=== PATIENT | male | born 1975 | race Caucasian/White ===

== ENCOUNTER 2024-07-27 09:34 | Emergency (ER) | payer MEDICAID, SELFPAY ==
[2024-07-27 09:57] VITALS: BP 151/102; PULSE 93; RESP 16; TEMP 36.9; O2SAT 97; BMI 38.7
--- NOTE | 2024-07-27 10:16 | EDNOTE_ITS ---
ED Eye Problem RME/HPI General Chief complaint: Eye Problems Stated complaint: RIGHT EYE PAIN Time Seen by Provider: 07/27/24 10:06 Arrival date/time: 07/27/24 09:34 49-year-old male reports with complaints of right eye lid itching and irritation for several days. Patient states he has been applying [id number] triple antibiotic ointment to the eye which seems to burn the eye and make the symptoms worse. He denies any loss of vision floaters or tunnel vision. No discharge from the eye headaches dizziness or other vision changes Limitations: no limitations Related Data Home Medications ?Medication ?Instructions ?Recorded ?Confirmed carvedilol 3.125 mg tablet (Coreg) 3.125 mg PO BID 06/21/21 01/19/24 albuterol sulfate 90 mcg/actuation 1 puff inhalation Q4H PRN sob 01/23/22 01/19/24 aerosol inhaler buspirone 10 mg tablet 10 mg PO BID 01/23/22 01/19/24 losartan 100 1 tab PO QDAY 01/23/22 01/19/24 mg-hydrochlorothiazide 25 mg tablet allopurinol 100 mg tablet 100 mg PO DAILY 09/11/22 01/19/24 diclofenac sodium 1 % topical gel 1 g topical DAILY PRN Pain 09/11/22 01/19/24 Previous Rx's ?Medication ?Instructions ?Recorded ondansetron 8 mg disintegrating 8 mg PO Q8H PRN nausea and 12/27/23 tablet vomiting #20 tabs hydrocodone 5 mg-acetaminophen 325 1 tab PO BID PRN pain #10 tabs 02/02/24 mg tablet metoclopramide HCl 10 mg tablet 10 mg PO Q6H PRN nausea and 02/02/24 (Reglan) vomiting #30 tabs Allergies Allergy/AdvReac Type Severity Reaction Status Date / Time No Known Allergies Allergy Verified 07/27/24 09:35 Review of Systems Constitutional Constitutional: Denies chills, Denies fever(s) and Denies headache(s) Eyes Eyes: Reports irritation, Reports itchy eyes and Reports eye pain ENT Ears, Nose, Mouth, and Throat: Denies dizziness and Denies headache(s) Integumentary/Breasts Skin/Breast: Reports erythema and Denies rash Neurologic Neurologic: Denies dizziness and Denies headache(s) Hematologic/Lymphatic Hematologic/Lymphatic: Denies easy bleeding and Denies easy bruising Allergic/Immunologic Allergic/Immunologic: Reports itchy eyes Past Medical History Past Medical History NEUROLOGIC: Negative Neurological Disorders, Cerebrovascular Accident, Transient Ischemic Attacks (TIA), Dementia, Alzheimer's Disease, Parkinson's Disease, Brain Tumor, Meningitis, Seizures, Epilepsy, Multiple Sclerosis, Cerebral Palsy, Amyotrophic Lateral Sclerosis (ALS/Shirley Gehrig's), Guillain-Novelty Syndrome, Spina Bifida, Paralysis, Peripheral Neuropathy, Paulino's Palsy, Subdural Hematoma, Migraine, Head Trauma, Spinal Cord Injury or Traumatic Brain Injury CARDIAC: Positive Cardiac Disorders (CHF), Congestive Heart Failure and Hypertension; Negative Myocardial Infarction, Cardiac Arrhythmia, Atrial Fibrillation, Angina, Heart Murmur, Coronary Artery Disease, Atherosclerotic Heart Disease, Peripheral Vascular Disease, Hypercholesterolemia, Aneurysm, Congenital Heart Disease, Valvular Heart Disease, Rheumatic Fever, Cardiomyopathy, Edema, Pericarditis, Cellulitis, Deep Vein Thrombosis, Hypotension or Varicose Veins RESPIRATORY: Negative Chronic Obstructive Pulmonary Disease (COPD), Asthma, Bronchitis, Emphysema, Pneumonia, Pulmonary Fibrosis, Cystic Fibrosis, Tuberculosis, Pulmonary Embolism, Pulmonary Edema or Sleep Apnea GASTROINTESTINAL: Positive Gastrointestinal Disorders, Diverticulitis, Gastroesophageal Reflux Disease and Obesity; Negative Hepatitis, Cirrhosis, Pancreatitis, Celiac Disease, Gall Bladder Disease, Gastrointestinal Bleed, Esophageal Varices, Bernal's Esophagus, Colitis, Ulcerative Colitis, Diverticulosis, Ulcer, Colorectal Cancer, Irritable Bowel, Crohn's Disease, Obstructive Bowel, Hiatal Hernia or Hemorrhoids GENITOURINARY: Negative Genitourinary Disorders, Renal Disease, Kidney Stones, Polycystic Kidney Disease, Neurogenic Bladder, Inguinal Hernia, Dialysis, Prostate Cancer or Benign Prostatic Hyperplasia REPRODUCTIVE: Negative Breast Cancer, Fibroids, Genital Herpes, Gonorrhea, Syphilis or Testicular Cancer MUSCULOSKELETAL: Positive Musculoskeletal Disorders and Gout; Negative Muscular Dystrophy, Myasthenia Gravis, Marfan's Syndrome, Bone Cancer, Arthritis, Rheumatoid Arthritis, Osteoporosis, Degenerative Disk Disease, Scoliosis, Carpal Tunnel Syndrome, Fibromyalgia, Fractures, Degenerative Joint Disease, Osteomyelitis or Poliovirus ENT: Negative Cataracts, Glaucoma, Blind, Retinal Detachment, Macular Degeneration, Ear Infection, Deafness, Head Trauma or Eye Prosthesis ENDOCRINE: Negative Endocrine Disorders, Diabetes Mellitus Type 1, Diabetes Mellitus Type 2, Hypoglycemia, [place]'s Syndrome, Mega's Disease, Hyperthyroidism, Hypothyroidism, Parathyroid Disease, Pituitary Disease, Systemic Lupus Erythematosus, Syndrome of Inappropriate Antidiuretic Hormone (SIADH), Adrenal Disease or Graves' Disease HEMATOLOGIC: Negative Blood Disorders, Anemia, Leukemia, Hemophilia, Thalassemia, Sickle Cell Disease or Clotting Problems PSYCHO/SOCIAL: Positive Recreational Drug Use, Depression and Anxiety; Negative Psychiatric Problems, Schizophrenia, Bipolar Disorder, Behavior Problems, Self-Mutilation, Attention Deficit Disorder, Attention Deficit Hyperactivity Disorder, Depression, Post Traumatic Stress Disorder or Eating Disorder OTHER HISTORY: Positive Hospitalization, Chicken Pox and Measles; Negative Autoimmune Disease, Down Syndrome, Autism, Developmental Delay, Shingles, Falls, Blood Transfusions, Blood Transfusion Reaction, Anesthesia Reactions, Organ Transplant, Chemotherapy, Radiation Therapy, Hyperbaric Therapy, MRSA, VRSA, Vancomycin-Resistant Enterococci, Human Immunodeficiency Virus (HIV), Mumps, Rubella ([place]ic Measles), Pertussis, Clostridium Difficile, Cancer, Breast Cancer, Cervical Cancer, Colorectal Cancer, Lung Cancer, Ovarian Cancer, Prostate Cancer or Testicular Cancer Family History FAMILY HISTORY: Positive Family Cardiac Disorders and Family Gastrointestinal Problems; Negative Family Psychiatric Problems, Family Respiratory Disorders, Family Cancer, Family Surgery or Family Anesthesia Reaction Surgical History SURGICAL: Positive Tonsillectomy; Negative Cardiac Surgery, Open Heart Surgery, Coronary Artery Bypass Graft, Valve Replacement, Vascular Surgery, Coronary Stent, Cardiac Catheterization, Pacemaker, Angiogram, Auto Implanted Cardiovert Defib, Carotid Endarterectomy, Endocrine Surgery, Thyroidectomy, Ear Surgery, Tympanostomy Tube, Eye Surgery, Nose Surgery, Oral Surgery, Adenoidectomy, Cochlear Implant, Corneal Transplant, Throat Surgery, Abdominal Surgery, Tracheostomy, Gastric Bypass Surgery, Gastrostomy, Bowel Surgery, Nephrectomy, Transurethral Resection, Joint Replacement, Amputation, Open Reduction Internal Fixation, Arthroscopy, Neurologic Surgery, Brain Shunt, Mastectomy, Lumpectomy, Hysterectomy, Tubal Ligation, Section, Vasectomy or Organ Transplant Social History SMOKING STATUS: Current every day smoker SECOND HAND EXPOSURE: No SUBSTANCE USE: marijuana and methamphetamine ED Exam General Limitations: Present no limitations General appearance: Present alert and in no apparent distress Head Head exam: Present atraumatic Eye Eye exam: Present PERRL, EOMI and other (Right lower lid with large hordeolum mildly tender, no discharge no sclera involvement, conjunctiva mildly erythematous); Absent nystagmus Neurological Exam Neurological exam: Present alert, oriented X3 and CN II-XII intact Psychiatric Psychiatric exam: Present normal affect and normal mood Skin Skin exam: Present warm, dry, intact and normal color Course Quality Measures none Vital Signs Vital signs: Vital Signs Temperature 98.5 F 07/27/24 09:57 Pulse Rate 93 07/27/24 09:57 Respiratory Rate 16 07/27/24 09:57 Blood Pressure 151/102 H 07/27/24 09:57 Pulse Oximetry (%) 97 07/27/24 09:57 Oxygen Delivery Method Room Air 07/27/24 09:57 Eye Patient data External records reviewed:: None Clinical information provided by:: patient Social determinants that could affect healthcare access:: none Patient has the following chronic illnesses:: n/a How is presenting disease/condition affected by chronic disease/condition?: no chronic disease Evaluation data The following diagnostics were reviewed and interpreted by me:: other (specify) Lab and/or radiology exams considered but not ordered:: none Interpretation Summary: na Medications / Prescriptions Medications or Prescriptions considered but not ordered:: n/a Medication administrations:: n/a Consultations Consultation(s) initiated? (list below): No Diagnosis Eye Problem Differential Diagnosis: other (chalazion, blepharitis, hordeolum) Most likely diagnosis given after review of the tests above:: Hordeolum Admission Indicated Admission indicated?: not indicated Admission Request Was there a request for admission?: No Disposition Plan Disposition Plan: Discharge Discharge Attestation Discharge Attestation: The patient and all family members were given an opportunity to ask questions and understood the discharge instructions. Discharge instructions specifically effects, indications for sooner follow up or return to the emergency department, and the expected course of current diagnosis. Patient condition: Stable Discharge Plan Plan Patient Disposition: HOME (Self Care) Prescriptions/Referrals Prescriptions/Med Rec: No Action carvedilol [Coreg] 3.125 mg tablet 3.125 mg PO BID Rx Instructions: must administer with a meal/food losartan-hydrochlorothiazide 100-25 mg tablet 1 tab PO QDAY buspirone 10 mg tablet 10 mg PO BID albuterol sulfate 90 mcg/actuation HFA aerosol inhaler 1 puff INHALATION Q4H PRN (Reason: sob) allopurinol 100 mg tablet 100 mg PO DAILY diclofenac sodium 1 % gel 1 g TOPICAL DAILY PRN (Reason: Pain) ondansetron 8 mg tablet,disintegrating 8 mg PO Q8H PRN (Reason: nausea and vomiting) Qty: 20 0RF hydrocodone-acetaminophen 5-325 mg tablet 1 tab PO BID MDD 10 PRN (Reason: pain) Qty: 10 0RF metoclopramide HCl [Reglan] 10 mg tablet 10 mg PO Q6H PRN (Reason: nausea and vomiting) Qty: 30 0RF Problem List Clinical Impression: Hordeolum externum of right lower eyelid, Elevated blood pressure reading Patient/Caregiver Discharge Instructions Discharge Activity: activity as tolerated Education Materials: ED Sty Additional Instructions: Use [employer] baby shampoo no more tears and warm water to wash eyelids and lash area and apply warm compresses periodically. Follow with primary care provider if no improvement in 7 days Print Language: Yoruba Stand Alone Forms: Lia Award Info., Patient Portal Info Letter
== END 2024-07-27 10:24 | disposition home or self-care (01) ==
PROVIDERS: Emergency Provider Emergency Medicine; PCP Family Medicine
DX: H00.012 Hordeolum externum right lower eyelid (principal); I10 Essential (primary) hypertension; F17.290 Nicotine dependence, other tobacco product, uncomplicated
CPT/HCPCS: 99281

== ENCOUNTER 2024-09-12 06:01 | Emergency (ER) | payer MEDICAID, SELFPAY ==
[2024-09-12 06:02] VITALS: BMI 39.9
[2024-09-12 06:08] VITALS: BP 167/94; PULSE 110; RESP 18; TEMP 37.1; O2SAT 99
--- NOTE | 2024-09-12 06:24 | PD.EDURI ---
Upper Respiratory Inf. RME/HPI General Chief Complaint: Flu Like Symptoms Stated Complaint: COUGH,BODYACHES Time Seen by Provider: 09/12/24 06:08 Source: patient Arrival date/time: 09/12/24 06:01 This is a 49-year-old male presents to the emergency department with complaints of cough body aches rhinorrhea for 2 days. He does report he was exposed by his family member with URI symptoms. His friend tested him for COVID at home with an old home COVID test and it was positive. Patient is here requesting COVID test for his symptoms. Has been taking Mucinex and ibuprofen for his symptoms with mild relief. Denies dyspnea, chest pain. Mode of arrival: ambulatory Related Data Home Medications ?Medication ?Instructions ?Recorded ?Confirmed carvedilol 3.125 mg tablet (Coreg) 3.125 mg PO BID 06/21/21 01/19/24 albuterol sulfate 90 mcg/actuation 1 puff inhalation Q4H PRN sob 01/23/22 01/19/24 aerosol inhaler buspirone 10 mg tablet 10 mg PO BID 01/23/22 01/19/24 losartan 100 1 tab PO QDAY 01/23/22 01/19/24 mg-hydrochlorothiazide 25 mg tablet allopurinol 100 mg tablet 100 mg PO DAILY 09/11/22 01/19/24 diclofenac sodium 1 % topical gel 1 g topical DAILY PRN Pain 09/11/22 01/19/24 Previous Rx's ?Medication ?Instructions ?Recorded ondansetron 8 mg disintegrating 8 mg PO Q8H PRN nausea and 12/27/23 tablet vomiting #20 tabs hydrocodone 5 mg-acetaminophen 325 1 tab PO BID PRN pain #10 tabs 02/02/24 mg tablet metoclopramide HCl 10 mg tablet 10 mg PO Q6H PRN nausea and 02/02/24 (Reglan) vomiting #30 tabs albuterol sulfate 90 mcg/actuation 2 inh inhalation Q6H PRN shortness 09/12/24 breath activated powder inhaler of breath or wheezing #1 ea nirmatrelvir 300 mg (150 mg See Rx Instructions PO .COMPLEX 09/12/24 x2)-ritonavir 100 mg tablet,dose #30 tabs pack (Paxlovid) promethazine-DM 6.25 mg-15 mg/5 mL 5 ml PO Q6H PRN cough #118 mL 09/12/24 oral syrup Allergies Allergy/AdvReac Type Severity Reaction Status Date / Time No Known Allergies Allergy Verified 07/27/24 09:35 Review of Systems Review of Systems Systems Reviewed: All systems reviewed, normal except as documented Narrative Review of Systems: Gen: No fever, no chills, no weight loss, + body aches EYES: No discharge, no visual changes, no pain HEENT: No ear pain, + nasal congestion, no sore throat PULM: No shortness of breath, + cough cough, no congestion CV: No chest pain, no dyspnea on exertion, no palpitations GI: No nausea, no vomiting, no diarrhea, no pain, no constipation : No frequency, no urgency, no dysuria Musc/skel: No joint pain, no back pain Skin: No rash Psyc: No hallucinations, no depression Heme/Lymph: No easy bleeding or bruising tendencies Neuro: No weakness, no headache Course Quality Measures none Orders Category Date Time Status Bedside COVID-19 Antigen Test NOW Care 09/12/24 06:23 Active Bedside Influenza A&B Antigen Test NOW Care 09/12/24 06:23 Active Acetaminophen Tab [Tylenol ES Tab] Med 09/12/24 06:23 Discontinued 1,000 mg PO X1 ONE Vital Signs Vital signs: Vital Signs Temperature 98.8 F 09/12/24 06:08 Pulse Rate 110 H 09/12/24 06:08 Respiratory Rate 18 09/12/24 06:08 Blood Pressure 167/94 H 09/12/24 06:08 Pulse Oximetry (%) 99 09/12/24 06:08 Oxygen Delivery Method Room Air 09/12/24 06:08 Upper Respiratory Infection MDM Narrative MDM Narrative:: [id number] negative for COVID was positive. PT is awake and alert in no resp distress. Will provide strict return precautions and instructions on self-isolation/quarantine and anticipatory guidance.Given History and Exam I have a lower suspicion for: Emergent CardioPulmonary causes [such as Acute Asthma or COPD Exacerbation, acute Heart Failure or exacerbation, PE, PTX, atypical ACS, PNA]. Patient advice to take medications as directed. Discussed that viral URIs are a self-limiting disease, and can taking up to 2 weeks to resolve. Ibuprofen prn fevers. Fluids, soups, tea, honey advised. Use humidifier at night. . Educated patient on signs and symptoms which would require immediate evaluation in the nearest ER. Advise patient if symptoms do no improved or worsen to return to the emergency room. Patient verbalized understanding and agreed to current treatment plan Patient data External records reviewed:: [facility] previous records Clinical information provided by:: patient Social determinants that could affect healthcare access:: none Patient has the following chronic illnesses:: Hypertension How is presenting disease/condition affected by chronic disease/condition?: uneffected by Evaluation data The following diagnostics were reviewed and interpreted by me:: lab results Lab and/or radiology exams considered but not ordered:: No Interpretation Summary: Bedside COVID Bedside flu Medications / Prescriptions Medications or Prescriptions considered but not ordered:: No Medication administrations:: Medication Administration History Discontinued Medications Acetaminophen (Acetaminophen 500 Mg Tablet) 1,000 mg PO X1 ONE Stop: 09/12/24 06:24 Last Admin: 09/12/24 06:34 Dose: 1,000 mg Documented By: CVL Tylenol Consultations Consultation(s) initiated? (list below): No Diagnosis Upper Respiratory Differential Diagnosis: upper respiratory infection, viral infection, bronchitis, influenza and pharyngitis Most likely diagnosis given after review of the tests above:: COVID-19 infection Admission Indicated Admission indicated?: not indicated Admission Request Was there a request for admission?: No Disposition Plan Disposition Plan: Discharge Discharge Attestation Discharge Attestation: The patient and all family members were given an opportunity to ask questions and understood the discharge instructions. Discharge instructions specifically effects, indications for sooner follow up or return to the emergency department, and the expected course of current diagnosis. Patient condition: Stable Discharge Plan Plan Patient Disposition: HOME (Self Care) Patient condition on transfer: Stable Prescriptions/Referrals Prescriptions/Med Rec: New Paxlovid 300 mg (150 mg x 2)-100 mg tablets,dose pack See Rx Instructions .ROUTE .COMPLEX Qty: 30 0RF Rx Instructions: take TWO 150 mg tablets of nirmatrelvir with ONE 100 mg tablet of ritonavir twice daily for 5 days albuterol sulfate 90 mcg/actuation aerosol powdr breath activated 2 inh inhalation Q6H PRN (Reason: shortness of breath or wheezing) Qty: 1 0RF promethazine-DM 6.25-15 mg/5 mL syrup 5 ml PO Q6H PRN (Reason: cough) Qty: 118 0RF No Action carvedilol [Coreg] 3.125 mg tablet 3.125 mg PO BID Rx Instructions: must administer with a meal/food losartan-hydrochlorothiazide 100-25 mg tablet 1 tab PO QDAY buspirone 10 mg tablet 10 mg PO BID albuterol sulfate 90 mcg/actuation HFA aerosol inhaler 1 puff INHALATION Q4H PRN (Reason: sob) allopurinol 100 mg tablet 100 mg PO DAILY diclofenac sodium 1 % gel 1 g TOPICAL DAILY PRN (Reason: Pain) ondansetron 8 mg tablet,disintegrating 8 mg PO Q8H PRN (Reason: nausea and vomiting) Qty: 20 0RF hydrocodone-acetaminophen 5-325 mg tablet 1 tab PO BID MDD 10 PRN (Reason: pain) Qty: 10 0RF metoclopramide HCl [Reglan] 10 mg tablet 10 mg PO Q6H PRN (Reason: nausea and vomiting) Qty: 30 0RF Problem List Clinical Impression: COVID-19 Patient/Caregiver Discharge Instructions Discharge Activity: activity as tolerated Education Materials: COVID-19 Home Care Additional Instructions: - It is very important to keep hydrated and keep active despite your COVID infection. -Start your medication today once you receive it from the pharmacy. -Also take additional supportive therapies like Tylenol, ibuprofen Mucinex to help with your cold symptoms. -Follow-up with your primary doctor in 2 to 3 days for follow-up care Return to the emergency department if there is any changes in your condition or call 911. Print Language: Greek Stand Alone Forms: Lia Award Info., Work/School Release, Patient Portal Info Letter PA/GASTON Supervising Physician CRISTIN/GASTON Supervising Physician: Dr Walton
[2024-09-12] MEDS: ACETAMINOPHEN 500 MG TABLET 1000 MG PO (06:34)
[2024-09-12 06:39] VITALS: PULSE 95
[2024-09-12 06:43] VITALS: RESP 18
== END 2024-09-12 06:43 | disposition home or self-care (01) ==
LOC: SERX 06:51
PROVIDERS: Emergency Provider Emergency Medicine; PCP Family Medicine
DX: U07.1 COVID-19 (principal)
CPT/HCPCS: 87400; 87811; 99283; A9270

== ENCOUNTER 2024-09-17 13:12 | Emergency (ER) | payer MEDICAID, SELFPAY ==
[2024-09-17 13:14] VITALS: PULSE 106; RESP 20; O2SAT 99
[2024-09-17 13:42] VITALS: BP 175/94; PULSE 90; RESP 18; TEMP 36.6; O2SAT 98; BMI 39.9
--- NOTE | 2024-09-17 13:44 | PD.EDRME ---
Rapid Medical Screening Exam RME Arrival date/time: 09/17/24 13:12 49-year-old male with history of hypertension and CHF presents to the emergency department today stating he went on a drinking binge and used drugs, patient reports that he tested positive for COVID-19 and therefore he is concerned Chief Complaint: Shortness of Breath/Dyspnea Vital signs: Vital Signs Temperature 98 F 09/17/24 13:42 Pulse Rate 90 09/17/24 13:42 Respiratory Rate 18 09/17/24 13:42 Blood Pressure 175/94 H 09/17/24 13:42 Pulse Oximetry (%) 98 09/17/24 13:42 Oxygen Delivery Method Room Air 09/17/24 13:42
== END 2024-09-17 15:01 | disposition left against medical advice (07) ==
PROVIDERS: Emergency Provider Emergency Medicine; PCP Family Medicine
DX: R06.02 Shortness of breath (principal); Z53.29 Procedure and treatment not carried out because of patient's decision for other reasons
CPT/HCPCS: 80053; 80307; 83880; 84484; 85025; 85610; 85730; 93005; 99281

== ENCOUNTER 2025-02-26 09:16 | Emergency (ER) | payer MEDICAID, SELFPAY ==
--- NOTE | 2025-02-26 09:19 | EKG_ITS ---
[facility] Test Date: 2025-02-26 Pat Name: JOSE HOOD Department: Room: - Gender: Male Tonal Regulator: : 1975 Requested By: Lorenzo Lipscomb (HOSPITALITY SERVICES MANAGER) Order Number: [id number] Reading MD: Lorenzo Lipscomb (HOSPITALITY SERVICES MANAGER) Measurements Intervals [place] Rate: 89 P: 49 OR: 155 QRS: -53 QRSD: 102 T: 73 QT: 385 QTc: 470 Interpretive Statements SINUS RHYTHM PATTERN CONSISTENT WITH PULMONARY DISEASE LEFT ANTERIOR FASCICULAR BLOCK [QRS AXIS <= -45, QR IN I, RS IN II] NONSPECIFIC T-WAVE ABNORMALITY Compared to ECG 12/27/2023 17:14:42 T-wave abnormality now present /store/S0/[id number].pdf
[2025-02-26 09:23] VITALS: BP 126/87; PULSE 95; RESP 18; TEMP 36.8; O2SAT 98; BMI 36.9
--- NOTE | 2025-02-26 09:33 | XR_ITS ---
Examination: PA lateral chest 2 views TECHNIQUE: Upright PA lateral chest 2 views examination: PA lateral chest 2 views TECHNIQUE: Upright PA lateral chest 2 views Date and time: February 26, 2025 0955 hours INDICATIONS: Acute chest pain today. FINDINGS: Normal heart size. The lungs are clear. The osseous structures are intact IMPRESSION: No active disease.
--- NOTE | 2025-02-26 09:33 | XR_ITS ---
Examination: CT brain head without contrast. 2-D sagittal coronal reconstructions Date and time of exam:February 24, 20102024 1008 hours Comparison November 02, 2017 INDICATIONS: Headaches numbness in the face this morning CTDI: vol (mGy):61.1 DLP: (mGycm):1276 Technique: Multiple CT axial sections of the brain have been obtained, 5 mm slice thickness. Contrast has not been administered. 2-D sagittal, coronal reconstructions have been obtained Low dose protocols were performed. One or more of the following dose reduction techniques were used; automated exposure control, adjustment of the mA and/or KV according to patient size, use of iterative reconstruction technique. Findings: No significant ventricular enlargement. Intra-axial or extra-axial hemorrhage density is not seen. No mass effect or midline shift Basal cisterns are not remarkable. Fourth ventricle is midline. Cranial vault intact. Impression: Negative for acute hemorrhage, mass effect or midline shift As clinically warranted, brain MRI follow-up would best assess for demyelinating disease
--- NOTE | 2025-02-26 09:34 | PD.EDRME ---
Rapid Medical Screening Exam RME Arrival date/time: 02/26/25 09:16 49-year-old male presents to the emergency department today for complaints of chest pain/left-sided facial numbness patient reports the numbness is resolving. Chief Complaint: Chest Pain Vital signs: Vital Signs Temperature 98.3 F 02/26/25 09:23 Pulse Rate 95 02/26/25 09:23 Respiratory Rate 18 02/26/25 09:23 Blood Pressure 126/87 H 02/26/25 09:23 Pulse Oximetry (%) 98 02/26/25 09:23 Oxygen Delivery Method Room Air 02/26/25 09:23
[2025-02-26 09:56] LABS: Basophils # (Auto) 0.1 Thou/mm3 (0.0-0.2); Basophils % (Auto) 1 % (0-2.5); Eosinophils # (Auto) 0.1 Thou/mm3 (0.0-0.5); Eosinophils % (Auto) 1 % (0-10); Hematocrit 37.4 % (41.0-53.0); Hemoglobin 13.6 g/dL (13.5-16.0); Immature Granulocytes Auto 0.03 Thou/mm3 (0.00-0.00); Lymphocytes # (Auto) 1.6 Thou/mm3 (1.0-4.8); Lymphocytes % (Auto) 16 % (10-50); Mean Corpuscular HGB Conc 36.4 g/dl (31.0-37.0); Mean Corpuscular Hemoglobin 31.1 pg (25.0-35.0); Mean Corpuscular Volume 86 fL (80-100); Monocytes # (Auto) 0.8 Thou/mm3 (0.0-0.8); Monocytes % (Auto) 8 % (0-12); Neutrophils # (Auto) 7.4 Thou/mm3 (1.8-7.7); Neutrophils % (Auto) 75 % (37-80); Nucleated Red Blood Cell # 0.00 Thou/mm3 (0.00-0.00); Nucleated Red Blood Cell % 0 /100 WBC (0); Platelet Count 221 Thou/mm3 (140-440); RDW Standard Deviation 38.5 fL (35.1-43.9); Red Blood Count 4.37 Miln/mm3 (4.50-5.90); White Blood Count 10.0 Thou/mm3 (3.8-10.6)
[2025-02-26 10:12] LABS: Alanine Aminotransferase 14 U/L (10-49); Albumin, Serum 4.6 gm/dL (3.5-5.0); Albumin/Globulin Ratio 1.4 (1.2-2.2); Alkaline Phosphatase 96 U/L (46-116); Anion Gap 8 (7-16); Aspartate Amino Transferase 24 U/L (0-34); BUN/Creatinine Ratio 16 Ratio (12-20); Bilirubin,Total 0.6 mg/dL (0.3-1.2); Blood Urea Nitrogen 26 mg/dL (9-23); Calcium 9.0 mg/dL (8.3-10.6); Calcium (Corrected) 9.0 mg/dL (8.5-10.1); Carbon Dioxide 25.9 mMol/L (20.0-31.0); Chloride 97 mMol/L (98-107); Creatinine (Component) 1.6 mg/dL (0.6-1.3); Estimated Creatinine Clearance 68.6 mL/min (>60); Globulin 3.2 gm/dL (2.3-3.5); Glucose 120 mg/dL (74-106); Osmolality,Calculated 268 (275-295); Potassium 4.2 mMol/L (3.4-5.1); Sodium 131 mMol/L (136-145); Total Protein 7.8 gm/dL (5.7-8.2); Troponin I < 0.020 ng/mL (0.0-0.045); eGFR 52 See Note
--- NOTE | 2025-02-26 12:06 | PD.EDDENTL ---
ED Dental RME/HPI General Chief complaint: Chest Pain Stated complaint: INTERMITTENT NUMBNESS TO LIP SINCE AND C/P 8AM Time Seen by Provider: 02/26/25 11:24 Arrival date/time: 02/26/25 09:16 RME / HPI RME / HPI Narrative: 49-year-old male patient came in for evaluation regarding left-sided facial numbness more on the left clavicular area, has been ongoing since yesterday, neck comes and goes, associated with left-sided chest discomfort. Patient also complained of worsening left lower premolar dental pain with gumline swelling, severity moderate for several days. Patient denies any difficulty swallowing. Denies any upper or lower extremity weakness. Denies any headache denies any slurring speech. Patient is ambulatory. Related Data Home Medications ?Medication ?Instructions ?Recorded ?Confirmed carvedilol 3.125 mg tablet (Coreg) 3.125 mg PO BID 06/21/21 01/19/24 albuterol sulfate 90 mcg/actuation 1 puff inhalation Q4H PRN sob 01/23/22 01/19/24 aerosol inhaler buspirone 10 mg tablet 10 mg PO BID 01/23/22 01/19/24 losartan 100 1 tab PO QDAY 01/23/22 01/19/24 mg-hydrochlorothiazide 25 mg tablet allopurinol 100 mg tablet 100 mg PO DAILY 09/11/22 01/19/24 diclofenac sodium 1 % topical gel 1 g topical DAILY PRN Pain 09/11/22 01/19/24 Previous Rx's ?Medication ?Instructions ?Recorded ondansetron 8 mg disintegrating 8 mg PO Q8H PRN nausea and 12/27/23 tablet vomiting #20 tabs hydrocodone 5 mg-acetaminophen 325 1 tab PO BID PRN pain #10 tabs 02/02/24 mg tablet metoclopramide HCl 10 mg tablet 10 mg PO Q6H PRN nausea and 02/02/24 (Reglan) vomiting #30 tabs albuterol sulfate 90 mcg/actuation 2 inh inhalation Q6H PRN shortness 09/12/24 breath activated powder inhaler of breath or wheezing #1 ea nirmatrelvir 300 mg (150 mg See Rx Instructions PO .COMPLEX 09/12/24 x2)-ritonavir 100 mg tablet,dose #30 tabs pack (Paxlovid) promethazine-DM 6.25 mg-15 mg/5 mL 5 ml PO Q6H PRN cough #118 mL 09/12/24 oral syrup clindamycin HCl 300 mg capsule 300 mg PO TID #21 caps 02/26/25 ibuprofen 800 mg tablet 800 mg PO Q8H PRN pain #30 tabs 02/26/25 Allergies Allergy/AdvReac Type Severity Reaction Status Date / Time No Known Allergies Allergy Verified 09/17/24 13:13 Review of Systems Review of Systems Narrative Review of Systems: Review of system reviewed and within normal limits except mentioned in HPI ED Exam Narrative Physical exam: VITAL SIGNS: Reviewed. GENERAL APPEARANCE: Alert and interactive, follows commands, no acute distress, HEAD AND FACE: Non-traumatic. ENT: PERRL, pink conjunctivitis, eyelid no trauma, Mucous membrane moist. Left lower molar with cavity and tenderness and gumline swelling nonfluctuant NECK: Supple, nontender, no nuchal rigidity. CHEST: No tenderness, no crepitus, no paradoxical movement, no retractions. LUNGS: Clear, well ventilated, symmetric, no rales, no wheezing, no ronchi, no stridor, good breath sounds bilaterally. HEART: Regular rate, regular rhythm, no murmur, no gallops. ABDOMEN: Soft, positive bowel sounds, nondistended, no guarding, nontender, no rebound, no masses, RECTAL: Deferred. GENITAL: Deferred. NEUROLOGICAL: Gross motor function intact sensory function intact, Appropriate for age. MUSCULOSKELETAL: low back nontender, full range of motion. EXTREMITIES: Nontender, full range of motion. SKIN: Color pink, dry, no rash, no lacerations, no abrasions, no contusions. LYMPHATICS: Deferred. Course Quality Measures none Orders Category Date Time Status EKG (ED ONLY) *Do not use* NOW Care 02/26/25 09:[address] head/brain wo con Stat Exams 02/26/25 09:33 Completed EKG (ED Only) Stat Exams 02/26/25 09:19 Draft XR chest 2V Stat Exams 02/26/25 09:33 Completed CBC Stat Lab 02/26/25 09:48 Completed Comprehensive Metabolic Panel Stat Lab 02/26/25 09:48 Completed Troponin I Stat Lab 02/26/25 09:48 Completed Vital Signs Vital signs: Vital Signs Temperature 98.3 F 02/26/25 09:23 Pulse Rate 95 02/26/25 09:23 Respiratory Rate 18 02/26/25 09:23 Blood Pressure 126/87 H 02/26/25 09:23 Pulse Oximetry (%) 98 02/26/25 09:23 Oxygen Delivery Method Room Air 02/26/25 09:23 Dental / Oral MDM Narrative MDM Narrative:: 49-year-old male patient came in for evaluation regarding left-sided facial numbness more on the left clavicular area, has been ongoing since yesterday, neck comes and goes, associated with left-sided chest discomfort. Patient also complained of worsening left lower premolar dental pain with gumline swelling, severity moderate for several days. Patient denies any difficulty swallowing. Denies any upper or lower extremity weakness. Denies any headache denies any slurring speech. Patient is ambulatory. CT scan of the head came back unremarkable. Laboratory workup all came back unremarkable. Including normal troponin. EKG showed normal sinus rhythm, no ST segment elevation or depression noted. Also read by ER MD. Results discussed with the patient. Patient will be sent home on clindamycin for infected dental caries Patient data External records reviewed:: None Clinical information provided by:: patient Social determinants that could affect healthcare access:: none Patient has the following chronic illnesses:: None How is presenting disease/condition affected by chronic disease/condition?: no chronic disease Evaluation data The following diagnostics were reviewed and interpreted by me:: lab results, radiology exam(s) and EKG tracing(s) Lab and/or radiology exams considered but not ordered:: None Interpretation Summary: See results in MDM Medications / Prescriptions Medications or Prescriptions considered but not ordered:: None Medication administrations:: None Consultations Consultation(s) initiated? (list below): No Diagnosis Dental Differential Diagnosis: gingival abscess and dental caries Most likely diagnosis given after review of the tests above:: Paresthesia, infected dental caries, chest discomfort Admission Indicated Admission indicated?: not indicated Explain why admission is indicated or not indicated:: Patient stable for discharge, patient told me that his paresthesia is totally gone, and chest pain is totally gone also. Repeat troponin is not needed at this time. Admission Request Was there a request for admission?: No Disposition Plan Disposition Plan: Discharge Discharge Attestation Discharge Attestation: The patient and all family members were given an opportunity to ask questions and understood the discharge instructions. Discharge instructions specifically effects, indications for sooner follow up or return to the emergency department, and the expected course of current diagnosis. Patient condition: Stable Discharge Plan Plan Patient Disposition: HOME (Self Care) Discharge Disposition comment: Stable Prescriptions/Referrals Prescriptions/Med Rec: New clindamycin HCl 300 mg capsule 300 mg PO TID Qty: 21 0RF ibuprofen 800 mg tablet 800 mg PO Q8H PRN (Reason: pain) Qty: 30 0RF No Action carvedilol [Coreg] 3.125 mg tablet 3.125 mg PO BID Rx Instructions: must administer with a meal/food losartan-hydrochlorothiazide 100-25 mg tablet 1 tab PO QDAY buspirone 10 mg tablet 10 mg PO BID albuterol sulfate 90 mcg/actuation HFA aerosol inhaler 1 puff INHALATION Q4H PRN (Reason: sob) allopurinol 100 mg tablet 100 mg PO DAILY diclofenac sodium 1 % gel 1 g TOPICAL DAILY PRN (Reason: Pain) ondansetron 8 mg tablet,disintegrating 8 mg PO Q8H PRN (Reason: nausea and vomiting) Qty: 20 0RF hydrocodone-acetaminophen 5-325 mg tablet 1 tab PO BID MDD 10 PRN (Reason: pain) Qty: 10 0RF metoclopramide HCl [Reglan] 10 mg tablet 10 mg PO Q6H PRN (Reason: nausea and vomiting) Qty: 30 0RF Paxlovid 300 mg (150 mg x 2)-100 mg tablets,dose pack See Rx Instructions .ROUTE .COMPLEX Qty: 30 0RF Rx Instructions: take TWO 150 mg tablets of nirmatrelvir with ONE 100 mg tablet of ritonavir twice daily for 5 days albuterol sulfate 90 mcg/actuation aerosol powdr breath activated 2 inh inhalation Q6H PRN (Reason: shortness of breath or wheezing) Qty: 1 0RF promethazine-DM 6.25-15 mg/5 mL syrup 5 ml PO Q6H PRN (Reason: cough) Qty: 118 0RF Referrals: Nicholas Fernandez MD [Primary Care Provider] - In 1 week Problem List Clinical Impression: Infected dental caries, Paresthesia Patient/Caregiver Discharge Instructions Discharge Activity: activity as tolerated Education Materials: ED Dental Cavity, ED Paraesthesias Additional Instructions: Thank you for the opportunity for serving you today. You are stable for discharged . You are advised to: Follow-up with your dentist in 1 to 2 days Return to ED for worsening of symptoms Increase oral fluids Take medication as prescribed Print Language: Belarusian Stand Alone Forms: Lia Award Info., Patient Portal Info Letter PA/GASTON Supervising Physician CRISTIN/GASTON Supervising Physician: MD Niki
[2025-02-26 12:23] VITALS: BP 129/88; PULSE 84; RESP 18; TEMP 36.6; O2SAT 98
== END 2025-02-26 12:24 | disposition home or self-care (01) ==
PROVIDERS: Nurse Practitioner Primary Care; Emergency Provider Emergency Medicine; PCP Family Medicine
DX: K04.7 Periapical abscess without sinus (principal); K02.9 Dental caries, unspecified; R20.0 Anesthesia of skin; I44.4 Left anterior fascicular block
CPT/HCPCS: 36415; 70450; 71046; 80053; 84484; 85025; 93005; 99283

== ENCOUNTER 2025-03-31 04:13 | Emergency (ER) | payer MEDICAID, SELFPAY ==
[2025-03-31 04:15] VITALS: BMI 39.9
--- NOTE | 2025-03-31 04:16 | EKG_ITS ---
[facility] Test Date: 2025-03-31 Pat Name: JOSE HOOD Department: Room: - Gender: Male [employer] Worker: : 1975 Requested By: ED Temporary Provider Order Number: [id number] Reading MD: ED Temporary Provider Measurements Intervals [place] Rate: 94 P: 48 OR: 154 QRS: -55 QRSD: 97 T: 70 QT: 350 QTc: 439 Interpretive Statements SINUS RHYTHM PATTERN CONSISTENT WITH PULMONARY DISEASE LEFT ANTERIOR FASCICULAR BLOCK [QRS AXIS <= -45, QR IN I, RS IN II] Compared to ECG 02/26/2025 09:26:14 T-wave abnormality no longer present /store/S0/[id number]/[id number].pdf
--- NOTE | 2025-03-31 04:29 | XR_ITS ---
: Examination: PA chest single view TECHNIQUE: Upright PA chest single view Date and time: March 31, 2025, 0440 hours Comparison February 26, 2025 INDICATIONS: Shortness of breath today. FINDINGS: Mild prominence left ventricle. Mild to moderate vascular congestion. No lobar pneumonia or pulmonary edema IMPRESSION: Mild to moderate vascular congestion
--- NOTE | 2025-03-31 04:31 | EDNOTE_ITS ---
ED General RME/HPI General Chief complaint: Shortness of Breath/Dyspnea Stated complaint: SOB Time Seen by Provider: 03/31/25 04:26 Arrival date/time: 03/31/25 04:13 RME / HPI RME / HPI narrative: 50-year-old male with past medical history of hypertension, GERD, diverticulosis, polysubstance use in the past, and HFpEF (50 to 55%) comes into the ED with multiple complaints. Patient has been complaining of chest pain epigastric that started this morning along with shortness of breath and feelings of anxiety. Patient states that he has been having episode of binge drinking for the past few days drinking a lot of vodka and that he took male enhancer [id number] oral yesterday and he would like to be checked out as he wants to make sure nothing else is going on for his heart. Patient also was complaining of some on and off diarrhea along with feelings of nauseousness and possible vomiting. States that he also gets some time lower extremity swelling and sometimes feel like he gets swollen all the way to the abdomen including his scrotum. States he does not have any burning sensation urination, but does state that when he coughs he gets this sharp pain in his urethra. Patient states that his last drink was around 4 hours ago. Patient also requesting a work release note and IV fluids. Admits alcohol use, admits marijuana use, denies any cigarette smoking or other illicit drugs at this time. Related Data Home Medications ?Medication ?Instructions ?Recorded ?Confirmed carvedilol 3.125 mg tablet (Coreg) 3.125 mg PO BID 10/1001/19/24 albuterol sulfate 90 mcg/actuation 1 puff inhalation Q 4H PRN sob 01/23/22 01/19/24 aerosol inhaler buspirone 10 mg tablet 10 mg PO BID 01/23/22 losartan 100 1 tab PO QDAY 01/23/2201/18 mg-hydrochlorothiazide 25 mg tablet allopurinol 100 mg tablet 100 mg PO DAILY 09/11/2209/12 diclofenac sodium 1 % topical gel 1 g topical DAILY NC N Pain 09/11/22 01/19/24 Previous Rx's ?Medication ?Instructions ?Recorded ondansetron 8 mg disintegrating 8 mg PO Q8H PRN nausea and 12/27/23 tablet vomiting #20 tabs hydrocodone 5 mg-acetaminophen 325 1 tab PO BID PRN pa in #10 tabs 02/02/24 mg tablet metoclopramide HCl 10 mg tablet 10 mg PO Q6H PRN nause a and 02/02/24 (Reglan) vomiting #30 tabs albuterol sulfate 90 mcg/actuation 2 inh inhalation Q6 H PRN shortness 09/12/24 breath activated powder inhaler of breath or wheezing #1 ea nirmatrelvir 300 mg (150 mg See Rx Instructions PO .CO MPLEX 09/12/24 x2)-ritonavir 100 mg tablet,dose #30 tabs pack (Paxlovid) promethazine-DM 6.25 mg-15 mg/5 mL 5 ml PO Q6H PRN cou gh #118 mL 09/12/24 oral syrup clindamycin HCl 300 mg capsule 300 mg PO TID #21 caps 02/26/25 ibuprofen 800 mg tablet 800 mg PO Q8H PRN pain #30 t abs 02/26/25 Allergies Allergy/AdvReac Type Severity Reaction Status Date / Time No Known Allergies Allergy Verified 03/31/25 04:14 Review of Systems Review of Systems Systems Reviewed: All systems reviewed, normal except as documented Past Medical History Past Medical History NEUROLOGIC: Negative Neurological Disorders, Cerebrovascular Accident, Transient Ischemic Attacks (TIA), Dementia, Alzheimer's Disease, Parkinson's Disease, Brain Tumor, Meningitis, Seizures, Epilepsy, Multiple Sclerosis, Cerebral Palsy, Amyotrophic Lateral Sclerosis (ALS/Shirley Gehrig's), Guillain-Killbuck Syndrome, Spina Bifida, Paralysis, Peripheral Neuropathy, Paulino's Palsy, Subdural Hematoma, Migraine, Head Trauma, Spinal Cord Injury or Traumatic Brain Injury CARDIAC: Positive Cardiac Disorders (CHF), Congestive Heart Failure and Hypertension; Negative Myocardial Infarction, Cardiac Arrhythmia, Atrial Fibrillation, Angina, Heart Murmur, Coronary Artery Disease, Atherosclerotic Heart Disease, Peripheral Vascular Disease, Hypercholesterolemia, Aneurysm, Congenital Heart Disease, Valvular Heart Disease, Rheumatic Fever, Cardiomyopathy, Edema, Pericarditis, Cellulitis, Deep Vein Thrombosis, Hypotension or Varicose Veins RESPIRATORY: Negative Chronic Obstructive Pulmonary Disease (COPD), Asthma, Bronchitis, Emphysema, Pneumonia, Pulmonary Fibrosis, Cystic Fibrosis, Tuberculosis, Pulmonary Embolism, Pulmonary Edema or Sleep Apnea GASTROINTESTINAL: Positive Gastrointestinal Disorders, Diverticulitis, Gastroesophageal Reflux Disease and Obesity; Negative Hepatitis, Cirrhosis, Pancreatitis, Celiac Disease, Gall Bladder Disease, Gastrointestinal Bleed, Esophageal Varices, Bernal's Esophagus, Colitis, Ulcerative Colitis, Diverticulosis, Ulcer, Colorectal Cancer, Irritable Bowel, Crohn's Disease, Obstructive Bowel, Hiatal Hernia or Hemorrhoids GENITOURINARY: Negative Genitourinary Disorders, Renal Disease, Kidney Stones, Polycystic Kidney Disease, Neurogenic Bladder, Inguinal Hernia, Dialysis, Prostate Cancer or Benign Prostatic Hyperplasia REPRODUCTIVE: Negative Breast Cancer, Fibroids, Genital Herpes, Gonorrhea, Syphilis or Testicular Cancer MUSCULOSKELETAL: Positive Musculoskeletal Disorders and Gout; Negative Muscular Dystrophy, Myasthenia Gravis, Marfan's Syndrome, Bone Cancer, Arthritis, Rheumatoid Arthritis, Osteoporosis, Degenerative Disk Disease, Scoliosis, Carpal Tunnel Syndrome, Fibromyalgia, Fractures, Degenerative Joint Disease, Osteomyelitis or Poliovirus ENT: Negative Cataracts, Glaucoma, Blind, Retinal Detachment, Macular Degenera tion, Ear Infection, Deafness, Head Trauma or Eye Prosthesis ENDOCRINE: Negative Endocrine Disorders, Diabetes Mellitus Type 1, Diabetes Mellitus Type 2, Hypoglycemia, Maurilio's Syndrome, Mcduffie's Disease, Hyperthyroidism, Hypothyroidism, Parathyroid Disease, Pituitary Disease, Systemic Lupus Erythematosus, Syndrome of Inappropriate Antidiuretic Hormone (SIADH), Adrenal Disease or Graves' Disease HEMATOLOGIC: Negative Blood Disorders, Anemia, Leukemia, Hemophilia, Thalassemia, Sickle Cell Disease or Clotting Problems PSYCHO/SOCIAL: Positive Recreational Drug Use, Depression and Anxiety; Negative Psychiatric Problems, Schizophrenia, Bipolar Disorder, Behavior Problems, Self-Mutilation, Attention Deficit Disorder, Attention Deficit Hyperactivity Disorder, Depression, Post Traumatic Stress Disorder or Eating Disorder OTHER HISTORY: Positive Hospitalization, Chicken Pox and Measles; Negative Autoimmune Disease, Down Syndrome, Autism, Developmental Delay, Shingles, Falls, Blood Transfusions, Blood Transfusion Reaction, Anesthesia Reactions, Organ Transplant, Chemotherapy, Radiation Therapy, Hyperbaric Therapy, MRSA, VRSA, Vancomycin-Resistant Enterococci, Human Immunodeficiency Virus (HIV), Mumps, Rubella ([place]ian Measles), Pertussis, Clostridium Difficile, Cancer, Breast Cancer, Cervical Cancer, Colorectal Cancer, Lung Cancer, Ovarian Cancer, Prostate Cancer or Testicular Cancer Family History FAMILY HISTORY: Positive Family Cardiac Disorders and Family Gastrointestinal Problems; Negative Family Psychiatric Problems, Family Respiratory Disorders, Family Cancer, Family Surgery or Family Anesthesia Reaction Surgical History SURGICAL: Positive Tonsillectomy; Negative Cardiac Surgery, Open Heart Surgery, Coronary Artery Bypass Graft, Valve Replacement, Vascular Surgery, Coronary Stent, Cardiac Catheterization, Pacemaker, Angiogram, Auto Implanted Cardiovert Defib, Carotid Endarterectomy, Endocrine Surgery, Thyroidectomy, Ear Surgery, Tympanostomy Tube, Eye Surgery, Nose Surgery, Oral Surgery, Adenoidectomy, Cochlear Implant, Corneal Transplant, Throat Surgery, Abdominal Surgery, Tracheostomy, Gastric Bypass Surgery, Gastrostomy, Bowel Surgery, Nephrectomy, Transurethral Resection, Joint Replacement, Amputation, Open Reduction Internal Fixation, Arthroscopy, Neurologic Surgery, Brain Shunt, Mastectomy, Lumpectomy, Hysterectomy, Tubal Ligation, Section, Vasectomy or Organ Transplant Social History SMOKING STATUS: Current every day smoker SECOND HAND EXPOSURE: No SUBSTANCE USE: marijuana and methamphetamine ED Exam Narrative Physical exam: Gen: A&O X 3, anxious appearing Neck: Supple, full range of motion, no observable masses, No meningeal sign. Lungs: No Respiratory distress, clear bilateral. CV: RRR, no murmurs appreciated. Abdomen: Soft, but distended, nontender, no rebound tenderness. MSK: No joint swelling, no redness, peripheral pulses presents, lumbar with no edema, lower extremity edema. Skin: No rashes, petechiae, lesions. Neuro: No focal neurological deficits appreciated, sensory and motor intact. Psych: Very anxious appearing Course Quality Measures none Orders Category Date Time Status EKG (ED ONLY) *Do not use* NOW Care 03/31/25 04:16 Active CXRP [XR chest 1V portable] Stat Exams 03/31/25 04:29 Taken EKG (ED Only) Stat Exams 03/31/25 04:16 Draft CBC [CBC] Stat Lab 03/31/25 05:10 Completed CMP [Comprehensive Metabolic Panel] Stat Lab 03/31/25 05:10 Completed Drug Screen,Urine Stat Lab 03/31/25 05:35 Received Magnesium Stat Lab 03/31/25 05:10 Completed Procalcitonin Stat Lab 03/31/25 05:10 Completed Troponin I Stat Lab 03/31/25 05:10 Completed UA [Urinalysis] Stat Lab 03/31/25 05:35 Received Vital Signs Vital signs: Vital Signs Temperature 98.9 F 03/31/25 04:34 Pulse Rate 95 03/31/25 04:34 Respiratory Rate 20 03/31/25 04:34 Blood Pressure 161/97 H 03/31/25 04:34 Pulse Oximetry (%) 96 03/31/25 04:34 Oxygen Delivery Method Room Air 03/31/25 04:34 Discharge Plan Plan Patient Disposition: HOME (Self Care) Prescriptions/Referrals Prescriptions/Med Rec: No Action carvedilol [Coreg] 3.125 mg tablet 3.125 mg PO BID Rx Instructions: must administer with a meal/food losartan-hydrochlorothiazide 100-25 mg tablet 1 tab PO QDAY buspirone 10 mg tablet 10 mg PO BID albuterol sulfate 90 mcg/actuation HFA aerosol inhaler 1 puff INHALATION Q4H PRN (Reason: sob) allopurinol 100 mg tablet 100 mg PO DAILY diclofenac sodium 1 % gel 1 g TOPICAL DAILY PRN (Reason: Pain) ondansetron 8 mg tablet,disintegrating 8 mg PO Q8H PRN (Reason: nausea and vomiting) Qty: 20 0RF hydrocodone-acetaminophen 5-325 mg tablet 1 tab PO BID MDD 10 PRN (Reason: pain) Qty: 10 0RF metoclopramide HCl [Reglan] 10 mg tablet 10 mg PO Q6H PRN (Reason: nausea and vomiting) Qty: 30 0RF Paxlovid 300 mg (150 mg x 2)-100 mg tablets,dose pack See Rx Instructions .ROUTE .COMPLEX Qty: 30 0RF Rx Instructions: take TWO 150 mg tablets of nirmatrelvir with ONE 100 mg tablet of ritonavir twice daily for 5 days albuterol sulfate 90 mcg/actuation aerosol powdr breath activated 2 inh inhalation Q6H PRN (Reason: shortness of breath or wheezing) Qty: 1 0RF promethazine-DM 6.25-15 mg/5 mL syrup 5 ml PO Q6H PRN (Reason: cough) Qty: 118 0RF clindamycin HCl 300 mg capsule 300 mg PO TID Qty: 21 0RF ibuprofen 800 mg tablet 800 mg PO Q8H PRN (Reason: pain) Qty: 30 0RF Referrals: Nicholas Fernandez MD [Primary Care Provider] - In 1 week Problem List Clinical Impression: Nonspecific chest pain, Shortness of breath, Acid reflux Patient/Caregiver Discharge Instructions Other Activity Instructions:: Follow-up with your primary care physician within 2 to 3 days. Follow-up with your personal computer network engineer in the next 5 days. Would recommend decreasing alcohol intake as this could be contributing to your symptoms. Would recommend discussing with primary care physician the use of male enhancing drugs. Recommend completing fatty or spicy foods late at night Come back to the ED if symptoms persist or worsen. Education Materials: ED Chest Pain, Uncertain Cause, ED Shortness of Breath (Dyspnea) Print Language: Amharic Stand Alone Forms: Lia Award Info., Work/School Release, Patient Portal Info Letter MDM Narrative MDM hospital course: Patient was seen and evaluated upon arrival by myself. Diagnostic lab and imaging were ordered. Patient saturating well on room air and lung sounds were clear bilaterally. Checks x-ray showed poor inspiratory effort, but otherwise no consolidations or prominent vascular congestion appreciated. Patient is troponins came back negative and labs were otherwise unremarkable. Patient's osmolality was also normal. At this time patient is stable enough to be discharged back home. Patient will need to follow-up with primary care physician and personal computer network engineer. Counseled the patient about alcohol use and male enhancing drugs as well as late-night greasy, fatty, or spicy foods which could be contributing to his chest pain likely in the setting of acid reflux. Patient agrees with plan. Case disclosed with Attending Dr. Deepak Jonas PGY2 Disclaimer: Even though this this note was dictated by speech recognition and even though it was carefully revised there may still be minor errors in pathology secretary/transcriptionist due to voice recognition software.
[2025-03-31 04:34] VITALS: BP 161/97; PULSE 95; RESP 20; TEMP 37.2; O2SAT 96
[2025-03-31 05:22] LABS: Basophils # (Auto) 0.1 Thou/mm3 (0.0-0.2); Basophils % (Auto) 2 % (0-2.5); Eosinophils # (Auto) 0.1 Thou/mm3 (0.0-0.5); Eosinophils % (Auto) 2 % (0-10); Hematocrit 38.8 % (41.0-53.0); Hemoglobin 13.5 g/dL (13.5-16.0); Immature Granulocytes Auto 0.03 Thou/mm3 (0.00-0.00); Lymphocytes # (Auto) 2.2 Thou/mm3 (1.0-4.8); Lymphocytes % (Auto) 42 % (10-50); Mean Corpuscular HGB Conc 34.8 g/dl (31.0-37.0); Mean Corpuscular Hemoglobin 31.6 pg (25.0-35.0); Mean Corpuscular Volume 91 fL (80-100); Monocytes # (Auto) 0.6 Thou/mm3 (0.0-0.8); Monocytes % (Auto) 11 % (0-12); Neutrophils # (Auto) 2.3 Thou/mm3 (1.8-7.7); Neutrophils % (Auto) 43 % (37-80); Nucleated Red Blood Cell # 0.00 Thou/mm3 (0.00-0.00); Nucleated Red Blood Cell % 0 /100 WBC (0); Platelet Count 188 Thou/mm3 (140-440); RDW Standard Deviation 43.8 fL (35.1-43.9); Red Blood Count 4.27 Miln/mm3 (4.50-5.90); White Blood Count 5.3 Thou/mm3 (3.8-10.6)
[2025-03-31 05:42] LABS: Alanine Aminotransferase 13 U/L (10-49); Albumin, Serum 4.5 gm/dL (3.5-5.0); Albumin/Globulin Ratio 1.6 (1.2-2.2); Alkaline Phosphatase 97 U/L (46-116); Anion Gap 8 (7-16); Aspartate Amino Transferase 19 U/L (0-34); BUN/Creatinine Ratio 13 Ratio (12-20); Bilirubin,Total 0.3 mg/dL (0.3-1.2); Blood Urea Nitrogen 15 mg/dL (9-23); Calcium 8.9 mg/dL (8.3-10.6); Calcium (Corrected) 8.9 mg/dL (8.5-10.1); Carbon Dioxide 28.9 mMol/L (20.0-31.0); Chloride 104 mMol/L (98-107); Creatinine (Component) 1.2 mg/dL (0.6-1.3); Estimated Creatinine Clearance 94.2 mL/min (>60); Globulin 2.9 gm/dL (2.3-3.5); Glucose 124 mg/dL (74-106); Magnesium 1.6 mg/dL (1.6-2.6); Osmolality,Calculated 283 (275-295); Potassium 3.9 mMol/L (3.4-5.1); Procalcitonin 0.08 ng/ml (0.0-0.49); Sodium 141 mMol/L (136-145); Total Protein 7.4 gm/dL (5.7-8.2); Troponin I < 0.020 ng/mL (0.0-0.045); eGFR > 60 See Note
[2025-03-31 05:43] LABS: Collection Type, Urine Voided
[2025-03-31 06:01] VITALS: RESP 18
[2025-03-31 06:06] LABS: Bilirubin,Urine Negative (Negative); Blood,Urine Negative (Negative); Clarity,Urine Clear (Clear/Hazy); Color,Urine Lt-Yellow (Lt Yel-Yel); Glucose, Urine Negative (Negative); Ketones,Urine Negative (Negative); Leukocyte Esterase,Urine Negative (Negative); Nitrite,Urine Negative (Negative); PH,Urine 5.5 (5.0-7.0); Protein,Urine Negative (Neg - Trace); RBC,Urine 1 /hpf (0-3); Specific Gravity,Urine 1.019 (1.001-1.035); Squamous Epithelial Cell,Urine < 1 /hpf (0-5); Urobilinogen,Urine Negative mg/dL (0.0-1.0); WBC,Urine < 1 /hpf (0-5)
[2025-03-31 06:46] LABS: Amphetamine/Methamp Scrn,U Negative (Negative); Barbiturate Screen,Urine Negative (Negative); Benzodiazepines Screen,Urine Negative (Negative); Benzoylecgonine Screen, Ur Negative (Negative); Fentanyl Screen,Urine Negative (Negative); Opiate Screen,Urine Negative (Negative); THC Screen,Urine Positive (Negative)
== END 2025-03-31 06:02 | disposition home or self-care (01) ==
PROVIDERS: PCP Family Medicine
DX: R07.89 Other chest pain (principal); K21.9 Gastro-esophageal reflux disease without esophagitis; I10 Essential (primary) hypertension; R06.02 Shortness of breath; I44.4 Left anterior fascicular block
CPT/HCPCS: 36415; 71045; 80053; 80307; 81001; 83735; 84145; 84484; 85025; 93005; 99283

== ENCOUNTER 2025-04-20 11:13 | Emergency (ER) | payer MEDICAID, SELFPAY ==
[2025-04-20 11:13] VITALS: BMI 39.1
--- NOTE | 2025-04-20 11:58 | EDNOTE_ITS ---
<Statement entered by Latha Santiago MD - 05/02/25 11:15> As co-signing physician, I was present and available for consult prn. I concur with the plan and care as documented by the midlevel provider. ED Back Injury Pain RME/HPI General Chief Complaint: Back Pain/Injury Stated Complaint: BACK INJURY 3 DAYS AGO Time Seen by Provider: 04/20/25 11:34 Source: patient Arrival date/time: 04/20/25 11:13 50-year-old male with a history of hypertension presents to the emergency room with a chief complaint of lumbar back pain x 3 days Mode of arrival: ambulatory Limitations: no limitations Related Data Home Medications ?Medication ?Instructions ?Recorded ?Confirmed carvedilol 3.125 mg tablet (Coreg) 3.125 mg PO BID 10/1001/19/24 albuterol sulfate 90 mcg/actuation 1 puff inhalation Q 4H PRN sob 01/23/22 01/19/24 aerosol inhaler buspirone 10 mg tablet 10 mg PO BID 01/23/22 losartan 100 1 tab PO QDAY 01/23/2201/18 mg-hydrochlorothiazide 25 mg tablet allopurinol 100 mg tablet 100 mg PO DAILY 09/11/2209/12 diclofenac sodium 1 % topical gel 1 g topical DAILY FL N Pain 09/11/22 01/19/24 Previous Rx's ?Medication ?Instructions ?Recorded ondansetron 8 mg disintegrating 8 mg PO Q8H PRN nausea and 12/27/23 tablet vomiting #20 tabs hydrocodone 5 mg-acetaminophen 325 1 tab PO BID PRN pa in #10 tabs 02/02/24 mg tablet metoclopramide HCl 10 mg tablet 10 mg PO Q6H PRN nause a and 02/02/24 (Reglan) vomiting #30 tabs albuterol sulfate 90 mcg/actuation 2 inh inhalation Q6 H PRN shortness 09/12/24 breath activated powder inhaler of breath or wheezing #1 ea nirmatrelvir 300 mg (150 mg See Rx Instructions PO .CO MPLEX 09/12/24 x2)-ritonavir 100 mg tablet,dose #30 tabs pack (Paxlovid) promethazine-DM 6.25 mg-15 mg/5 mL 5 ml PO Q6H PRN cou gh #118 mL 09/12/24 oral syrup clindamycin HCl 300 mg capsule 300 mg PO TID #21 caps 02/26/25 ibuprofen 800 mg tablet 800 mg PO Q8H PRN pain #30 t abs 02/26/25 cyclobenzaprine 10 mg tablet 10 mg PO TID #14 tabs 09/13 Allergies Allergy/AdvReac Type Severity Reaction Status Date / Time No Known Allergies Allergy Verified 03/31/25 04:14 Review of Systems Review of Systems Systems Reviewed: All systems reviewed, normal except as documented Constitutional Constitutional: Reports system reviewed and no additional complaints, except as documented, Denies fatigue, Denies fever(s), Denies headache(s) and Denies weakness Eyes Eyes: Reports system reviewed and no additional complaints, except as documented, Denies blurry vision and Denies change in vision ENT Ears, Nose, Mouth, and Throat: Reports system reviewed and no additional complaints, except as documented, Denies otalgia, Denies headache(s), Denies nasal congestion, Denies throat swelling and Denies vertigo Cardiovascular Cardiovascular: Reports system reviewed and no additional complaints, except as documented, Denies chest pain, Denies dyspnea and Denies dyspnea on exertion Respiratory Respiratory: Reports system reviewed and no additional complaints, except as documented, Denies chest congestion, Denies cough, Denies dyspnea, Denies dys pnea on exertion and Denies wheezing Gastrointestinal Gastrointestinal: Reports system reviewed and no additional complaints, except as documented, Denies abdominal pain, Denies cramping, Denies nausea and Denies vomiting Genitourinary Genitourinary: Reports system reviewed and no additional complaints, except as documented, Denies dysuria and Denies hematuria Musculoskeletal Musculoskeletal: Reports system reviewed and no additional complaints, except as documented and Reports back pain Integumentary/Breasts Skin/Breast: Reports system reviewed and no additional complaints, except as documented and Denies wounds Neurologic Neurologic: Reports system reviewed and no additional complaints, except as documented, Denies confusion, Denies headache(s), Denies lack of coordination, Denies vertigo and Denies weakness Psychiatric Psychiatric: Reports system reviewed and no additional complaints, except as documented, Denies anxiety, Denies confusion, Denies depression, Denies paranoia, Denies suicidal ideation and Denies tactile hallucinations Endocrine Endocrine: Reports system reviewed and no additional complaints, except as documented and Denies fatigue Hematologic/Lymphatic Hematologic/Lymphatic: Reports system reviewed and no additional complaints, except as documented and Denies lymphadenopathy Allergic/Immunologic Allergic/Immunologic: Reports system reviewed and no additional complaints, except as documented, Denies throat swelling, Denies urticaria and Denies wheezing Past Medical History Past Medical History NEUROLOGIC: Negative Neurological Disorders, Cerebrovascular Accident, Transient Ischemic Attacks (TIA), Dementia, Alzheimer's Disease, Parkinson's Disease, Brain Tumor, Meningitis, Seizures, Epilepsy, Multiple Sclerosis, Cerebral Palsy, Amyotrophic Lateral Sclerosis (ALS/Shirley Gehrig's), Guillain-[place] Syndrome, Spina Bifida, Paralysis, Peripheral Neuropathy, Paulino's Palsy, Subdural Hematoma, Migraine, Head Trauma, Spinal Cord Injury or Traumatic Brain Injury CARDIAC: Positive Cardiac Disorders (CHF), Congestive Heart Failure and Hypertension; Negative Myocardial Infarction, Cardiac Arrhythmia, Atrial Fibrillation, Angina, Heart Murmur, Coronary Artery Disease, Atherosclerotic Heart Disease, Peripheral Vascular Disease, Hypercholesterolemia, Aneurysm, Congenital Heart Disease, Valvular Heart Disease, Rheumatic Fever, Cardiomyopathy, Edema, Pericarditis, Cellulitis, Deep Vein Thrombosis, Hypotension or Varicose Veins RESPIRATORY: Negative Chronic Obstructive Pulmonary Disease (COPD), Asthma, Bronchitis, Emphysema, Pneumonia, Pulmonary Fibrosis, Cystic Fibrosis, Tuberculosis, Pulmonary Embolism, Pulmonary Edema or Sleep Apnea GASTROINTESTINAL: Positive Gastrointestinal Disorders, Diverticulitis, Gastroesophageal Reflux Disease and Obesity; Negative Hepatitis, Cirrhosis, Pancreatitis, Celiac Disease, Gall Bladder Disease, Gastrointestinal Bleed, Esophageal Varices, Bernal's Esophagus, Colitis, Ulcerative Colitis, Diverticulosis, Ulcer, Colorectal Cancer, Irritable Bowel, Crohn's Disease, Obstructive Bowel, Hiatal Hernia or Hemorrhoids GENITOURINARY: Negative Genitourinary Disorders, Renal Disease, Kidney Stones, Polycystic Kidney Disease, Neurogenic Bladder, Inguinal Hernia, Dialysis, Prostate Cancer or Benign Prostatic Hyperplasia REPRODUCTIVE: Negative Breast Cancer, Fibroids, Genital Herpes, Gonorrhea, Syphilis or Testicular Cancer MUSCULOSKELETAL: Positive Musculoskeletal Disorders and Gout; Negative Muscular Dystrophy, Myasthenia Gravis, Marfan's Syndrome, Bone Cancer, Arthritis, Rheumatoid Arthritis, Osteoporosis, Degenerative Disk Disease, Scoliosis, Carpal Tunnel Syndrome, Fibromyalgia, Fractures, Degenerative Joint Disease, Osteomyelitis or Poliovirus ENT: Negative Cataracts, Glaucoma, Blind, Retinal Detachment, Macular Degeneration, Ear Infection, Deafness, Head Trauma or Eye Prosthesis ENDOCRINE: Negative Endocrine Disorders, Diabetes Mellitus Type 1, Diabetes Mellitus Type 2, Hypoglycemia, Hollister's Syndrome, Mega's Disease, Hyperthyroidism, Hypothyroidism, Parathyroid Disease, Pituitary Disease, Systemic Lupus Erythematosus, Syndrome of Inappropriate Antidiuretic Hormone (SIADH), Adrenal Disease or Graves' Disease HEMATOLOGIC: Negative Blood Disorders, Anemia, Leukemia, Hemophilia, Thalassemia, Sickle Cell Disease or Clotting Problems PSYCHO/SOCIAL: Positive Recreational Drug Use, Depression and Anxiety; Negative Psychiatric Problems, Schizophrenia, Bipolar Disorder, Behavior Problems, Self-Mutilation, Attention Deficit Disorder, Attention Deficit Hyperactivity Disorder, Depression, Post Traumatic Stress Disorder or Eating Disorder OTHER HISTORY: Positive Hospitalization, Chicken Pox and Measles; Negative Autoimmune Disease, Down Syndrome, Autism, Developmental Delay, Shingles, Falls, Blood Transfusions, Blood Transfusion Reaction, Anesthesia Reactions, Organ Transplant, Chemotherapy, Radiation Therapy, Hyperbaric Therapy, MRSA, VRSA, Vancomycin-Resistant Enterococci, Human Immunodeficiency Virus (HIV), Mumps, Rubella (Sami Measles), Pertussis, Clostridium Difficile, Cancer, Breast Cancer, Cervical Cancer, Colorectal Cancer, Lung Cancer, Ovarian Cancer, Prostate Cancer or Testicular Cancer Family History FAMILY HISTORY: Positive Family Cardiac Disorders and Family Gastrointestinal Problems; Negative Family Psychiatric Problems, Family Respiratory Disorders, Family Cancer, Family Surgery or Family Anesthesia Reaction Surgical History SURGICAL: Positive Tonsillectomy; Negative Cardiac Surgery, Open Heart Surgery, Coronary Artery Bypass Graft, Valve Replacement, Vascular Surgery, Coronary Stent, Cardiac Catheterization, Pacemaker, Angiogram, Auto Implanted Cardiovert Defib, Carotid Endarterectomy, Endocrine Surgery, Thyroidectomy, Ear Surgery, Tympanostomy Tube, Eye Surgery, Nose Surgery, Oral Surgery, Adenoidectomy, Cochlear Implant, Corneal Transplant, Throat Surgery, Abdominal Surgery, Tracheostomy, Gastric Bypass Surgery, Gastrostomy, Bowel Surgery, Nephrectomy, Transurethral Resection, Joint Replacement, Amputation, Open Reduction Internal Fixation, Arthroscopy, Neurologic Surgery, Brain Shunt, Mastectomy, Lumpectomy, Hysterectomy, Tubal Ligation, Section, Vasectomy or Organ Transplant Social History SMOKING STATUS: Current some day smoker SECOND HAND EXPOSURE: No SUBSTANCE USE: marijuana and methamphetamine ED Exam General Limitations: Present no limitations General appearance: Present alert and in no apparent distress Head Head exam: Present atraumatic Eye Eye exam: Present normal appearance, PERRL and EOMI ENT ENT exam: Present normal exam, normal oropharynx and mucous membranes moist Neck Neck exam: Present normal inspection, full ROM and trachea midline Chest Chest inspection: Present normal inspection and symmetric chest wall rise Respiratory Respiratory exam: Present normal lung sounds bilaterally Cardiovascular Cardiovascular exam: Present regular rate, normal rhythm and normal heart sounds Abdominal Exam Abdominal exam: Present soft and normal bowel sounds Extremities Exam Extremities exam: Present normal inspection and full ROM Back Exam Back exam: Present normal inspection, full ROM, tenderness and vertebral tenderness; Absent CVA tenderness (R) or CVA tenderness (L) Neurological Exam Neurological exam: Present alert, oriented X3 and CN II-XII intact Psychiatric Psychiatric exam: Present normal affect and normal mood Skin Skin exam: Present warm, dry, intact and normal color Course Quality Measures none Orders Category Date Time Status Ketorolac Inj [Toradol Inj] Med 04/20/25 11:56 Discontinued 30 mg IM X1 ONE Vital Signs Vital signs: O2 saturation within normal limits Back Pain / Injury MDM Narrative MDM Narrative:: 50-year-old male with a history of hypertension presents to the emergency room w ith a chief complaint of lumbar back pain x 3 days Patient is hemodynamically stable and in no apparent distress Physical examination shows tenderness in palpation to the lumbar area of the patient's spine. The patient states he was lifting things at work and since then his pain started. Patient denies any saddle anesthesia. There is no numbness to the lower extremities. There is no loss of bowel or bladder function. Patient states he does not want an x-ray and just wants muscle relaxers and discharged Patient was discharged and educated to follow-up with primary care provider in the next 24 to 48 hours and return to the emergency room for any evidence of worsening signs or symptoms Patient data External records reviewed:: [facility] previous records Clinical information provided by:: patient Social determinants that could affect healthcare access:: none Patient has the following chronic illnesses:: No chronic illness How is presenting disease/condition affected by chronic disease/condition?: no chronic disease Evaluation data The following diagnostics were reviewed and interpreted by me:: lab results and radiology exam(s) Lab and/or radiology exams considered but not ordered:: Labs and radiology exams considered and ordered Interpretation Summary: N/A Medications / Prescriptions Medications or Prescriptions considered but not ordered:: Medication given Medication administrations:: Medication Administration History Discontinued Medications Ketorolac Tromethamine (Ketorolac Inj 60 Mg/2 Ml Vial) 30 mg IM X1 ONE Stop: 04/20/25 11:57 Last Admin: 04/20/25 12:11 Dose: 30 mg Documented By: OA Medication given Consultations Consultation(s) initiated? (list below): No Diagnosis Differential diagnosis back pain/injury: lumbar radiculopathy, strain of lumbar region and thoracic back pain Most likely diagnosis given after review of the tests above:: Strain of lumbar region Admission Indicated Admission indicated?: not indicated Admission Request Was there a request for admission?: No Disposition Plan Disposition Plan: Discharge Discharge Attestation Discharge Attestation: The patient and all family members were given an opportunity to ask questions and understood the discharge instructions. Discharge instructions specifically effects, indications for sooner follow up or return to the emergency department, and the expected course of current diagnosis. Patient condition: Stable Discharge Plan Plan Patient Disposition: HOME (Self Care) Discharge Disposition comment: Stable Prescriptions/Referrals Prescriptions/Med Rec: New cyclobenzaprine 10 mg tablet 10 mg PO TID Qty: 14 0RF No Action carvedilol [Coreg] 3.125 mg tablet 3.125 mg PO BID Rx Instructions: must administer with a meal/food losartan-hydrochlorothiazide 100-25 mg tablet 1 tab PO QDAY buspirone 10 mg tablet 10 mg PO BID albuterol sulfate 90 mcg/actuation HFA aerosol inhaler 1 puff INHALATION Q4H PRN (Reason: sob) allopurinol 100 mg tablet 100 mg PO DAILY diclofenac sodium 1 % gel 1 g TOPICAL DAILY PRN (Reason: Pain) ondansetron 8 mg tablet,disintegrating 8 mg PO Q8H PRN (Reason: nausea and vomiting) Qty: 20 0RF hydrocodone-acetaminophen 5-325 mg tablet 1 tab PO BID MDD 10 PRN (Reason: pain) Qty: 10 0RF metoclopramide HCl [Reglan] 10 mg tablet 10 mg PO Q6H PRN (Reason: nausea and vomiting) Qty: 30 0RF Paxlovid 300 mg (150 mg x 2)-100 mg tablets,dose pack See Rx Instructions .ROUTE .COMPLEX Qty: 30 0RF Rx Instructions: take TWO 150 mg tablets of nirmatrelvir with ONE 100 mg tablet of ritonavir twice daily for 5 days albuterol sulfate 90 mcg/actuation aerosol powdr breath activated 2 inh inhalation Q6H PRN (Reason: shortness of breath or wheezing) Qty: 1 0RF promethazine-DM 6.25-15 mg/5 mL syrup 5 ml PO Q6H PRN (Reason: cough) Qty: 118 0RF clindamycin HCl 300 mg capsule 300 mg PO TID Qty: 21 0RF ibuprofen 800 mg tablet 800 mg PO Q8H PRN (Reason: pain) Qty: 30 0RF Problem List Clinical Impression: Low back strain Patient/Caregiver Discharge Instructions Education Materials: ED Back Sprain/Strain Additional Instructions: Please follow-up with your primary care provider in the next 24 to 48 hours Medication was sent to your pharmacy please pick it up and take it as indicated For any evidence of worsening signs or symptoms return to the emergency room immediately Print Language: Chinese Stand Alone Forms: Lia Award Info., Patient Portal Info Letter PA/BODY TECHNICIAN/PAINTER Supervising Physician PA/GASTON Supervising Physician: Dr. SANTIAGO
[2025-04-20] MEDS: KETOROLAC INJ 60 MG/2 ML VIAL 30 MG IM (12:11)
== END 2025-04-20 12:30 | disposition home or self-care (01) ==
LOC: SERX 12:16
PROVIDERS: Emergency Provider Emergency Medicine; PCP Family Medicine
DX: S39.012A Strain of muscle, fascia and tendon of lower back, initial encounter (principal); X58.XXXA Exposure to other specified factors, initial encounter
CPT/HCPCS: 96372; 99282; J1885

== ENCOUNTER 2025-05-31 22:34 | Inpatient (IN) | payer MEDICAID, SELFPAY ==
[2025-05-31 22:35] VITALS: BMI 41.3
[2025-05-31 22:42] VITALS: BP 143/88; PULSE 80; RESP 20; TEMP 36.3; O2SAT 95
--- NOTE | 2025-05-31 22:48 | XR_ITS ---
Examination: CT abdomen and pelvis without contrast. Coronal 3-D reconstructions. Sagittal 2-D reconstructions. Date and time of exam: May 31, 2025, 11:54 p.m. INDICATIONS: Abdominal pain vomiting beginning 2 weeks ago, history of diverticulitis CTDI: vol (mGy): 14.7 DLP: (mGycm): 1026 Technique: Axial images of the abdomen have been obtained, 3 mm slice thickness Intravenous contrast material has not been administered. Low dose protocols were performed. One or more of the following dose reduction techniques were used; automated exposure control, adjustment of the mA and/or KV according to patient size, use of iterative reconstruction technique. Findings: No focal liver or splenic lesions. No gallstones. No pancreatic mass. No renal or ureteral calculi, no hydronephrosis Aorta normal size. 18 mm umbilical hernia containing incarcerated fat. Normal appendix Again noted marked abnormal thickening of the descending colon with some diverticula and inflammatory change No peridiverticular abscess Urinary bladder wall thickening No significant prostatomegaly IMPRESSION: Again noted abnormal thickening inflammatory changes descending colon most consistent with diverticulitis, underlying malignant neoplasm of the colon not excluded Cystitis pattern Umbilical hernia containing incarcerated fat
--- NOTE | 2025-05-31 22:49 | PD.EDRME ---
Rapid Medical Screening Exam RME Arrival date/time: 05/31/25 22:34 This is a case of 50-year-old male with no medical history came into the emergency room due to abdominal pain abdominal distention nausea vomiting constipation for 1 week worsening of the symptoms this patient decided to start consulted in the emergency room Chief Complaint: Abdominal Pain Time Seen by Provider: 05/31/25 22:48 Vital signs: Vital Signs Temperature 97.4 F 05/31/25 22:42 Pulse Rate 80 05/31/25 22:42 Respiratory Rate 20 05/31/25 22:42 Blood Pressure 143/88 H 05/31/25 22:42 Pulse Oximetry (%) 95 05/31/25 22:42 Oxygen Delivery Method Room Air 05/31/25 22:42
[2025-05-31 23:13] LABS: Basophils # (Auto) 0.1 Thou/mm3 (0.0-0.2); Basophils % (Auto) 1 % (0-2.5); Eosinophils # (Auto) 0.1 Thou/mm3 (0.0-0.5); Eosinophils % (Auto) 1 % (0-10); Hematocrit 37.3 % (41.0-53.0); Hemoglobin 13.4 g/dL (13.5-16.0); Immature Granulocytes Auto 0.02 Thou/mm3 (0.00-0.00); Lymphocytes # (Auto) 1.6 Thou/mm3 (1.0-4.8); Lymphocytes % (Auto) 23 % (10-50); Mean Corpuscular HGB Conc 35.9 g/dl (31.0-37.0); Mean Corpuscular Hemoglobin 32.7 pg (25.0-35.0); Mean Corpuscular Volume 91 fL (80-100); Monocytes # (Auto) 0.6 Thou/mm3 (0.0-0.8); Monocytes % (Auto) 9 % (0-12); Neutrophils # (Auto) 4.5 Thou/mm3 (1.8-7.7); Neutrophils % (Auto) 65 % (37-80); Nucleated Red Blood Cell # 0.00 Thou/mm3 (0.00-0.00); Nucleated Red Blood Cell % 0 /100 WBC (0); Platelet Count 191 Thou/mm3 (140-440); RDW Standard Deviation 40.3 fL (35.1-43.9); Red Blood Count 4.10 Miln/mm3 (4.50-5.90); White Blood Count 7.0 Thou/mm3 (3.8-10.6)
[2025-05-31 23:34] LABS: Alanine Aminotransferase 18 U/L (10-49); Albumin, Serum 4.6 gm/dL (3.5-5.0); Albumin/Globulin Ratio 1.4 (1.2-2.2); Alkaline Phosphatase 83 U/L (46-116); Anion Gap 13 (7-16); Aspartate Amino Transferase 36 U/L (0-34); BUN/Creatinine Ratio 11 Ratio (12-20); Bilirubin,Total 0.6 mg/dL (0.3-1.2); Blood Urea Nitrogen 18 mg/dL (9-23); Calcium 9.0 mg/dL (8.3-10.6); Calcium (Corrected) 9.0 mg/dL (8.5-10.1); Carbon Dioxide 26.3 mMol/L (20.0-31.0); Chloride 98 mMol/L (98-107); Creatinine (Component) 1.6 mg/dL (0.6-1.3); Estimated Creatinine Clearance 72.0 mL/min (>60); Globulin 3.4 gm/dL (2.3-3.5); Glucose 135 mg/dL (74-106); Lipase 73 U/L (12-53); Osmolality,Calculated 277 (275-295); Potassium 3.7 mMol/L (3.4-5.1); Sodium 137 mMol/L (136-145); Total Protein 8.0 gm/dL (5.7-8.2); eGFR 52 See Note
[2025-05-31 23:47] LABS: Collection Type, Urine Clean Catch
[2025-05-31 23:52] LABS: Bilirubin,Urine Negative (Negative); Blood,Urine Negative (Negative); Clarity,Urine Clear (Clear/Hazy); Color,Urine Lt-Yellow (Lt Yel-Yel); Glucose, Urine Negative (Negative); Ketones,Urine Negative (Negative); Leukocyte Esterase,Urine Negative (Negative); Nitrite,Urine Negative (Negative); PH,Urine 6.0 (5.0-7.0); Protein,Urine Trace (Neg - Trace); RBC,Urine 2 /hpf (0-3); Specific Gravity,Urine 1.020 (1.001-1.035); Squamous Epithelial Cell,Urine 1 /hpf (0-5); Urobilinogen,Urine Negative mg/dL (0.0-1.0); WBC,Urine 2 /hpf (0-5)
[2025-06-01] VITALS (10 sets, daily range): BP systolic 126–148; BP diastolic 78–101; PULSE 84–99; RESP 17–20; TEMP 36.1–36.8; O2SAT 96–99; BMI 42.9
--- NOTE | 2025-06-01 01:31 | PRELIM_ITS ---
CT scan of the abdomen and pelvis without intravenous contrast (axial sections with sagittal and coronal reformats); dated May 31, 2025 at 2353 hours Clinical History: Abdominal pain. Reference is made to the prior CT abdomen and pelvis report dated 09/25/2023. Prior images are not available for comparison at the time of interpretation. Findings: The lung bases are clear. The liver demonstrates nodular contour with hypoattenuation, likely related to chronic liver disease. No evidence of renal/ureteric calculus or hydroureteronephrosis. The gallbladder, pancreas, spleen, adrenals are unremarkable on this noncontrast study. No evidence of bowel dilatation. The cecum is low-lying in the pelvis. The appendix is within normal limits. There are multiple colonic diverticula. There is focal short segment wall thickening in the distal descending colon with pericolonic fat stranding and prominent pericolonic lymph nodes. The urinary bladder is not well distended and demonstrates apparent wall thickening. Mild prostatomegaly seen. There is no free air or loculated fluid collection. The abdominal aorta demonstrates atheromatous calcification without evidence of aneurysm. Minimal hypodensity /fat stranding is seen within the small umbilical hernia. The bones are osteopenic. Mild degenerative changes are identified in the spine. Impression: Findings suggestive of acute distal descending diverticulitis. However, the possibility of an underlying neoplasm cannot be entirely excluded. Recommend clinical correlation and follow-up. Possible cystitis. No evidence of free air or loculated fluid collection. Minimal hypodensity /fat stranding is seen within the small umbilical hernia. Recommend follow-up. Other findings as described above. Discussion Details: Results verbally communicated to : Dr Medellin at 01:08 AM 06/01/2025 Report Electronically Signed By: Luigi Duenas 06/01/2025 1:30:36 AM [EST]
--- NOTE | 2025-06-01 01:39 | EDNOTE_ITS ---
ED Abdominal Pain RME/HPI General Chief Complaint: Abdominal Pain Stated complaint: ABD PAIN, VOMITING X 2WKS Time seen by provider: 05/31/25 22:48 Arrival date/time: 05/31/25 22:34 RME / HPI RME / HPI narrative: 05/31/25 22:34 This is a case of 50-year-old male with no medical history came into the emergency room due to abdominal pain abdominal distention nausea vomiting constipation for 1 week worsening of the symptoms this patient decided to start consulted in the emergency room Dr. Pino?s Main ED Evaluation: 50yo male presenting with generalized abdominal pain and associated distention, N/V throughout the day. No reported diarrhea. Denies fever or chills. PMH includes diverticulitis, HTN, CHF, no DM or HLD. PSH unremarkable. Social history includes binge drinking, no illicit drug use. Related Data Home Medications ?Medication ?Instructions ?Recorded ?Confirmed carvedilol 3.125 mg tablet (Coreg) 3.125 mg PO BID 10/1001/19/24 albuterol sulfate 90 mcg/actuation 1 puff inhalation Q 4H PRN sob 01/23/22 01/19/24 aerosol inhaler buspirone 10 mg tablet 10 mg PO BID 01/23/22 losartan 100 1 tab PO QDAY 01/23/2201/18 mg-hydrochlorothiazide 25 mg tablet allopurinol 100 mg tablet 100 mg PO DAILY 09/11/2209/12 diclofenac sodium 1 % topical gel 1 g topical DAILY NE N Pain 09/11/22 01/19/24 Previous Rx's ?Medication ?Instructions ?Recorded ondansetron 8 mg disintegrating 8 mg PO Q8H PRN nausea and 12/27/23 tablet vomiting #20 tabs hydrocodone 5 mg-acetaminophen 325 1 tab PO BID PRN pa in #10 tabs 02/02/24 mg tablet metoclopramide HCl 10 mg tablet 10 mg PO Q6H PRN nause a and 02/02/24 (Reglan) vomiting #30 tabs albuterol sulfate 90 mcg/actuation 2 inh inhalation Q6 H PRN shortness 09/12/24 breath activated powder inhaler of breath or wheezing #1 ea nirmatrelvir 300 mg (150 mg See Rx Instructions PO .CO MPLEX 09/12/24 x2)-ritonavir 100 mg tablet,dose #30 tabs pack (Paxlovid) promethazine-DM 6.25 mg-15 mg/5 mL 5 ml PO Q6H PRN cou gh #118 mL 09/12/24 oral syrup clindamycin HCl 300 mg capsule 300 mg PO TID #21 caps 02/26/25 ibuprofen 800 mg tablet 800 mg PO Q8H PRN pain #30 t abs 02/26/25 cyclobenzaprine 10 mg tablet 10 mg PO TID #14 tabs 09/13 Allergies Allergy/AdvReac Type Severity Reaction Status Date / Time No Known Allergies Allergy Verified 03/31/25 04:14 Review of Systems Review of Systems Systems Reviewed: All systems reviewed, normal except as documented Past Medical History Past Medical History NEUROLOGIC: Negative Neurological Disorders, Cerebrovascular Accident, Transient Ischemic Attacks (TIA), Dementia, Alzheimer's Disease, Parkinson's Disease, Brain Tumor, Meningitis, Seizures, Epilepsy, Multiple Sclerosis, Cerebral Palsy, Amyotrophic Lateral Sclerosis (ALS/Shirley Gehrig's), Guillain-[place] Syndrome, Spina Bifida, Paralysis, Peripheral Neuropathy, Paulino's Palsy, Subdural Hematoma, Migraine, Head Trauma, Spinal Cord Injury or Traumatic Brain Injury CARDIAC: Positive Cardiac Disorders, Congestive Heart Failure and Hypertension; Negative Myocardial Infarction, Cardiac Arrhythmia, Atrial Fibrillation, Angina, Heart Murmur, Coronary Artery Disease, Atherosclerotic Heart Disease, Peripheral Vascular Disease, Hypercholesterolemia, Aneurysm, Congenital Heart Disease, Valvular Heart Disease, Rheumatic Fever, Cardiomyopathy, Edema, Pericarditis, Cellulitis, Deep Vein Thrombosis, Hypotension or Varicose Veins RESPIRATORY: Negative Chronic Obstructive Pulmonary Disease (COPD), Asthma, Bronchitis, Emphysema, Pneumonia, Pulmonary Fibrosis, Cystic Fibrosis, Tuberculosis, Pulmonary Embolism, Pulmonary Edema or Sleep Apnea GASTROINTESTINAL: Positive Gastrointestinal Disorders, Diverticulitis, Gastroesophageal Reflux Disease and Obesity; Negative Hepatitis, Cirrhosis, Pancreatitis, Celiac Disease, Gall Bladder Disease, Gastrointestinal Bleed, Esophageal Varices, Bernal's Esophagus, Colitis, Ulcerative Colitis, Diverticulosis, Ulcer, Colorectal Cancer, Irritable Bowel, Crohn's Disease, Obstructive Bowel, Hiatal Hernia or Hemorrhoids GENITOURINARY: Negative Genitourinary Disorders, Renal Disease, Kidney Stones, Polycystic Kidney Disease, Neurogenic Bladder, Inguinal Hernia, Dialysis, Prostate Cancer or Benign Prostatic Hyperplasia REPRODUCTIVE: Negative Breast Cancer, Fibroids, Genital Herpes, Gonorrhea, Syphilis or Testicular Cancer MUSCULOSKELETAL: Positive Musculoskeletal Disorders and Gout; Negative Muscular Dystrophy, Myasthenia Gravis, Marfan's Syndrome, Bone Cancer, Arthritis, Rheumatoid Arthritis, Osteoporosis, Degenerative Disk Disease, Scoliosis, Carpal Tunnel Syndrome, Fibromyalgia, Fractures, Degenerative Joint Disease, Osteomyelitis or Poliovirus ENT: Negative Cataracts, Glaucoma, Blind, Retinal Detachment, Macular Degeneration, Ear Infection, Deafness, Head Trauma or Eye Prosthesis ENDOCRINE: Negative Endocrine Disorders, Diabetes Mellitus Type 1, Diabetes Mellitus Type 2, Hypoglycemia, Kinzers's Syndrome, [place]'s Disease, Hyperthyroidism, Hypothyroidism, Parathyroid Disease, Pituitary Disease, Systemic Lupus Erythematosus, Syndrome of Inappropriate Antidiuretic Hormone (SIADH), Adrenal Disease or Graves' Disease HEMATOLOGIC: Negative Blood Disorders, Anemia, Leukemia, Hemophilia, Thalassemia, Sickle Cell Disease or Clotting Problems PSYCHO/SOCIAL: Positive Recreational Drug Use, Depression and Anxiety; Negative Psychiatric Problems, Schizophrenia, Bipolar Disorder, Behavior Problems, Self-Mutilation, Attention Deficit Disorder, Attention Deficit Hyperactivity Disorder, Depression, Post Traumatic Stress Disorder or Eating Disorder OTHER HISTORY: Positive Hospitalization, Chicken Pox and Measles; Negative Autoimmune Disease, Down Syndrome, Autism, Developmental Delay, Shingles, Falls, Blood Transfusions, Blood Transfusion Reaction, Anesthesia Reactions, Organ Transplant, Chemotherapy, Radiation Therapy, Hyperbaric Therapy, MRSA, VRSA, Vancomycin-Resistant Enterococci, Human Immunodeficiency Virus (HIV), Mumps, Rubella ([place] Measles), Pertussis, Clostridium Difficile, Cancer, Breast Cancer, Cervical Cancer, Colorectal Cancer, Lung Cancer, Ovarian Cancer, Prostate Cancer or Testicular Cancer Family History FAMILY HISTORY: Positive Family Cardiac Disorders and Family Gastrointestinal Problems; Negative Family Psychiatric Problems, Family Respiratory Disorders, Family Cancer, Family Surgery or Family Anesthesia Reaction Surgical History SURGICAL: Positive Tonsillectomy; Negative Cardiac Surgery, Open Heart Surgery, Coronary Artery Bypass Graft, Valve Replacement, Vascular Surgery, Coronary Stent, Cardiac Catheterization, Pacemaker, Angiogram, Auto Implanted Cardiovert Defib, Carotid Endarterectomy, Endocrine Surgery, Thyroidectomy, Ear Surgery, Tympanostomy Tube, Eye Surgery, Nose Surgery, Oral Surgery, Adenoidectomy, Cochlear Implant, Corneal Transplant, Throat Surgery, Abdominal Surgery, Tracheostomy, Gastric Bypass Surgery, Gastrostomy, Bowel Surgery, Nephrectomy, Transurethral Resection, Joint Replacement, Amputation, Open Reduction Internal Fixation, Arthroscopy, Neurologic Surgery, Brain Shunt, Mastectomy, Lumpectomy, Hysterectomy, Tubal Ligation, Section, Vasectomy or Organ Transplant Social History SMOKING STATUS: Current some day smoker SECOND HAND EXPOSURE: No SUBSTANCE USE: marijuana and methamphetamine ED Exam Narrative Physical exam: GENERAL APPEARANCE: alert and oriented x 4, nontoxic, complains of generalized abdominal pain, well-developed, well-nourished, no acute distress VITALS: All vitals were reviewed and the pulse ox is 95% on room air, which is normal according to my interpretation. HEENT: Normocephalic, atraumatic; pupils equal, round, reactive to light; EOMI; mucous membranes pink, moist; oropharynx clear NECK: Supple LUNGS: CTABL; no wheezes, no rales, no rhonchi HEART: Regular rate, regular rhythm; normal S1, S2; no murmurs ABDOMEN: mildly distended; soft, generalized tenderness, but more at the RLQ; slight guarding BACK: no CVA tenderness EXTREMITIES: atraumatic; no edema NEUROLOGIC: awake; alert and oriented x4; cranial nerves II-XII grossly intact; no focal sensory or motor deficits PSYCHIATRIC: appropriate mood and affect SKIN: warm, dry, normal color; no rashes Course Quality Measures none Orders Category Date Time Status CT abdomen pelvis wo con Stat Exams 05/31/25 22:48 Taken CBC Stat Lab 05/31/25 22:57 Completed Comprehensive Metabolic Panel Stat Lab 05/31/25 22:57 Completed Lipase Stat Lab 05/31/25 22:57 Completed Urinalysis Stat Lab 05/31/25 23:34 Completed Morphine* Inj Med 06/01/25 01:39 Discontinued 4 mg IVP X1 ONE Prochlorperazine Inj [Compazine Inj] Med 06/01/25 01:38 Discontinued 5 mg IV X1 ONE Sodium Chloride 0.9% 1000 ml [Ns] 1,000 ml Med 06/01/25 01:38 Discontinued IV 999 mls/hr Sodium Chloride 0.9% 500 ml [Ns] 500 ml Med 06/01/25 01:55 Active IV 500 mls/hr cefTRIAXone/D5w 1gm IV premix [Rocephin/D5w 1gm IV Med 06/01/25 01:39 Discontinued premix] 1 gm in 50 ml IV X1 metroNIDAZOLE/NS 500 MG IVPB [Flagyl 500 mg IV] Med 06/01/25 01:39 Active 500 mg in 100 ml IV X1 Vital Signs Vital signs: Vital Signs Temperature 97.4 F 05/31/25 22:42 Pulse Rate 80 05/31/25 22:42 Respiratory Rate 20 05/31/25 22:42 Blood Pressure 143/88 H 05/31/25 22:42 Pulse Oximetry (%) 95 05/31/25 22:42 Oxygen Delivery Method Room Air 05/31/25 22:42 Abdominal Pain MDM MDM Narrative MDM Narrative:: Scribe Attestation: 06/01/25 - Faby Lara am scribing for and in the presence of Dr. Pino. 50yo male presenting with generalized abdominal pain and associated distention, N/V throughout the day. No reported diarrhea. Please see PE findings. Lab markers demonstrated WBC 7, stable mild anemia, no thrombocytopenia, unremarkable chemistries. UA without infection. IV established. Received IV fluids, low dose narcotic analgesics and antiemetics with [id number] relief. CT abdomen pelvis demonstrated evidence of acute diverticultis. Patient received dual IV antibiotics and remained hemodynamically stable without signs of sepsis. Will contact hospitalist for consideration of admission. Patient data External records reviewed:: [facility] previous records (Per chart review, patient was seen here on 04/20/25 for low back strain.) Clinical information provided by:: patient Social determinants that could affect healthcare access:: none Patient has the following chronic illnesses:: CHF, HTN How is presenting disease/condition affected by chronic disease/condition?: uneffected by Evaluation data The following diagnostics were reviewed and interpreted by me:: lab results and radiology exam(s) Lab and/or radiology exams considered but not ordered:: none Interpretation Summary: Teler[place] Preliminary Report Draft Patient: JOSE HOOD. Record#: [id number] Birthdate: 1975 Age/Sex: 50 / M Location: [facility] Attending Dr: Ordering Physician: Date of Service: Procedure(s): Accession Number(s): cc: ~ CT scan of the abdomen and pelvis without intravenous contrast (axial sections with sagittal and coronal reformats); dated May 31, 2025 at 2353 hours Clinical History: Abdominal pain. Reference is made to the prior CT abdomen and pelvis report dated 09/25/2023. Prior images are not available for comparison at the time of interpretation. Findings: The lung bases are clear. The liver demonstrates nodular contour with hypoattenuation, likely related to chronic liver disease. No evidence of renal/ureteric calculus or hydroureteronephrosis. The gallbladder, pancreas, spleen, adrenals are unremarkable on this noncontrast study. No evidence of bowel dilatation. The cecum is low-lying in the pelvis. The appendix is within normal limits. There are multiple colonic diverticula. There is focal short segment wall thickening in the distal descending colon with pericolonic fat stranding and prominent pericolonic lymph nodes. The urinary bladder is not well distended and demonstrates apparent wall thickening. Mild prostatomegaly seen. There is no free air or loculated fluid collection. The abdominal aorta demonstrates atheromatous calcification without evidence of aneurysm. Minimal hypodensity /fat stranding is seen within the small umbilical hernia. The bones are osteopenic. Mild degenerative changes are identified in the spine. Impression: Findings suggestive of acute distal descending diverticulitis. However, the possibility of an underlying neoplasm cannot be entirely excluded. Recommend clinical correlation and follow-up. Possible cystitis. No evidence of free air or loculated fluid collection. Minimal hypodensity /fat stranding is seen within the small umbilical hernia. Recommend follow-up. Other findings as described above. Discussion Details: Results verbally communicated to : Dr Medellin at 01:08 AM 06/01/2025 Report Electronically Signed By: Luigi Duenas 06/01/2025 1:30:36 AM Medications / Prescriptions Medications or Prescriptions considered but not ordered:: none Medication administrations:: Medication Administration History Metronidazole (Flagyl 500 Mg Iv) 500 mg in 100 mls @ 100 mls/hr IV X1 ONE Stop: 06/01/25 02:38 Sodium Chloride (Ns) 500 mls @ 500 mls/hr IV .Q1H ONE Stop: 06/01/25 02:54 Discontinued Medications Sodium Chloride (Ns) 1,000 mls @ 999 mls/hr IV .Q1H1M ONE Stop: 06/01/25 02:38 Ceftriaxone Sodium/Dextrose (Rocephin/D5w 1gm Iv Premix) 1 gm in 50 mls @ 100 mls/hr IV X1 ONE Stop: 06/01/25 02:08 Morphine Sulfate (Morphine Sulf Inj 4 Mg/Ml Vial) 4 mg IVP X1 ONE Stop: 06/01/25 01:40 Prochlorperazine Edisylate (Prochlorperazine Inj 5 Mg/Ml Vial 2 Ml) 5 mg IV X1 ONE; Protocol Stop: 06/01/25 01:39 see above Consultations Consultation(s) initiated? (list below): Yes Consultation #1 (Physician, Specialty, Details): Discussed case with the resident physician, attending Dr. Mae from Hospitalist service regarding admission. Discussed patients ED course, exam findings, labs, and radiology results. The Hospitalist agrees to accept the patient for admission. Time: 02:09 Diagnosis Differential diagnosis abdominal pain: constipation, diverticulitis, gastroenteritis, pancreatitis and small bowel obstruction Most likely diagnosis given after review of the tests above:: acute diverticulitis Admission Indicated Admission indicated?: indicated Admission Request Was there a request for admission?: Yes Admission Attestation Admission request attestation: Discussed case with [] from Hospitalist service regarding admission. Discussed patients ED course, exam findings, labs, and radiology results. The Hospitalist [agrees,declines] to accept the patient for admission. Disposition Plan Disposition Plan: Admit Discharge Plan Plan Patient Disposition: Admit Acute Care w/in Hospital Prescriptions/Referrals Prescriptions/Med Rec: No Action carvedilol [Coreg] 3.125 mg tablet 3.125 mg PO BID Rx Instructions: must administer with a meal/food losartan-hydrochlorothiazide 100-25 mg tablet 1 tab PO QDAY buspirone 10 mg tablet 10 mg PO BID albuterol sulfate 90 mcg/actuation HFA aerosol inhaler 1 puff INHALATION Q4H PRN (Reason: sob) allopurinol 100 mg tablet 100 mg PO DAILY diclofenac sodium 1 % gel 1 g TOPICAL DAILY PRN (Reason: Pain) ondansetron 8 mg tablet,disintegrating 8 mg PO Q8H PRN (Reason: nausea and vomiting) Qty: 20 0RF hydrocodone-acetaminophen 5-325 mg tablet 1 tab PO BID MDD 10 PRN (Reason: pain) Qty: 10 0RF metoclopramide HCl [Reglan] 10 mg tablet 10 mg PO Q6H PRN (Reason: nausea and vomiting) Qty: 30 0RF Paxlovid 300 mg (150 mg x 2)-100 mg tablets,dose pack See Rx Instructions .ROUTE .COMPLEX Qty: 30 0RF Rx Instructions: take TWO 150 mg tablets of nirmatrelvir with ONE 100 mg tablet of ritonavir twice daily for 5 days albuterol sulfate 90 mcg/actuation aerosol powdr breath activated 2 inh inhalation Q6H PRN (Reason: shortness of breath or wheezing) Qty: 1 0RF promethazine-DM 6.25-15 mg/5 mL syrup 5 ml PO Q6H PRN (Reason: cough) Qty: 118 0RF cyclobenzaprine 10 mg tablet 10 mg PO TID Qty: 14 0RF clindamycin HCl 300 mg capsule 300 mg PO TID Qty: 21 0RF ibuprofen 800 mg tablet 800 mg PO Q8H PRN (Reason: pain) Qty: 30 0RF Referrals: Nicholas Fernandez MD [Primary Care Provider, Family Practice] - In 1 week Problem List Clinical Impression: Acute diverticulitis Patient/Caregiver Discharge Instructions Print Language: Tongan Stand Alone Forms: Lia Award Info., Patient Portal Info Letter
[2025-06-01] MEDS: MORPHINE SULF INJ 4 MG/ML VIAL IVP (02:13)
[2025-06-01] MEDS: SODIUM CHLORIDE 0.9% 500 ML 500 ML IV (02:13)
[2025-06-01] MEDS: cefTRIAXone/D5w 1gm IV premix 1 GM/50 ML BAG IV (02:14)
--- NOTE | 2025-06-01 03:18 | ESHP_ITS ---
Documentation for date of: 06/01/25 HPI History of Present Illness Chief complaint: Abdominal Pain. History of present illness: This is a 50-year-old male with past medical history of congestive heart failure, hypertension, gout presented to the ED with complaints of left lower quadrant abdominal pain. He has been experiencing dull abdominal pain in the left lower quadrant region since last 2 weeks associated with diarrhea multiple times a day (nearly 10 times). He describes pain as dull, nonradiating 5 out of 10 on a pain scale on and off in nature. He describes diarrhea as nonbloody and stools are not well-formed just mucousy. His abdominal pain got worsened since 05/31 and reached 10 out of 10 on a pain scale associated with abdominal distention with a lot of bloating which prompted him for ED visit. He describes he is feeling nauseous since 2 weeks but had vomitings like 3 times on 05/31 endorses urinary frequency but denies burning pee, any melena or hematemesis. He endorses occasional cough but denies any chest pain, chest tightness, palpitation, shortness of breath or any fever. At baseline he is constipated on and off and does consumes a lot of red meat. Colonoscopy 2 to 3 years back shown a benign mass in colon. ED visit vitals BP 148/91, pulse rate 94, respi rate 20, temperature 98.3 ?F, saturating 98% on room air. Pertinent labs are hemoglobin 13.4, hematocrit 37.3, creatinine 1.6, AST 36, lipase 73. Imaging findings are CT abdomen showing multiple colonic diverticula and there is a short segment of descending colon thickening and pericolonic fat stranding suggestive of acute diverticulitis and there are pericolonic lymph nodes as well ED treatment given: Morphine 4 mg, 500 mL NS, 1 g ceftriaxone, 500 mg metronidazole. Past medical history: History of congestive heart failure, hypertension, gout?takes medication PSHx: Noncontributory Social history: Drinks 12 tall beers along with vodka every day, smokes vape and occasional marijuana. Family history: History of Alzheimer's in her mother. Review of Systems Review of Systems Systems Reviewed: All systems reviewed, normal except as documented Exam Vital Signs Temp Pulse Resp BP Pulse Ox O2 Del Method 98.3 F 98 20 148/91 H 98 Room Air 06/01/25 03:05 06/01/25 03:05 06/01/25 03:05 06/01/25 03:05 06/01/25 03:05 06/01/25 03:05 Narrative Exam GENERAL: NAD, AAOx3 HEENT: Moist mucosa. Eyes open, symmetrical, & clear CARDIO: Regular rhythm Noted. No Murmurs. PULM: No noted coughing/dyspnea CTA B/L, no R/W/R GI: Abdomen soft, distended, Tenderness on palpation of LLQ. SKIN/MSK/EXT: No wounds/rashes/amputations, no Edema. Pedal pulses present B/L NEURO: AAOx3, no focal neuro deficits, able to move all 4 extremities Results: Labs 05/31/25 22:57 05/31/25 22:57 Labs: Short CBC 05/31/25 Range/Units 22:57 WBC 7.0 (3.8-10.6) Thou/mm3 Hgb 13.4 L (13.5-16.0) g/dL Hct 37.3 L (41.0-53.0) % Plt Count 191 (140-440) Thou/mm3 BMP 05/31/25 22:57 Sodium 137 Potassium 3.7 Chloride 98 Carbon Dioxide 26.3 BUN 18 Creatinine 1.6 H Glucose 135 H Calcium 9.0 Liver Function 05/31/25 Range/Units 22:57 Total Bilirubin 0.6 (0.3-1.2) mg/dL AST 36 H (0-34) U/L ALT 18 (10-49) U/L Alkaline Phosphatase 83 (46-116) U/L Albumin 4.6 (3.5-5.0) gm/dL Urine 05/31/25 Range/Units 23:34 Urine Color Lt-Yellow (Lt Yel-Yel) Urine Clarity Clear (Clear/Hazy) Urine pH 6.0 (5.0-7.0) Ur Specific [place] 1.020 (1.001-1.035) Urine Protein Trace (Neg - Trace) Urine Glucose (UA) Negative (Negative) Quality Measures Quality Measures none Medications Home Medications and Allergies Home Medications ?Medication ?Instructions ?Recorded ?Confirmed ?Type carvedilol 3.125 mg tablet (Coreg) 3.125 mg PO BID 10/1001/19/24 History albuterol sulfate 90 mcg/actuation 1 puff inhalation Q 4H PRN sob 01/23/22 01/19/24 History aerosol inhaler buspirone 10 mg tablet 10 mg PO BID 01/23/22 History losartan 100 1 tab PO QDAY 01/23/2201/18 History mg-hydrochlorothiazide 25 mg tablet allopurinol 100 mg tablet 100 mg PO DAILY 09/11/2209/12 History diclofenac sodium 1 % topical gel 1 g topical DAILY [place] N Pain 09/11/22 01/19/24 History Allergies Allergy/AdvReac Type Severity Reaction Status Date / Time No Known Allergies Allergy Verified 03/31/25 04:14 Visit Medications Acetaminophen (Acetaminophen 325 Mg Tablet) 650 mg PO Q6H PRN PRN Reason: Fever >100.4 Stop: 07/01/25 02:53 Acetaminophen (Acetaminophen 325 Mg Tablet) 650 mg PO Q6H PRN PRN Reason: PAIN SCALE 1-3 (mild Stop: 07/01/25 02:53 Heparin Sodium (Porcine) (Heparin Sod Inj 5000 Unit/Ml Vial) 5,000 unit SC BID CONG Stop: 06/15/25 08:59 Ciprofloxacin/Dextrose (Cipro Ivpb) 400 mg in 200 mls @ 200 mls/hr IV Q12HR CONG Stop: 06/08/25 03:05 Metronidazole (Flagyl 500 Mg Iv) 500 mg in 100 mls @ 200 mls/hr IV Q8HR CONG Stop: 06/08/25 03:06 Lactated Ringer's (Lactated Ringers) 1,000 mls @ 75 mls/hr IV .[id number] CONG Stop: 06/01/25 16:27 Ciprofloxacin/Dextrose (Cipro Ivpb) 400 mg in 200 mls @ 200 mls/hr IV X1 ONE Stop: 06/01/25 04:29 Morphine Sulfate (Morphine Sulf Inj 4 Mg/Ml Vial) 2 mg IVP Q6HR PRN PRN Reason: PAIN SCALE 4-10(Mod-Sev Stop: 06/06/25 02:53 Discontinued Medications Sodium Chloride (Ns) 1,000 mls @ 999 mls/hr IV .Q1H1M ONE Stop: 06/01/25 02:38 Last Admin: 06/01/25 02:12 Dose: Not Given Metronidazole (Flagyl 500 Mg Iv) 500 mg in 100 mls @ 100 mls/hr IV X1 ONE Stop: 06/01/25 02:38 Ceftriaxone Sodium/Dextrose (Rocephin/D5w 1gm Iv Premix) 1 gm in 50 mls @ 100 mls/hr IV X1 ONE Stop: 06/01/25 02:08 Last Infusion: 06/01/25 03:00 Dose: Infused Sodium Chloride (Ns) 500 mls @ 500 mls/hr IV .Q1H ONE Stop: 06/01/25 02:54 Last Admin: 06/01/25 02:13 Dose: 500 mls/hr Morphine Sulfate (Morphine Sulf Inj 4 Mg/Ml Vial) 4 mg IVP X1 ONE Stop: 06/01/25 01:40 Last Admin: 06/01/25 02:13 Dose: 4 mg Prochlorperazine Edisylate (Prochlorperazine Inj 5 Mg/Ml Vial 2 Ml) 5 mg IV X1 ONE; Protocol Stop: 06/01/25 01:39 Last Admin: 06/01/25 02:12 Dose: Not Given Assessment & Plan Plan This is a 50-year-old male with past medical history of congestive heart failure, hypertension, gout presented to the ED with complaints of left lower quadrant abdominal pain worsening since 1 day associated with diarrrhea.He was admitted for Acute Diverticulitis # Acute diverticulitis # ? Colonic Mass Dull LLQ pain worsening since 05/31 associated with abdominal distention, bloating and multiple episodes of diarrhea. History of constipation, increased red meat usage, history of benign colonic mass in the past Imaging findings CT abdomen shows multiple colonic diverticula ,pericolonic fat stranding suggestive of acute diverticulitis and there are pericolonic lymph nodes as well. Given morphine, ceftriaxone, Metro in ED. ?Starting on IV ciprofloxacin 400 mg every 12, MetroGyl 500 mg every 8hrs. ?Starting Ringer lactate at rate 75 cc/hr. ?Consulted safety grooving machine operator Dr. Mccabe. ?Starting on clear liquid diet. # Congestive heart failure. HFpEF. # Not in Exacerbation Echocardiogram on 01/10 ejection fraction is 50 to 55% ?Continue home medication after reconciliation. # Hypertension Continue home medication. # Alcohol disorder. History of 12 tall beers and vodka?binge drinking. Consider [facility] protocol if signs of alcohol withdrawal develops. Code status: Full DVT prophylaxis: Heparin Diet: Clear liquid consistent Peters: None Lines: PIV Supplemental O2: none Disposition: Med Tele I discussed this case with my senior Dr. Kirkland and my attending Dr. Mae. Paul Cohen MD-PGY1 Attending Provider Attestation/Addendum I, Julianne Mae, , attest that I was physically present for the thompson portions of the service and evaluated the patient with the resident and I reviewed and discussed the case with the resident and agree with the resident's findings and plans of care as documented above Patient is a 50-year-old male with past medical history of CHF, diverticulosis polysubstance use, hypertension, gout, diverticulitis who presented to the ED due to worsening distention of his abdomen and constipation for the past 2 weeks. He states that he was at work tonight during which he ate and noticed that his abdomen to be more distended with bloating. He was able to pass gas in the bathroom, but unable to have a bowel movement. He states that he is having difficulty with his bowel movements for the past 2 weeks and only able to have intermittent episodes of diarrhea and passing mucus. He states that the pain was worse in the left lower quadrant that radiated to the right lower quadrant at times. Due to distention and discomfort, patient became very nauseous and had 1 episode of vomiting prompting him to come to the ED. Patient denies any change in appetite or weight loss. He also denies any personal family history of cancer. A CT abdomen pelvis was done in the ED showing acute distal descending diverticulitis with possible underlying neoplasm, as well as possible cystitis. He is noted to have prominent pericolonic lymph nodes with pericolonic fat stranding in the distal descending colon. Patient had undergone a colonoscopy about 1 year ago as he had similar findings on CT, but no mass was visualized during colonoscopy. He was found to have very inflamed and edematous mucosa consistent with acute infectious process versus inflammatory process. Pathology report showed colonic mucosa with mild edema and small reactive lymphoid aggregate. Decision was made to admit patient to [facility] [place] for further workup and medical management of acute diverticulitis with possible obstructive symptoms and concern for possible neoplasm. Will consult GI for further recommendations. Will start patient on IV antibiotics. Continue with IV fluid hydration. Monitor fluid status closely given patient's history of HFpEF. Will start him on clear liquid diet at this time. Patient denies any melena, hematemesis or hematochezia, fevers or chills.
[2025-06-01] MEDS: metroNIDAZOLE/NS 500 MG IVPB 500 MG/100 ML BAG 100 MG IV (03:28)
[2025-06-01] MEDS: RINGERS LACTATED 1000 ML 1,000 ML 75 ML IV (03:29)
[2025-06-01 04:56] LABS: Basophils # (Auto) 0.1 Thou/mm3 (0.0-0.2); Basophils % (Auto) 1 % (0-2.5); Eosinophils # (Auto) 0.1 Thou/mm3 (0.0-0.5); Eosinophils % (Auto) 1 % (0-10); Hematocrit 35.4 % (41.0-53.0); Hemoglobin 12.4 g/dL (13.5-16.0); Immature Granulocytes Auto 0.02 Thou/mm3 (0.00-0.00); Lymphocytes # (Auto) 2.1 Thou/mm3 (1.0-4.8); Lymphocytes % (Auto) 29 % (10-50); Mean Corpuscular HGB Conc 35.0 g/dl (31.0-37.0); Mean Corpuscular Hemoglobin 32.4 pg (25.0-35.0); Mean Corpuscular Volume 92 fL (80-100); Monocytes # (Auto) 0.6 Thou/mm3 (0.0-0.8); Monocytes % (Auto) 8 % (0-12); Neutrophils # (Auto) 4.4 Thou/mm3 (1.8-7.7); Neutrophils % (Auto) 60 % (37-80); Nucleated Red Blood Cell # 0.00 Thou/mm3 (0.00-0.00); Nucleated Red Blood Cell % 0 /100 WBC (0); Platelet Count 164 Thou/mm3 (140-440); RDW Standard Deviation 42.3 fL (35.1-43.9); Red Blood Count 3.83 Miln/mm3 (4.50-5.90); White Blood Count 7.2 Thou/mm3 (3.8-10.6)
[2025-06-01] MEDS: CIPROFLOXACIN/D5w 400 MG IVPB 400 MG/200 ML BAG 200 MG IV ×2 (05:20→21:19)
[2025-06-01 06:05] LABS: Alanine Aminotransferase 21 U/L (10-49); Albumin, Serum 4.0 gm/dL (3.5-5.0); Albumin/Globulin Ratio 1.4 (1.2-2.2); Alkaline Phosphatase 69 U/L (46-116); Anion Gap 10 (7-16); Aspartate Amino Transferase 26 U/L (0-34); BUN/Creatinine Ratio 14 Ratio (12-20); Bilirubin,Total 0.8 mg/dL (0.3-1.2); Blood Urea Nitrogen 18 mg/dL (9-23); Calcium 8.3 mg/dL (8.3-10.6); Calcium (Corrected) 8.3 mg/dL (8.5-10.1); Carbon Dioxide 27.2 mMol/L (20.0-31.0); Cardiac Risk Estimate 3.5 RATIO (4.0-6.7); Chloride 102 mMol/L (98-107); Cholesterol 166 mg/dL (132-200); Creatinine (Component) 1.3 mg/dL (0.6-1.3); Estimated Creatinine Clearance 90.5 mL/min (>60); Globulin 2.9 gm/dL (2.3-3.5); Glucose 116 mg/dL (74-106); HDL Cholesterol 47 mg/dL (40-60); LDL Cholesterol,Calculated 67 mg/dL (0-130); Osmolality,Calculated 280 (275-295); Potassium 4.0 mMol/L (3.4-5.1); Sodium 139 mMol/L (136-145); Thyroid Stimulating Hormone 0.53 uIU/mL (0.55-4.78); Total Protein 6.9 gm/dL (5.7-8.2); Triglycerides 260 mg/dL (30-150); eGFR > 60 See Note
[2025-06-01] MEDS: HEPARIN SOD INJ 5000 UNIT/ML VIAL SC ×2 (09:02→21:34)
[2025-06-01] MEDS: INFLUENZA VIRUS QUADRIVALENT 0.5 ML SYRINGE IMi (09:02)
[2025-06-01] MEDS: MORPHINE SULF INJ 4 MG/ML VIAL 2 MG IVP (11:30)
[2025-06-01] MEDS: THIAMINE 100 MG TABLET PO (11:30)
[2025-06-01] MEDS: FOLIC ACID 1 MG TABLET PO (11:30)
--- NOTE | 2025-06-01 11:56 | PD.RESPRO ---
Documentation for date of: 06/01/25 Subjective Subjective Interval history: No Overnight events. Labs reviewed and patient examined at the bedside. Patient currently on IV Ciprofloxacin 400 mg q12hr and IV metronidazole 500 mg q8hr, and LR IVF 75 mL/hr. Currently awaiting GI recommendations. Based on patient's extensive history of alcohol abuse, folic acid and thiamine has been added. Patient still complains of dull and constant left lower quadrant pain, however, significantly improved compared to when he was admitted to the hospital. Denies chest pain, palpation, SOB, N/V, fevers or chills. Exam Vital Signs Temp Pulse Resp BP Pulse Ox O2 Del Method 97.7 F 92 18 126/78 98 Room Air 06/01/25 08:00 06/01/25 08:00 06/01/25 08:00 06/01/25 08:00 06/01/25 08:00 06/01/25 08:00 Narrative Exam General: No acute distress, well nourished, AAO x3 Eye: PERRL, EOMI, normal conjunctiva, no scleral icterus HENT: Normocephalic, atraumatic, hearing intact to conversation at normal volume, moist oral mucosa Neck: Supple, non-tender, no JVD, no lymphadenopathy Lungs: Non-labored respirations, symmetric chest rise, Clear to auscultate bilaterally, No wheezing, rhonchi, crackles Heart: Peripheral pulses intact bilaterally, Regular Rate and Rhythm. Abdomen: No palpable masses, dull and constant LLQ pain. Slight distention. Musculoskeletal: Normal range of motion and strength, No cyanosis or edema, No visible joint swelling Skin: Skin is warm, dry, no rashes or lesions. Psychiatric: Cooperative, appropriate mood and affect, Awake and alert, not agitated Neuro: Cranial nerves II-XII grossly intact. Strength 5/5 throughout. Sensations intact to light touch. Objective Labs 06/02/25 04:29 06/02/25 04:29 Labs: Laboratory Results - last 24 hr 05/31/25 05/31/25 06/01/25 22:57 23:34 04:44 WBC 7.0 7.2 RBC 4.10 L 3.83 L Hgb 13.4 L 12.4 L Hct 37.3 L 35.4 L MCV 91 92 MCH 32.7 32.4 MCHC 35.9 35.0 RDW Std Deviation 40.3 42.3 Plt Count 191 164 Neut % (Auto) 65 60 Lymph % (Auto) 23 29 [place] % (Auto) 9 8 Eos % (Auto) 1 1 Baso % (Auto) 1 1 Neut # (Auto) 4.5 4.4 Lymph # (Auto) 1.6 2.1 [place] # (Auto) 0.6 0.6 Eos # (Auto) 0.1 0.1 Baso # (Auto) 0.1 0.1 Immature Gran # (Auto) 0.02 H 0.02 H Absolute Nucleated RBC 0.00 0.00 Immature Gran % 0 0 Nucleated RBC % 0 0 Sodium 137 139 Potassium 3.7 4.0 Chloride 98 102 Carbon Dioxide 26.3 27.2 Anion Gap 13 10 BUN 18 18 Creatinine 1.6 H 1.3 Estim Creat Clear Calc 72.0 90.5 eGFR 52 L > 60 BUN/Creatinine Ratio 11 L 14 Glucose 135 H 116 H Calculated Osmolality 277 280 Calcium 9.0 8.3 Corrected Calcium 9.0 8.3 L Total Bilirubin 0.6 0.8 AST 36 H 26 ALT 18 21 Alkaline Phosphatase 83 69 Total Protein 8.0 6.9 Albumin 4.6 4.0 D Globulin 3.4 2.9 Albumin/Globulin Ratio 1.4 1.4 Triglycerides 260 H Cholesterol 166 LDL Cholesterol, Calc 67 HDL Cholesterol 47 Cholesterol/HDL Ratio 3.5 L Lipase 73 H TSH 0.53 L Ur Collection Type Clean Catch Urine Color Lt-Yellow Urine Clarity Clear Urine pH 6.0 Ur Specific [place] 1.020 Urine Protein Trace Urine Glucose (UA) Negative Urine Ketones Negative Urine Blood Negative Urine Nitrite Negative Urine Bilirubin Negative Urine Urobilinogen (Auto) Negative Ur Leukocyte Esterase Negative Urine RBC 2 Urine WBC 2 Ur Squamous Epith Cells 1 Urine Bacteria None Quality Measures Quality Measures none Assessment & Plan Assessment Current Active Medications: Generic Name Dose Route Start Last Admin Trade Name Freq PRN Reason Stop Dose Admin Acetaminophen 650 mg 06/01/25 02:54 Acetaminophen 325 Mg Tablet PO 07/01/25 02:53 Q6H PRN Fever >100.4 Acetaminophen 650 mg 06/01/25 02:54 Acetaminophen 325 Mg Tablet PO 07/01/25 02:53 Q6H PRN PAIN SCALE 1-3 (mild Carvedilol 3.125 mg 06/01/25 17:30 Carvedilol 3.125 Mg Tablet PO 07/01/25 17:29 BIDWM CONG Folic Acid 1 mg 06/01/25 11:15 06/01/25 11:30 Folic Acid 1 Mg Tablet PO 07/01/25 11:14 1 mg QDAY CONG Administration Gabapentin 600 mg 06/02/25 09:00 Gabapentin 300 Mg Capsule PO 07/02/25 08:59 QDAY CONG Heparin Sodium (Porcine) 5,000 unit 06/01/25 09:00 06/01/25 09:02 Heparin Sod Inj 5000 Unit/Ml Vial SC 06/15/25 08:59 5,000 unit BID CONG Administration Hydrochlorothiazide 25 mg 06/02/25 09:00 Hydrochlorothiazide 12.5 Mg Capsule PO 07/02/25 08:59 QDAY CONG Hydroxyzine HCl 25 mg 06/01/25 11:15 Hydroxyzine Hcl 25 Mg Tablet PO 07/01/25 11:14 HS PRN ANXIETY Ciprofloxacin/Dextrose 400 mg in 200 mls @ 200 mls/hr 06/01/25 21:00 Cipro Ivpb IV 06/08/25 20:59 Q12HR CONG Metronidazole 500 mg in 100 mls @ 200 mls/hr 06/01/25 14:00 Flagyl 500 Mg Iv IV 06/08/25 13:59 Q8HR CONG Lactated Ringer's 1,000 mls @ 75 mls/hr 06/01/25 03:08 06/01/25 03:29 Lactated Ringers IV 06/01/25 16:27 75 mls/hr .[id number] CONG Administration Losartan Potassium 100 mg 06/02/25 09:00 Losartan Potassium 25 Mg Tablet PO 07/02/25 08:59 QDAY CONG Morphine Sulfate 2 mg 06/01/25 02:54 06/01/25 11:30 Morphine Sulf Inj 4 Mg/Ml Vial IVP 06/06/25 02:53 2 mg Q6HR PRN Administration PAIN SCALE 4-10(Mod-Sev Ondansetron HCl 4 mg 06/01/25 04:14 Ondansetron Inj 2 Mg/Ml Inj 2 Ml IVP 07/01/25 04:13 Q6H PRN NAUSEA OR VOMITING Protocol Thiamine HCl 100 mg 06/01/25 11:15 06/01/25 11:30 Thiamine 100 Mg Tablet PO 07/01/25 11:14 100 mg QDAY CONG Administration Plan This is a 50-year-old male with past medical history of hypertension, gout presented to the ED with complaints of left lower quadrant abdominal pain worsening since 1 day associated with diarrrhea.He was admitted for Acute Diverticulitis # Acute diverticulitis # ? Colonic Mass -Dull LLQ pain worsening since 05/31 associated with abdominal distention, bloating and multiple episodes of diarrhea. -History of constipation, increased red meat usage, history of benign colonic mass in the past -CT abd/pelvis (05/31/2025): No focal liver or splenic lesions. No gallstones. No pancreatic mass. No renal or ureteral calculi, no hydronephrosis. Aorta normal size.18 mm umbilical hernia containing incarcerated fat. Normal appendix. Marked abnormal thickening of the descending colon with some diverticula and inflammatory change, No peridiverticular abscess. Urinary bladder wall thickening. No significant prostatomegaly. Abnormal thickening inflammatory changes descending colon most consistent with diverticulitis, underlying malignant neoplasm of the colon not excluded. Cystitis pattern Umbilical hernia containing incarcerated fat -Given morphine, ceftriaxone, Metro in ED. Plan ?On IV ciprofloxacin 400 mg every 12, MetroGyl 500 mg every 8hrs. ?On Ringer lactate at rate 75 cc/hr. ?Consulted manager assembly Dr. Mccabe. appreciate recommendations ?Starting on clear liquid diet. # Hypertension Continue home medication. -Losartan 100mg po qd -Hydrochlorothiazide 25mg po qd -Carvedilol 3.125 mg po bid # Alcohol disorder. History of 12 tall beers and vodka?binge drinking. Consider [facility] protocol if signs of alcohol withdrawal develops. Plan: -PO Folic acid and thiamine has been added. Code status: Full DVT prophylaxis: Heparin Diet: Clear liquid consistent Peters: None Lines: PIV Supplemental O2: none Disposition: Med Tele Assessment and plan discussed with my attending physician Dr. Crytsal Doan (PGY-1) - Internal medicine resident Attending Provider Attestation/Addendum I reviewed labs, imaging, EKG, home medications and prior available records. Face to face evaluation was performed by me. I have personally examined the patient and discussed assessment and plan with the IM team. I reviewed the resident note and agree with the plan with exceptions as below. Left lower abdominal pain Acute diverticulitis Alcohol use HFpEF Continue ciprofloxacin/Flagyl Management of pain as needed Avoid alcohol use Consulted GI
[2025-06-01 12:39] LABS: Free T4 (Free Thyroxine) 1.28 ng/dL (0.89-1.76)
[2025-06-01] MEDS: metroNIDAZOLE/NS 500 MG IVPB 500 MG/100 ML BAG 200 MG IV ×2 (14:03→21:19)
--- NOTE | 2025-06-01 14:28 | PD.RESCONSUL ---
HPI Data of Consult Requesting Physician: Hari Rojas MD Admitting Provider: Julianne Mae DO Attending Provider: Hari Rojas MD Primary Care Provider: Nicholas Fernandez MD Consult Narrative Reason for consult: diverticulitis History of present illness: Mr Garay is a 50-year-old male with history of AUD, CHF, HTN, and gout who presented to the ED with LLQ pain. The pain started ~2 weeks ago and was associated with severeal episodes of diarrhea >10x. The character of the pain is dull, non radiating, 5/10, and the stools are non bloody but loose. His pain worsened and was associated with distention which prompted him to present to the ed. He endorses 3 episodes of emesis (with some blood tinged), and some urinary frequency but denies LUTS, and melena. Last colonoscopy was in [address] Mccabe, biopsy was unremarkable, hemorrhoids on perianal exam, diffuse area of severely erythematous mucosa in the sigmoid colon which biopsies were taken, no tumor seen, Biopsy negative for dysplasia or microscopic colitis, edema and reactive lymphoid aggregate In the ED vitals were unremarkable, afebrile, and satting well on room air. Labs notable for hgb 13.4, Cr 1.6 (Baseline 1.2) and lipase 73. Imaging notable for CTAP with multiple colonic diverticula and short segment of descending colon thickening and pericolonic fat stranding suggestive of acute diverticulitis. Tx: given NS, morphine, Ceftriaxone and metronidozol Social history: 12 beers/day with vodka, he reports that he previously used to drink frequently and had cut back, but had recent binge drinking for the past 1 months. uses tobacco vape and occational thc use. Last drink 2 days ago. never had seizures. cc:: cc: Hari Rojas MD Exam Vital Signs Temp Pulse Resp BP Pulse Ox O2 Del Method 97.7 F 92 18 126/78 98 Room Air 06/01/25 08:00 06/01/25 08:00 06/01/25 08:00 06/01/25 08:00 06/01/25 08:00 06/01/25 08:00 Narrative Exam GENERAL: no acute distress, AAO x3, comfortably laying in bed HEENT: Head AT/ NC. Mucous membranes moist. PERRL. NECK: Supple, no lymphadenopathy, no carotid bruits. large neck girth CARDIOVASCULAR: RRR. Normal S1/S2, No m/r/g. trace edema of bilateral LEs. RESPIRATORY: CTAB. No wheezing, rhonchi, crackles. GASTROINTESTINAL: Abdomen mildly distended (pt reports improved from prior) non tender no palpable masses. Bowel sounds present no rebound, no guarding MUSCULOSKELETAL:? No cyanosis or edema, no visible joint swelling. NEUROLOGICAL: CN II-XII grossly intact. No focal deficits. Sensation intact, symmetric. PSYCHIATRIC: Awake and alert, not agitated, normal mood and affect. SKIN: No obvious rashes, no jaundice, normal turgor. Results Labs 06/01/25 04:44 06/01/25 04:44 Labs: Short CBC 05/31/25 06/01/25 Range/Units 22:57 04:44 WBC 7.0 7.2 (3.8-10.6) Thou/mm3 Hgb 13.4 L 12.4 L (13.5-16.0) g/dL Hct 37.3 L 35.4 L (41.0-53.0) % Plt Count 191 164 (140-440) Thou/mm3 BMP 05/31/25 06/01/25 22:57 04:44 Sodium 137 139 Potassium 3.7 4.0 Chloride 98 102 Carbon Dioxide 26.3 27.2 BUN 18 18 Creatinine 1.6 H 1.3 Glucose 135 H 116 H Calcium 9.0 8.3 Liver Function 05/31/25 06/01/25 Range/Units 22:57 04:44 Total Bilirubin 0.6 0.8 (0.3-1.2) mg/dL AST 36 H 26 (0-34) U/L ALT 18 21 (10-49) U/L Alkaline Phosphatase 83 69 (46-116) U/L Albumin 4.6 4.0 D (3.5-5.0) gm/dL Urine 05/31/25 Range/Units 23:34 Urine Color Lt-Yellow (Lt Yel-Yel) Urine Clarity Clear (Clear/Hazy) Urine pH 6.0 (5.0-7.0) Ur Specific [place] 1.020 (1.001-1.035) Urine Protein Trace (Neg - Trace) Urine Glucose (UA) Negative (Negative) Quality Measures Quality Measures none Medications Home Medications and Allergies Home Medications ?Medication ?Instructions ?Recorded ?Confirmed ?Type carvedilol 3.125 mg tablet (Coreg) 3.125 mg PO BID 06/21/21 06/01/25 History buspirone 10 mg tablet 10 mg PO BID 01/23/22 06/01/25 History losartan 100 1 tab PO QDAY 01/23/22 06/01/25 History mg-hydrochlorothiazide 25 mg tablet allopurinol 100 mg tablet 100 mg PO DAILY 09/11/22 06/01/25 History acetaminophen 500 mg tablet 500 mg PO Q6H PRN pain 06/01/25 06/01/25 History gabapentin 600 mg tablet 600 mg PO QDAY 06/01/25 06/01/25 History hydroxyzine HCl 25 mg tablet 25 mg PO HSPRN 06/01/25 06/01/25 History indomethacin 50 mg capsule 50 mg PO QDAY PRN gout 06/01/25 06/01/25 History meclizine 25 mg chewable tablet 25 mg PO .qdayprn PRN motion 06/01/25 06/01/25 History sickness/vertigo omeprazole 40 mg capsule,delayed 40 mg PO QAMAC 06/01/25 06/01/25 History release thiamine HCl (vitamin B1) 100 mg 100 mg PO QDAY 06/01/25 06/01/25 History tablet Allergies Allergy/AdvReac Type Severity Reaction Status Date / Time No Known Allergies Allergy Verified 03/31/25 04:14 Visit Medications Acetaminophen (Acetaminophen 325 Mg Tablet) 650 mg PO Q6H PRN PRN Reason: Fever >100.4 Stop: 07/01/25 02:53 Acetaminophen (Acetaminophen 325 Mg Tablet) 650 mg PO Q6H PRN PRN Reason: PAIN SCALE 1-3 (mild Stop: 07/01/25 02:53 Carvedilol (Carvedilol 3.125 Mg Tablet) 3.125 mg PO BIDWM [facility] Stop: 07/01/25 17:29 Folic Acid (Folic Acid 1 Mg Tablet) 1 mg PO QDAY [facility] Stop: 07/01/25 11:14 Last Admin: 06/01/25 11:30 Dose: 1 mg Gabapentin (Gabapentin 300 Mg Capsule) 600 mg PO QDAY [facility] Stop: 07/02/25 08:59 Heparin Sodium (Porcine) (Heparin Sod Inj 5000 Unit/Ml Vial) 5,000 unit SC BID [facility] Stop: 06/15/25 08:59 Last Admin: 06/01/25 09:02 Dose: 5,000 unit Hydrochlorothiazide (Hydrochlorothiazide 12.5 Mg Capsule) 25 mg PO QDAY [facility] Stop: 07/02/25 08:59 Hydromorphone HCl (Hydromorphone Inj 2 Mg/Ml Vial) 1 mg IVP Q6HR PRN PRN Reason: PAIN 7-10 Stop: 06/06/25 13:26 Hydroxyzine HCl (Hydroxyzine Hcl 25 Mg Tablet) 25 mg PO HS PRN PRN Reason: ANXIETY Stop: 07/01/25 11:14 Ciprofloxacin/Dextrose (Cipro Ivpb) 400 mg in 200 mls @ 200 mls/hr IV Q12HR [facility] Stop: 06/08/25 20:59 Metronidazole (Flagyl 500 Mg Iv) 500 mg in 100 mls @ 200 mls/hr IV Q8HR [facility] Stop: 06/08/25 13:59 Last Admin: 06/01/25 14:03 Dose: 200 mls/hr Lactated Ringer's (Lactated Ringers) 1,000 mls @ 75 mls/hr IV .[id number] [facility] Stop: 06/01/25 16:27 Last Admin: 06/01/25 03:29 Dose: 75 mls/hr Losartan Potassium (Losartan Potassium 25 Mg Tablet) 100 mg PO QDAY [facility] Stop: 07/02/25 08:59 Ondansetron HCl (Ondansetron Inj 2 Mg/Ml Inj 2 Ml) 4 mg IVP Q6H PRN; Protocol PRN Reason: NAUSEA OR VOMITING Stop: 07/01/25 04:13 Thiamine HCl (Thiamine 100 Mg Tablet) 100 mg PO QDAY [facility] Stop: 07/01/25 11:14 Last Admin: 06/01/25 11:30 Dose: 100 mg Discontinued Medications Sodium Chloride (Ns) 1,000 mls @ 999 mls/hr IV .Q1H1M ONE Stop: 06/01/25 02:38 Last Admin: 06/01/25 02:12 Dose: Not Given Metronidazole (Flagyl 500 Mg Iv) 500 mg in 100 mls @ 100 mls/hr IV X1 ONE Stop: 06/01/25 02:38 Last Infusion: 06/01/25 04:29 Dose: Infused Ceftriaxone Sodium/Dextrose (Rocephin/D5w 1gm Iv Premix) 1 gm in 50 mls @ 100 mls/hr IV X1 ONE Stop: 06/01/25 02:08 Last Infusion: 06/01/25 03:00 Dose: Infused Sodium Chloride (Ns) 500 mls @ 500 mls/hr IV .Q1H ONE Stop: 06/01/25 02:54 Last Infusion: 06/01/25 03:32 Dose: Infused Ciprofloxacin/Dextrose (Cipro Ivpb) 400 mg in 200 mls @ 200 mls/hr IV X1 ONE Stop: 06/01/25 04:29 Last Admin: 06/01/25 05:20 Dose: 200 mls/hr Influenza Virus Vaccine Quadrival (Influenza Virus Quadrivalent 0.5 Ml Syringe) 0.5 ml IMi .ONCE ONE Stop: 06/01/25 08:01 Last Admin: 06/01/25 09:02 Dose: 0.5 ml Morphine Sulfate (Morphine Sulf Inj 4 Mg/Ml Vial) 4 mg IVP X1 ONE Stop: 06/01/25 01:40 Last Admin: 06/01/25 02:13 Dose: 4 mg Morphine Sulfate (Morphine Sulf Inj 4 Mg/Ml Vial) 2 mg IVP Q6HR PRN PRN Reason: PAIN SCALE 4-10(Mod-Sev Stop: 06/06/25 02:53 Last Admin: 06/01/25 11:30 Dose: 2 mg Prochlorperazine Edisylate (Prochlorperazine Inj 5 Mg/Ml Vial 2 Ml) 5 mg IV X1 ONE; Protocol Stop: 06/01/25 01:39 Last Admin: 06/01/25 02:12 Dose: Not Given Assessment & Plan Plan Mr. Garay is a 50 year old man with history of recurrent episodes of diverticulitis, alcohol use disorder,methamphetamine use disorder (previously documented) CHF (50-55% on 12/2023 echo), HTN, and gout who presents with LLQ pain and diarrhea found to have acute diverticulitis on CTAP. Acute Diverticulitis c/f upper GI bleed Pt presented with acute worsening of 2 weeks of LLQ pain associated with mucus, nonbloody diarrhea and nausea and vomiting, found to have CTAP findings consistent with acute diverticulitis. He is afebrile, no leukocytosis, not immunosuppresed. He endorses some blood tinged emesis and coffee ground stools with mucus , hgb stable, although given hx of AUD, consider possible variceal bleeds, vs ulcers He had admission in 01/2024 for diverticulitis after failing outpatient treatment with oral cipro and metronidozole, he was treated inpatient with IV zosyn, he improved and was discharged on 11 days of amox-clavulonate 01/2024: Colonoscopy with hemorrhoids on perianal exam, diffuse area of severely erythematous mucosa in the sigmoid colon which biopsies were taken, no tumor seen, Biopsy negative for dysplasia or microscopic colitis, edema and reactive lymphoid aggregate 12/2023: CTAP with Significant inflammation distal descending colon and rectosigmoid colon with mass like area in the sigmoid colon, differential would include acute diverticulitis, underlying sigmoid colon carcinoma not excluded 05/2025: CTAP with abnormal thickening inflammatory changes descending colon most consistent with diverticulitis, underlying malignant neoplasm of the colon not excluded, and umbilical hernia and cystitis pattern Plan - IV fluids - Pain control - Clear liquid diet (if able to advance diet to low fiber diet) - on ciproflox and metronidazole - will consider colonoscopy if pt does not improve within 48-72 hrs on iv abx. - consider FOBT (given pt reported hx of melena and blood tinged emesis) Chronically incarcerated haital hernia (previously evaluated by [facility] in 2022 who recommended outpatient repair) AUD Methamphetamine use disorder (previously documented), (Utox negative on this admission) CHF HTN - management per primary team Plan discussed with Dr. Eliot Ganrett MD PGY1 Attending Provider Attestation/Addendum 50 years old male evaluated Laboratory data reviewed Imaging studies reviewed See case of acute diverticulitis Continue IV antibiotics Hold off colonoscopy or any intervention at the moment Monitor the patient closely for the next 48 to 72 hours I will follow the patient with you Thank you very much for the opportunity to participate in the care of this patient
[2025-06-01] MEDS: HYDROmorphone INJ 2 MG/ML VIAL 1 MG IVP (19:44)
[2025-06-02] VITALS (9 sets, daily range): BP systolic 119–152; BP diastolic 86–95; PULSE 67–102; RESP 18–19; TEMP 36.3–36.6; O2SAT 96–99
[2025-06-02 05:25] LABS: Basophils # (Auto) 0.1 Thou/mm3 (0.0-0.2); Basophils % (Auto) 1 % (0-2.5); Eosinophils # (Auto) 0.1 Thou/mm3 (0.0-0.5); Eosinophils % (Auto) 2 % (0-10); Hematocrit 35.0 % (41.0-53.0); Hemoglobin 12.1 g/dL (13.5-16.0); Immature Granulocytes Auto 0.01 Thou/mm3 (0.00-0.00); Lymphocytes # (Auto) 1.2 Thou/mm3 (1.0-4.8); Lymphocytes % (Auto) 26 % (10-50); Mean Corpuscular HGB Conc 34.6 g/dl (31.0-37.0); Mean Corpuscular Hemoglobin 32.5 pg (25.0-35.0); Mean Corpuscular Volume 94 fL (80-100); Monocytes # (Auto) 0.5 Thou/mm3 (0.0-0.8); Monocytes % (Auto) 11 % (0-12); Neutrophils # (Auto) 2.7 Thou/mm3 (1.8-7.7); Neutrophils % (Auto) 61 % (37-80); Nucleated Red Blood Cell # 0.00 Thou/mm3 (0.00-0.00); Nucleated Red Blood Cell % 0 /100 WBC (0); Platelet Count 141 Thou/mm3 (140-440); RDW Standard Deviation 43.0 fL (35.1-43.9); Red Blood Count 3.72 Miln/mm3 (4.50-5.90); White Blood Count 4.5 Thou/mm3 (3.8-10.6)
[2025-06-02 05:48] LABS: Alanine Aminotransferase 21 U/L (10-49); Albumin, Serum 3.9 gm/dL (3.5-5.0); Albumin/Globulin Ratio 1.4 (1.2-2.2); Alkaline Phosphatase 64 U/L (46-116); Anion Gap 10 (7-16); Aspartate Amino Transferase 31 U/L (0-34); BUN/Creatinine Ratio 11 Ratio (12-20); Bilirubin,Total 0.8 mg/dL (0.3-1.2); Blood Urea Nitrogen 12 mg/dL (9-23); Calcium 8.7 mg/dL (8.3-10.6); Calcium (Corrected) 8.8 mg/dL (8.5-10.1); Carbon Dioxide 28.6 mMol/L (20.0-31.0); Chloride 102 mMol/L (98-107); Creatinine (Component) 1.1 mg/dL (0.6-1.3); Estimated Creatinine Clearance 106.9 mL/min (>60); Globulin 2.7 gm/dL (2.3-3.5); Glucose 113 mg/dL (74-106); Magnesium 1.8 mg/dL (1.6-2.6); Osmolality,Calculated 281 (275-295); Phosphorous 2.8 mg/dL (2.4-5.1); Potassium 4.0 mMol/L (3.4-5.1); Sodium 141 mMol/L (136-145); Total Protein 6.6 gm/dL (5.7-8.2); eGFR > 60 See Note
[2025-06-02] MEDS: metroNIDAZOLE/NS 500 MG IVPB 500 MG/100 ML BAG 200 MG IV ×2 (06:26→14:08)
[2025-06-02] MEDS: HYDROmorphone INJ 2 MG/ML VIAL 1 MG IVP ×2 (08:40→14:13)
[2025-06-02] MEDS: CIPROFLOXACIN/D5w 400 MG IVPB 400 MG/200 ML BAG 200 MG IV (08:41)
[2025-06-02] MEDS: GABAPENTIN 300 MG CAPSULE 600 MG PO (08:42)
[2025-06-02] MEDS: THIAMINE 100 MG TABLET PO (08:42)
[2025-06-02] MEDS: LOSARTAN POTASSIUM 25 MG TABLET 100 MG PO (08:42)
[2025-06-02] MEDS: HEPARIN SOD INJ 5000 UNIT/ML VIAL SC (08:43)
[2025-06-02] MEDS: FOLIC ACID 1 MG TABLET PO (09:10)
--- NOTE | 2025-06-02 10:06 | PC.NURSE ---
DR. LEONARDO ROUNDING ON PATIENT, POC DISCUSSED.
--- NOTE | 2025-06-02 13:43 | ESDS_ITS ---
Planned Discharge Date 06/02/25 DS: Providers Provider Date of admission: 06/01/25 02:54 Primary care physician: Nicholas Fernandez MD Admitting Provider: Julianne Mae DO Attending Provider on Admission: Hari Rojas MD Consults: 06/01/25 03:09 Consult to Gastroenterology Stat Comment: Consulting Provider: Sharee Mccabe Attending Provider on DC: Zaida Doan DO Discharging Provider: Zaida Doan DO DS: Diagnosis Problem List Completed Was Problem List Reviewed/Reconciled?: Yes Hospital Course Hospital Course Hospital course: Summary: 50-year-old male with past medical history of congestive heart failure, hypertension, gout presented to the ED with complaints of left lower quadrant abdominal pain. CT scan showed diverticulitis. Patient was given antibiotics and IVF. Since he was afebrile, normal WBC count, and improvement in abdominal pain, he was discharged with PO antibiotics, pain medication, and instructions to follow up with GI doctor. ED course: ED visit vitals BP 148/91, pulse rate 94, respi rate 20, temperature 98.3 ?F, saturating 98% on room air. Pertinent labs are hemoglobin 13.4, hematocrit 37.3, creatinine 1.6, AST 36, lipase 73. Imaging findings are CT abdomen showing multiple colonic diverticula and there is a short segment of descending colon thickening and pericolonic fat stranding suggestive of acute diverticulitis and there are pericolonic lymph nodes as well ED treatment given: Morphine 4 mg, 500 mL NS, 1 g ceftriaxone, 500 mg metronidazole. Hospital Course: Based on CT findings of acute diverticulitis, the patient was started on IV Ciprofloxacin 400 mg every 12 hours and metronidazole 500 mg every 8 hours. Patient was also given LR IVF 75 mL/hr Patient's. For his hypertension, he received Losartan 100mg po qd, Hydrochlorothiazide 25mg po qd, Carvedilol 3.125 mg po bid. Patient received PO Folic acid and thiamine for his alcohol disorder. Patient was afebrile with no leukocytosis. Patient's left lower quadrant pain was improving. Per GI recommendations, patient was discharged with pain medication, p.o. antibiotics and follow-up with GI after discharge. Instructions: Please take ciprofloxacin 500mg tablet and metronidazole 500mg tablet twice a day for acute diverticulitis Take Cherry 5-325mg every 12 hours for breakthrough pain Take Naltrexone 50mg tablet every day for alcohol use disorder Take folic acid 1mg tablet once a day for nutritional support Stop taking cyclobenzaprine and ibuprofen - continue all other home medications Please follow-up with GI for possible mass in colon vs. diverticula Follow-up with your PCP within 1 week of discharge or follow-up at the [facility] [address] [place] [address] Ask your PCP to monitor for possible cystitis (urinalysis negative) and fat- containing umbilical hernia seen on CT imaging If your symptoms worsen or if you develop new chest pain, shortness of breath, dizziness, bleeding or severe abdominal pain - please come back to the ED immediately. STABLE to discharge to HOME #Acute diverticulitis # ? Colonic Mass #Congestive heart failure. HFpEF. #Not in Exacerbation #Hypertension #Alcohol disorder. Assessment and plan discussed with my attending physician Dr. Crystal Doan (PGY-1) - Internal medicine resident Time Spent with Patient Time attestation: Total time spent providing and/or coordinating discharge services: Time spent: Greater than 30 minutes Exam Vital Signs Temp Pulse Resp BP Pulse Ox O2 Del Method 97.9 F 95 18 144/86 H 98 Room Air 06/02/25 12:00 06/02/25 13:28 06/02/25 12:00 06/02/25 12:00 06/02/25 12:00 06/02/25 12:00 Narrative Exam General: No acute distress, well nourished, AAO x3 Eye: PERRL, EOMI, normal conjunctiva, no scleral icterus HENT: Normocephalic, atraumatic, hearing intact to conversation at normal volume, moist oral mucosa Neck: Supple, non-tender, no JVD, no lymphadenopathy Lungs: Non-labored respirations, symmetric chest rise, Clear to auscultate bilaterally, No wheezing, rhonchi, crackles Heart: Peripheral pulses intact bilaterally, Regular Rate and Rhythm. Abdomen: No palpable masses, dull and constant LLQ pain. Slight distention. Musculoskeletal: Normal range of motion and strength, No cyanosis or edema, No visible joint swelling Skin: Skin is warm, dry, no rashes or lesions. Psychiatric: Cooperative, appropriate mood and affect, Awake and alert, not agitated Neuro: Cranial nerves II-XII grossly intact. Strength 5/5 throughout. Sensations intact to light touch. Discharge Plan Plan Patient Disposition: HOME (Self Care) Patient condition on transfer: Stable Care Plan Goals: Please take ciprofloxacin 500mg tablet and metronidazole 500mg tablet twice a day for acute diverticulitis Take Cherry 5-325mg every 12 hours for breakthrough pain Take Naltrexone 50mg tablet every day for alcohol use disorder Take folic acid 1mg tablet once a day for nutritional support Stop taking cyclobenzaprine and ibuprofen - continue all other home medications Please follow-up with GI for possible mass in colon vs. diverticula Follow-up with your PCP within 1 week of discharge or follow-up at the [facility] [address] [place] [address] Ask your PCP to monitor for possible cystitis (urinalysis negative) and fat- containing umbilical hernia seen on CT imaging If your symptoms worsen or if you develop new chest pain, shortness of breath, dizziness, bleeding or severe abdominal pain - please come back to the ED immediately. Prescriptions/Referrals Prescriptions/Med Rec: New folic acid 1 mg Tablet 1 mg PO QDAY 30 Days Qty: 30 0RF ciprofloxacin HCl 500 mg tablet 500 mg PO Q12H 10 Days Qty: 20 0RF metronidazole 500 mg tablet 500 mg PO BID 10 Days Qty: 20 0RF naltrexone 50 mg tablet 50 mg PO QDAY 30 Days Qty: 30 0RF hydrocodone-acetaminophen 5-325 mg tablet 1 tab PO Q12H MDD hydrocodone 10mg PRN (Reason: pain) 4 Days Qty: 8 0RF Continued carvedilol [Coreg] 3.125 mg tablet 3.125 mg PO BID Rx Instructions: must administer with a meal/food losartan-hydrochlorothiazide 100-25 mg tablet 1 tab PO QDAY buspirone 10 mg tablet 10 mg PO BID allopurinol 100 mg tablet 100 mg PO DAILY albuterol sulfate 90 mcg/actuation aerosol powdr breath activated 2 inh inhalation Q6H PRN (Reason: shortness of breath or wheezing) Qty: 1 0RF omeprazole 40 mg capsule,delayed release(DR/EC) 40 mg PO QAMAC thiamine HCl (vitamin B1) 100 mg tablet 100 mg PO QDAY hydroxyzine HCl 25 mg tablet 25 mg PO HSPRN meclizine 25 mg tablet,chewable 25 mg PO .qdayprn PRN (Reason: motion sickness/vertigo) gabapentin 600 mg tablet 600 mg PO QDAY acetaminophen 500 mg tablet 500 mg PO Q6H PRN (Reason: pain) indomethacin 50 mg capsule 50 mg PO QDAY PRN (Reason: gout) Discontinued cyclobenzaprine 10 mg tablet 10 mg PO TID Qty: 14 0RF ibuprofen 800 mg tablet 800 mg PO Q8H PRN (Reason: pain) Qty: 30 0RF Referrals: Nicholas Fernandez MD [Primary Care Provider, Family Practice] Patient/Caregiver Discharge Instructions Education Materials: Diverticulosis Diverticulitis, Discharge Instructions for ... Print Language: Citizen Of [place] Stand Alone Forms: Lia Award Info., Patient Portal Info Letter, Work/Release Restrictions Discharge Order Discharge Orders: Discharge (Routine); Ordered 06/02/25 Ordered By: Kamran Hairston Quality Discharge Quality Measures VTE prophylaxis MD Attestestation MD Attestation I reviewed labs, imaging, EKG, home medications and prior available records. Face to face evaluation was performed by me. I have personally examined the patient and discussed assessment and plan with the IM team. I reviewed the resident note and agree with the plan with exceptions as below. Left lower abdominal pain Acute diverticulitis Alcohol use HFpEF Continue ciprofloxacin/Flagyl Management of pain as needed Added short-term hydrocodone/acetaminophen management Avoid alcohol use Outpatient follow-up with GI Time spent is 38 minutes. More than 50% of the time was spent on patient education and coordination of care.
--- NOTE | 2025-06-02 15:29 | PC.SS ---
Patient is alert/oriented. Patient was able to verify demographics. Patient states he resides alone. Patient is independent with ADL's. He does not possess any DME. Patient has multiple visits in ER and in patient status. Patient was admitted for abdominal pain. Patient states he follows at [facility] and last appt. was last week. Patient drives himself to appointments. Pharmacy: [facility]. Discharge plan is to return home. No d/c needs. alt medical decision maker; Kristen, evening sitter,
--- NOTE | 2025-06-02 20:55 | ESPR_ITS ---
Documentation for date of: 06/02/25 Subjective Subjective Interval history: Late entry for the note Patient should have an outpatient GI follow-up for a colonoscopy in 12 weeks patient being discharged on oral antibiotics Exam Vital Signs Temp Pulse Resp BP Pulse Ox O2 Del Method 97.9 F 95 18 144/86 H 98 Room Air 06/02/25 12:00 06/02/25 13:28 06/02/25 12:00 06/02/25 12:00 06/02/25 12:00 06/02/25 12:00 Objective Labs 06/02/25 04:29 06/02/25 04:29 Labs: Laboratory Results - last 24 hr 06/02/25 04:29 WBC 4.5 RBC 3.72 L Hgb 12.1 L Hct 35.0 L MCV 94 MCH 32.5 MCHC 34.6 RDW Std Deviation 43.0 Plt Count 141 Neut % (Auto) 61 Lymph % (Auto) 26 [place] % (Auto) 11 Eos % (Auto) 2 Baso % (Auto) 1 Neut # (Auto) 2.7 Lymph # (Auto) 1.2 [place] # (Auto) 0.5 Eos # (Auto) 0.1 Baso # (Auto) 0.1 Immature Gran # (Auto) 0.01 H Absolute Nucleated RBC 0.00 Immature Gran % 0 Nucleated RBC % 0 Sodium 141 Potassium 4.0 Chloride 102 Carbon Dioxide 28.6 Anion Gap 10 BUN 12 Creatinine 1.1 Estim Creat Clear Calc 106.9 eGFR > 60 BUN/Creatinine Ratio 11 L Glucose 113 H Calculated Osmolality 281 Calcium 8.7 Corrected Calcium 8.8 Phosphorus 2.8 Magnesium 1.8 Total Bilirubin 0.8 AST 31 ALT 21 Alkaline Phosphatase 64 Total Protein 6.6 Albumin 3.9 Globulin 2.7 Albumin/Globulin Ratio 1.4 Impressions Impression: Acute sigmoid diverticulitis Okay to discharge patient home on oral antibiotics Should have an outpatient colonoscopy in 12 weeks Assessment & Plan Time Spent With Patient Time: Total time spent is greater than 50% in coordination of care (as documented) at patient's floor/unit and/or counseling patient:
== END 2025-06-02 15:16 | disposition home or self-care (01) | DRG 244 ==
LOC: SERX 06-01 02:10 → SERHOLD 06-01 03:27 → S3SX 06-01 05:12
PROVIDERS: Nurse Practitioner Family; Admitting Provider Internal Medicine; Emergency Provider Emergency Medicine; PCP Family Medicine; Visit Provider Student in an Organized Health Care Education/Training Program
DX: K57.32 Diverticulitis of large intestine without perforation or abscess without bleeding (principal); I11.0 Hypertensive heart disease with heart failure; M10.9 Gout, unspecified; I50.32 Chronic diastolic (congestive) heart failure; K59.00 Constipation, unspecified; K42.9 Umbilical hernia without obstruction or gangrene; F17.290 Nicotine dependence, other tobacco product, uncomplicated; Z79.899 Other long term (current) drug therapy
CPT/HCPCS: 36415; 74176; 80053; 80061; 81001; 83690; 83735; 84100; 84439; 84443; 85025; 90686; 93225; 96365; 96366; 96372; 96375; 96376; 99284; J0696; J0744; J1171; J1644; J2270; J3490; J7120; J7999; A9270; J1836; J9060

== ENCOUNTER 2025-07-11 20:21 | Inpatient (IN) | payer MEDICAID, SELFPAY ==
[2025-07-11 20:22] VITALS: BMI 41.3
[2025-07-11 20:26] VITALS: BP 151/95; PULSE 87; RESP 19; TEMP 36.6; O2SAT 98
--- NOTE | 2025-07-11 20:38 | XR_ITS ---
Examination: CT abdomen and pelvis without contrast. Coronal 3-D reconstructions. Sagittal 2-D reconstructions. Date and time of exam: July 11, 2025, 2124 hours INDICATIONS: Abdominal pain and vomiting onset today COMPARISON: May 31, 2025 CTDI: vol (mGy): 13.2 DLP: (mGycm): 862 Technique: Axial images of the abdomen have been obtained, 3 mm slice thickness Intravenous contrast material has not been administered. Low dose protocols were performed. One or more of the following dose reduction techniques were used; automated exposure control, adjustment of the mA and/or KV according to patient size, use of iterative reconstruction technique. Findings: No focal liver or splenic lesions No gallstones No pancreatic or adrenal mass Moderate renal scar formation, no renal or ureteral calculi, no hydronephrosis 27 mm umbilical hernia which contains small bowel suspicious for mild incarceration Dilated small bowel loops Abnormal descending colon with a few diverticula, marked thickening and inflammatory change for instance axial image 162 Contracted urinary bladder Fat-containing inguinal hernias No significant prostatomegaly IMPRESSION: 27 mm umbilical hernia containing small bowel suspicious for early incarceration, clinical correlation advised, consider surgical consultation Abnormal descending colon, which may relate to diverticulitis, underlying tumor of the sigmoid colon not excluded, recommend colonoscopy follow-up
--- NOTE | 2025-07-11 20:39 | PD.EDRME ---
Rapid Medical Screening Exam RME Arrival date/time: 07/11/25 20:21 This is a case of 50-year-old male who have history of acute diverticulitis came in in the emergency room due to abdominal pain nausea vomiting today worsening of the symptoms this patient decided to start consult here in the emergency room Chief Complaint: Abdominal Pain Time Seen by Provider: 07/11/25 20:38 Vital signs: Vital Signs Temperature 98 F 07/11/25 20:26 Pulse Rate 87 07/11/25 20:26 Respiratory Rate 19 07/11/25 20:26 Blood Pressure 151/95 H 07/11/25 20:26 Pulse Oximetry (%) 98 07/11/25 20:26 Oxygen Delivery Method Room Air 07/11/25 20:26 Exam: Moderate tenderness whole abdomen no guarding no rebound no rigidity Clinical Impression: Abdominal pain
[2025-07-11] MEDS: MORPHINE SULF INJ 4 MG/ML VIAL IM (20:51)
[2025-07-11] MEDS: ONDANSETRON INJ 2 MG/ML INJ 2 ML 4 MG IM (20:57)
[2025-07-11 21:15] LABS: Collection Type, Urine Clean Catch
[2025-07-11 21:29] LABS: Bacteria,Urine Rare; Bilirubin,Urine Negative (Negative); Blood,Urine Negative (Negative); Clarity,Urine Clear (Clear/Hazy); Color,Urine Yellow (Lt Yel-Yel); Glucose, Urine Negative (Negative); Hyaline Casts,Urine 1 /hpf (0-1); Ketones,Urine Negative (Negative); Leukocyte Esterase,Urine Positive (Negative); Nitrite,Urine Negative (Negative); PH,Urine 5.5 (5.0-7.0); Protein,Urine 1+ (Neg - Trace); Specific Gravity,Urine 1.026 (1.001-1.035); Squamous Epithelial Cell,Urine 1 /hpf (0-5); Urobilinogen,Urine 2.0 mg/dL (0.0-1.0); WBC,Urine 14 /hpf (0-5)
[2025-07-11 21:31] LABS: RBC,Urine 4 /hpf (0-3)
[2025-07-11 21:35] LABS: Basophils # (Auto) 0.1 Thou/mm3 (0.0-0.2); Basophils % (Auto) 1 % (0-2.5); Eosinophils # (Auto) 0.1 Thou/mm3 (0.0-0.5); Eosinophils % (Auto) 1 % (0-10); Hematocrit 39.3 % (41.0-53.0); Hemoglobin 13.6 g/dL (13.5-16.0); Immature Granulocytes Auto 0.05 Thou/mm3 (0.00-0.00); Lymphocytes # (Auto) 1.9 Thou/mm3 (1.0-4.8); Lymphocytes % (Auto) 19 % (10-50); Mean Corpuscular HGB Conc 34.6 g/dl (31.0-37.0); Mean Corpuscular Hemoglobin 31.9 pg (25.0-35.0); Mean Corpuscular Volume 92 fL (80-100); Monocytes # (Auto) 0.5 Thou/mm3 (0.0-0.8); Monocytes % (Auto) 4 % (0-12); Neutrophils # (Auto) 7.6 Thou/mm3 (1.8-7.7); Neutrophils % (Auto) 75 % (37-80); Nucleated Red Blood Cell # 0.00 Thou/mm3 (0.00-0.00); Nucleated Red Blood Cell % 0 /100 WBC (0); Platelet Count 281 Thou/mm3 (140-440); RDW Standard Deviation 40.3 fL (35.1-43.9); Red Blood Count 4.27 Miln/mm3 (4.50-5.90); White Blood Count 10.2 Thou/mm3 (3.8-10.6)
[2025-07-11 21:44] LABS: Alanine Aminotransferase 26 U/L (10-49); Albumin, Serum 5.0 gm/dL (3.5-5.0); Albumin/Globulin Ratio 1.5 (1.2-2.2); Alkaline Phosphatase 86 U/L (46-116); Anion Gap 12 (7-16); Aspartate Amino Transferase 16 U/L (0-34); BUN/Creatinine Ratio 11 Ratio (12-20); Bilirubin,Total 0.4 mg/dL (0.3-1.2); Blood Urea Nitrogen 18 mg/dL (9-23); Calcium 9.5 mg/dL (8.3-10.6); Calcium (Corrected) 9.5 mg/dL (8.5-10.1); Carbon Dioxide 25.0 mMol/L (20.0-31.0); Chloride 104 mMol/L (98-107); Creatinine (Component) 1.6 mg/dL (0.6-1.3); Estimated Creatinine Clearance 72.0 mL/min (>60); Globulin 3.3 gm/dL (2.3-3.5); Glucose 126 mg/dL (74-106); Lipase 58 U/L (12-53); Osmolality,Calculated 285 (275-295); Potassium 4.6 mMol/L (3.4-5.1); Sodium 141 mMol/L (136-145); Total Protein 8.3 gm/dL (5.7-8.2); eGFR 52 See Note
--- NOTE | 2025-07-11 21:53 | PD.EDABDPN ---
ED Abdominal Pain RME/HPI General Chief Complaint: Abdominal Pain Stated complaint: ABD PAIN, VOMITING Time seen by provider: 07/11/25 20:38 Arrival date/time: 07/11/25 20:21 RME / HPI RME / HPI narrative: 07/11/25 20:21 This is a case of 50-year-old male who have history of acute diverticulitis came in in the emergency room due to abdominal pain nausea vomiting today worsening of the symptoms this patient decided to start consult here in the emergency room DR. NAIR MAIN ED EVALUATION: Patient presenting with onset of suprapubic abdominal pain x approximately 8 PM with persistent nausea and vomiting, and subsequent escalating LLQ abdominal pain radiating to left flank. Reports baseline urinary frequency, although denies dysuria or urgency. No hematuria. PMH: Congestive Heart Failure, Hypertension, Asthma, Diverticulitis, Gastroesophageal Reflux Disease, Obesity, Gout, Recreational Drug Use, Depression and Anxiety PSH: Tonsillectomy Allergies: NKDA Social: Methamphetamine, Marijuana Exam: Moderate tenderness whole abdomen no guarding no rebound no rigidity Impression: Abdominal pain Related Data Home Medications ?Medication ?Instructions ?Recorded ?Confirmed carvedilol 3.125 mg tablet (Coreg) 3.125 mg PO BID 06/21/21 06/01/25 buspirone 10 mg tablet 10 mg PO BID 01/23/22 06/01/25 losartan 100 1 tab PO QDAY 01/23/22 06/01/25 mg-hydrochlorothiazide 25 mg tablet allopurinol 100 mg tablet 100 mg PO DAILY 09/11/22 06/01/25 acetaminophen 500 mg tablet 500 mg PO Q6H PRN pain 06/01/25 06/01/25 gabapentin 600 mg tablet 600 mg PO QDAY 06/01/25 06/01/25 hydroxyzine HCl 25 mg tablet 25 mg PO HSPRN 06/01/25 06/01/25 indomethacin 50 mg capsule 50 mg PO QDAY PRN gout 06/01/25 06/01/25 meclizine 25 mg chewable tablet 25 mg PO .qdayprn PRN motion 06/01/25 06/01/25 sickness/vertigo omeprazole 40 mg capsule,delayed 40 mg PO QAMAC 06/01/25 06/01/25 release thiamine HCl (vitamin B1) 100 mg 100 mg PO QDAY 06/01/25 06/01/25 tablet Previous Rx's ?Medication ?Instructions ?Recorded albuterol sulfate 90 mcg/actuation 2 inh inhalation Q6H PRN shortness 09/12/24 breath activated powder inhaler of breath or wheezing #1 ea Allergies Allergy/AdvReac Type Severity Reaction Status Date / Time No Known Allergies Allergy Verified 07/11/25 20:22 Review of Systems Review of Systems Systems Reviewed: All systems reviewed, normal except as documented Past Medical History Past Medical History CARDIAC: Positive Cardiac Disorders, Congestive Heart Failure and Hypertension RESPIRATORY: Positive Asthma GASTROINTESTINAL: Positive Gastrointestinal Disorders, Diverticulitis, Gastroesophageal Reflux Disease and Obesity MUSCULOSKELETAL: Positive Musculoskeletal Disorders and Gout PSYCHO/SOCIAL: Positive Recreational Drug Use, Depression and Anxiety OTHER HISTORY: Positive Hospitalization, Chicken Pox and Measles Family History FAMILY HISTORY: Positive Family Cardiac Disorders and Family Gastrointestinal Problems Surgical History SURGICAL: Positive Tonsillectomy Social History SMOKING STATUS: Current some day smoker SUBSTANCE USE: marijuana and methamphetamine ED Exam Narrative Physical exam: GEN. APPEARANCE: The patient is alert awake oriented X-3 under moderate distress c/o suprapubic abdominal pain, does not look ill/toxic. Patient has good eye contact. Patient is cooperative. VITALS: All vitals were reviewed and the pulse ox is 98%, which is normal according to my interpretation HEENT: Normocephalic, atraumatic and nontender. Pupils are equal and reactive. Oral mucosa is moist. NECK: Supple, nontender, no meningismus, no JVD. There is no thyromegaly and no lymphadenopathy. CHEST: Nontender on palpation no deformity and no crepitus. CARDIOVASCULAR: Heart regular rhythm, no murmur or gallop rub or extra beats. LUNGS: Clear to auscultation bilaterally with symmetrical chest rise. No laboring tachypnea or wheezing. No intercostal subcostal retraction. No rales and no rhonchi. ABDOMEN: Obese, markedly tender suprapubic/LLQ with localized signs of peritoneal irritation. Slight perturbance of superior portion of umbilical region with TTP. No pulsatile masses or bruits. Active and normal bowel sounds. EXTREMITIES: Normal inspection and palpation. No edema. No cyanosis. Patient is able to move all 4 extremities well SKIN: Warm and dry, no rashes noted. MUSCULOSKELETAL: No lumbar or midline bony tenderness. There is no CVA tenderness. No paraspinal muscle spasm or tenderness. NEURO: Cranial nerves II through XII grossly intact. There are no focal neurologic deficits noted. GCS is 15 PSYCHIATRIC: Patient is in normal mood and affect, cooperative. LYMPHATICS: No major lymphadenopathy noted. Course Quality Measures none Orders Category Date Time Status CT abdomen pelvis wo con Stat Exams 07/11/25 20:38 Completed CBC Stat Lab 07/11/25 21:00 Completed Comprehensive Metabolic Panel Stat Lab 07/11/25 21:00 Completed Lactate (Lactic Acid) Stat Lab 07/12/25 00:53 Completed Lipase Stat Lab 07/11/25 21:00 Completed Urinalysis Stat Lab 07/11/25 20:53 Completed HYDROmorphone INJ [Dilaudid Inj] Med 07/11/25 21:56 Discontinued 1 mg IVP X1 ONE Morphine* Inj Med 07/11/25 20:38 Discontinued 4 mg IM X1 ONE Ondansetron Inj [Zofran Inj] Med 07/11/25 20:38 Discontinued 4 mg IM X1 ONE Sodium Chloride 0.9% 250 ml [Ns] 250 ml Med 07/11/25 21:58 Discontinued IV 250 mls/hr Vital Signs Vital signs: Vital Signs Temperature 98 F 07/11/25 20:26 Pulse Rate 87 07/11/25 20:26 Respiratory Rate 19 07/11/25 20:26 Blood Pressure 151/95 H 07/11/25 20:26 Pulse Oximetry (%) 98 07/11/25 20:26 Oxygen Delivery Method Room Air 07/11/25 20:26 Abdominal Pain MDM MDM Narrative MDM Narrative:: Scribe Attestation: Lauryn Lara am scribing for and in the presence of Dr. Sotelo. Provider Notation: Although this document has been carefully reviewed, there may still be some phonetic and other typographical errors. These errors are purely grammatical due to imperfections in the software program and should not be construed in any way to compromise the substance of the patient's medical care during this visit. Patient presenting with onset of suprapubic abdominal pain x approximately 8 PM with persistent nausea and vomiting, and subsequent escalating LLQ abdominal pain radiating to left flank. Reports baseline urinary frequency, although denies dysuria or urgency. Laboratory markers including CBC, demonstrated a WBC of 10.2, H&H 13/39, and normal platelet count. Serum chemistries demonstrate mildly elevated Creatinine and GFR of 52. Lipase mildy elevated at 58. UA demonstrates both pyuria and microhematuria. Patient hydrated with saline and received incremental doses of low-dose narcotic analgesics/anti-emetics with mild to moderate relief. Patient referred for CT of the abdomen/pelvis which demonstrated evidence of incarcerated umbilical hernia and diverticulitis. Final diagnoses include Diverticulitis and Umbilical Hernia (spontaneously reduced). Patient data External records reviewed:: [facility] previous records (Reviewed prior ED records from 06/01/25. Patient was seen for Acute diverticulitis.) Clinical information provided by:: patient Social determinants that could affect healthcare access:: substance use (Methamphetamine, Marijuana) Patient has the following chronic illnesses:: Congestive Heart Failure, Hypertension, Asthma, Diverticulitis, Gastroesophageal Reflux Disease, Obesity, Gout, Recreational Drug Use, Depression and Anxiety How is presenting disease/condition affected by chronic disease/condition?: exacerbated by Evaluation data The following diagnostics were reviewed and interpreted by me:: lab results and radiology exam(s) Lab and/or radiology exams considered but not ordered:: None Interpretation Summary: RADIOLOGY Abdomen/Pelvis CT: Findings: No focal liver or splenic lesions No gallstones No pancreatic or adrenal mass Moderate renal scar formation, no renal or ureteral calculi, no hydronephrosis 27 mm umbilical hernia which contains small bowel suspicious for mild incarceration Dilated small bowel loops Abnormal descending colon with a few diverticula, marked thickening and inflammatory change for instance axial image 162 Contracted urinary bladder Fat-containing inguinal hernias No significant prostatomegaly IMPRESSION: 27 mm umbilical hernia containing small bowel suspicious for early incarceration, clinical correlation advised, consider surgical consultation Abnormal descending colon, which may relate to diverticulitis, underlying tumor of the sigmoid colon not excluded, recommend colonoscopy follow-up Medications / Prescriptions Medications or Prescriptions considered but not ordered:: None Medication administrations:: Medication Administration History Discontinued Medications Hydromorphone HCl (Hydromorphone Inj 2 Mg/Ml Vial) 1 mg IVP X1 ONE Stop: 07/11/25 21:57 Last Admin: 07/11/25 22:07 Dose: 1 mg Documented By: HARRY Sodium Chloride (Ns) 250 mls @ 250 mls/hr IV .Q1H ONE Stop: 07/11/25 22:57 Last Infusion: 07/11/25 23:07 Dose: Infused Documented By: Admin: 07/11/25 22:07 Dose: 250 mls/hr Documented By: HARRY Morphine Sulfate (Morphine Sulf Inj 4 Mg/Ml Vial) 4 mg IM X1 ONE Stop: 07/11/25 20:39 Last Admin: 07/11/25 20:51 Dose: 4 mg Documented By: REYNA Ondansetron HCl (Ondansetron Inj 2 Mg/Ml Inj 2 Ml) 4 mg IM X1 ONE; Protocol Stop: 07/11/25 20:39 Last Admin: 07/11/25 20:57 Dose: 4 mg Documented By: REYNA See above if any Consultations Consultation(s) initiated? (list below): Yes Consultation #1 (Physician, Specialty, Details): Discussed with physician resident for admission. Reviewed the patient?s HPI, PMHx, lab and/or radiology results. Discussed treatment plan. Will consult an admission to the hospitalist. Time: 00:16 Diagnosis Differential diagnosis abdominal pain: abdominal pain, acute appendicitis, calculus of kidney, constipation, diverticulitis, gastroenteritis, small bowel obstruction and other (Diverticulosis, Ileus) Most likely diagnosis given after review of the tests above:: Diverticulitis, Umbilical Hernia (spontaneously reduced) Admission Indicated Admission indicated?: indicated Explain why admission is indicated or not indicated:: Diverticulitis, Umbilical Hernia (spontaneously reduced) Admission Request Was there a request for admission?: Yes Admission Attestation Admission request attestation: Discussed case with [] from Hospitalist service regarding admission. Discussed patients ED course, exam findings, labs, and radiology results. The Hospitalist [agrees,declines] to accept the patient for admission. Disposition Plan Disposition Plan: Admit Discharge Plan Plan Patient Disposition: Admit Acute Care w/in Hospital Prescriptions/Referrals Prescriptions/Med Rec: No Action carvedilol [Coreg] 3.125 mg tablet 3.125 mg PO BID Rx Instructions: must administer with a meal/food losartan-hydrochlorothiazide 100-25 mg tablet 1 tab PO QDAY buspirone 10 mg tablet 10 mg PO BID allopurinol 100 mg tablet 100 mg PO DAILY albuterol sulfate 90 mcg/actuation aerosol powdr breath activated 2 inh inhalation Q6H PRN (Reason: shortness of breath or wheezing) Qty: 1 0RF omeprazole 40 mg capsule,delayed release(DR/EC) 40 mg PO QAMAC thiamine HCl (vitamin B1) 100 mg tablet 100 mg PO QDAY hydroxyzine HCl 25 mg tablet 25 mg PO HSPRN meclizine 25 mg tablet,chewable 25 mg PO .qdayprn PRN (Reason: motion sickness/vertigo) gabapentin 600 mg tablet 600 mg PO QDAY acetaminophen 500 mg tablet 500 mg PO Q6H PRN (Reason: pain) indomethacin 50 mg capsule 50 mg PO QDAY PRN (Reason: gout) Referrals: Nicholas Fernandez MD [Primary Care Provider, Family Practice] - In 1 week Problem List Clinical Impression: Diverticulitis, Umbilical hernia Patient/Caregiver Discharge Instructions Print Language: Japanese Stand Alone Forms: Lia Award Info., Patient Portal Info Letter
[2025-07-11] MEDS: HYDROmorphone INJ 2 MG/ML VIAL 1 MG IVP (22:07)
[2025-07-11] MEDS: SODIUM CHLORIDE 0.9% 250 ML 250 ML IV (22:07)
[2025-07-12] VITALS (15 sets, daily range): BP systolic 99–142; BP diastolic 57–98; PULSE 78–98; RESP 14–96; TEMP 36.1–36.8; O2SAT 92–99
[2025-07-12 01:03] LABS: Lactate (Lactic Acid) 1.5 mMol/L (0.4-2.0)
[2025-07-12] MEDS: RINGERS LACTATED 1000 ML 1,000 ML 100 ML IV (01:24)
--- NOTE | 2025-07-12 01:25 | PD.RESHP ---
Documentation for date of: 07/12/25 [facility] History of Present Illness History of present illness: 50-year-old male with a history of HFpEF (EF 50 to 55%), hypertension, and gout presents to the ED with periumbilical pain, nausea, and 10 episodes of non-bloody vomiting today. After several vomiting episodes, he developed an umbilical hernia, which spontaneously reduced after a short period. He denies diarrhea, constipation, or changes in bowel habits and had a bowel movement today. His last alcoholic drink was two days ago. He reports no urinary symptoms, chest pain, shortness of breath, or headache. ED course: Initial vitals include T 98, BP 151/91, RR 19, HR 87, SpO2 98% room air. CBC within normal range. CMP shows creatinine 1.6, lactic acid 1.5, lipase mildly elevated 58. CT abdomen/pelvis shows 27 mm umbilical hernia containing small bowel suspicious for early incarceration. Past medical history: As stated above. Past surgical history: Unremarkable. Allergies: NKDA. Family history: Noncontributory. Social history: Binge drinks 12 tall beers along with vodka every week, smokes vape and occasional marijuana. Patient admitted for umbilical hernia, with concern for potential bowel incarceration (per imaging). Review of Systems Review of Systems Narrative Review of Systems: All systems reviewed negative unless stated otherwise above. Exam Vital Signs Temp Pulse Resp BP Pulse Ox O2 Del Method 98 F 88 16 151/95 H 98 Room Air 07/11/25 20:26 07/12/25 01:16 07/12/25 01:16 07/11/25 20:26 07/11/25 20:26 07/11/25 20:26 Narrative Exam General: AOx3, no acute distress, able to speak full sentences HEENT: NC/AT, mucous membranes moist, bilateral sclera anicteric Cardiovascular: regular rate and rhythm, S1/S2 present, no murmurs appreciated Pulmonary: clear to auscultation bilaterally, no rales/rhonchi/wheezes Abdominal: soft, non-tender, distended likely from body habitus, no rebound/guarding, normal bowel sounds present Musculoskeletal: normal ROM, no peripheral edema Skin: warm and dry, intact, no rashes, Neuro: CN II-XII intact, no focal deficits Results: Labs 07/12/25 05:20 07/12/25 15:10 Labs: Short CBC 07/11/25 Range/Units 21:00 WBC 10.2 (3.8-10.6) Thou/mm3 Hgb 13.6 (13.5-16.0) g/dL Hct 39.3 L (41.0-53.0) % Plt Count 281 D (140-440) Thou/mm3 BMP 07/11/25 21:00 Sodium 141 Potassium 4.6 Chloride 104 Carbon Dioxide 25.0 BUN 18 Creatinine 1.6 H Glucose 126 H Calcium 9.5 Liver Function 07/11/25 Range/Units 21:00 Total Bilirubin 0.4 (0.3-1.2) mg/dL AST 16 (0-34) U/L ALT 26 (10-49) U/L Alkaline Phosphatase 86 (46-116) U/L Albumin 5.0 (3.5-5.0) gm/dL Urine 07/11/25 Range/Units 20:53 Urine Color Yellow (Lt Yel-Yel) Urine Clarity Clear (Clear/Hazy) Urine pH 5.5 (5.0-7.0) Ur Specific [place] 1.026 (1.001-1.035) Urine Protein 1+ A (Neg - Trace) Urine Glucose (UA) Negative (Negative) Quality Measures Quality Measures VTE prophylaxis Medications Home Medications and Allergies Home Medications ?Medication ?Instructions ?Recorded ?Confirmed ?Type carvedilol 3.125 mg tablet (Coreg) 3.125 mg PO BID 06/21/21 07/12/25 History buspirone 10 mg tablet 10 mg PO BID 01/23/22 07/12/25 History losartan 100 1 tab PO QDAY 01/23/22 07/12/25 History mg-hydrochlorothiazide 25 mg tablet allopurinol 100 mg tablet 100 mg PO DAILY 09/11/22 07/12/25 History acetaminophen 500 mg tablet 500 mg PO Q6H PRN pain 06/01/25 07/12/25 History gabapentin 600 mg tablet 600 mg PO QDAY 06/01/25 07/12/25 History hydroxyzine HCl 25 mg tablet 25 mg PO HSPRN 06/01/25 07/12/25 History indomethacin 50 mg capsule 50 mg PO QDAY PRN gout 06/01/25 07/12/25 History meclizine 25 mg chewable tablet 25 mg PO .qdayprn PRN motion 10/13/25 11/23/25 History sickness/vertigo omeprazole 40 mg capsule,delayed 40 mg PO QAMAC 06/01/25 07/12/25 History release thiamine HCl (vitamin B1) 100 mg 100 mg PO QDAY 06/01/25 07/12/25 History tablet Allergies Allergy/AdvReac Type Severity Reaction Status Date / Time No Known Allergies Allergy Verified 07/11/25 20:22 Visit Medications Acetaminophen (Acetaminophen 325 Mg Tablet) 650 mg PO Q6H PRN PRN Reason: PAIN OR FEVER > 101 Stop: 08/11/25 00:59 Hydralazine HCl (Hydralazine Inj 20 Mg/Ml Vial) 10 mg IV Q4H PRN PRN Reason: SBP >180 OR DBP >100 Stop: 08/11/25 01:10 Lactated Ringer's (Lactated Ringers) 1,000 mls @ 100 mls/hr IV .Q10H CONG Stop: 07/12/25 11:14 Morphine Sulfate (Morphine Sulf Inj 4 Mg/Ml Vial) 2 mg IVP Q4H PRN PRN Reason: PAIN SCALE 7-10 (Severe Stop: 07/17/25 01:04 Ondansetron HCl (Ondansetron Inj 2 Mg/Ml Inj 2 Ml) 4 mg IVP Q6H PRN; Protocol PRN Reason: NAUSEA OR VOMITING Stop: 08/11/25 00:59 Sennosides (Senna Tablet) 1 tab PO BID PRN; Protocol PRN Reason: CONSTIPATION Stop: 08/11/25 01:04 Discontinued Medications Hydromorphone HCl (Hydromorphone Inj 2 Mg/Ml Vial) 1 mg IVP X1 ONE Stop: 07/11/25 21:57 Last Admin: 07/11/25 22:07 Dose: 1 mg Sodium Chloride (Ns) 250 mls @ 250 mls/hr IV .Q1H ONE Stop: 07/11/25 22:57 Last Infusion: 07/11/25 23:07 Dose: Infused Ceftriaxone Sodium/Dextrose (Rocephin/D5w 1gm Iv Premix) 1 gm in 50 mls @ 100 mls/hr IV X1 ONE Stop: 07/12/25 01:39 Metronidazole (Flagyl 500 Mg Iv) 500 mg in 100 mls @ 100 mls/hr IV X1 ONE Stop: 07/12/25 02:10 Morphine Sulfate (Morphine Sulf Inj 4 Mg/Ml Vial) 4 mg IM X1 ONE Stop: 07/11/25 20:39 Last Admin: 07/11/25 20:51 Dose: 4 mg Ondansetron HCl (Ondansetron Inj 2 Mg/Ml Inj 2 Ml) 4 mg IM X1 ONE; Protocol Stop: 07/11/25 20:39 Last Admin: 07/11/25 20:57 Dose: 4 mg Assessment & Plan Plan 50-year-old male with a history of HFpEF, hypertension, and gout presents to the ED with periumbilical pain, nausea, and 10 episodes of non-bloody vomiting. Patient admitted for umbilical hernia, with concern for potential bowel incarceration (per imaging). #Incarcerated umbilical hernia #Intractable abdominal pain, nausea and vomiting #Diverticulosis Concern for bowel incarceration Periumbilical pain, nausea, and 10 episodes of non-bloody vomiting. After several vomiting episodes, he developed an umbilical hernia, which spontaneously reduced after a short period. WBC within normal range Afebrile CT abdomen/pelvis shows 27 mm umbilical hernia containing small bowel suspicious for early incarceration. Plan ? General Surgery consulted, Dr. Cagle, to evaluate the patient ? N.p.o. ? Dilaudid 1 mg every 4 hours as needed ? No antibiotics indicated at this #HFpEF Last echo 01/10 showed EF 55 to 55% Patient is hypovolemic Will hydrate carefully Plan ? Day team to consider getting cardio clearance if surgery is indicated #LIA Likely pre-renal in setting of decreased po intake and fluid loss Patient given 3L of NS bolus Patient started on 100cc/hr of LR maintenece Avoid/renally dose medications #Hypertension Patient losartan 100mg po qd, Hydrochlorothiazide 25mg po qd, Carvedilol 3.125 mg po bid Plan ? Hydralazine IV as needed while NPO ? Restart home meds when no longer NPO #Alcohol use disorder History of binge drinking 12 tall beers and 1 bottle of vodka every week, last drink 2 days ago Plan: ? Consider CIWA protocol if signs of alcohol withdrawal develops Health Maintenance: Diet: N.p.o. GI prophylaxis: None DVT prophylaxis: SCDs Antibiotics: None CODE STATUS: Full Disposition: MedSurg Case discussed with my attending Dr. Porter, and senior resident, Dr. Tommy Albright MD PGY-1 Attending Provider Attestation/Addendum After examination of the patient and review of the clinical data I feel that this patient needs admission to the hospital for further treatment/evaluation. Plan of care discussed with patient and is in agreement. I Sujatha Porter MD, attest that I was physically present for thompson portions of evaluation, and examined patient, labs and imagings and plan of care were discussed with IM residents team, and I agree with the findings and plans documented above.
--- NOTE | 2025-07-12 01:27 | PC.NURSE ---
CALLED PT DOES NOT WANT MORPHINE FOR PAIN MEDICATION, IT DOES NOT WORK AND DOES NOT LIKE HOW IT MAKES HIM FEEL WOULD LIKE TO HAVE DILAUDID PROVIDER WILL PUT IN NEW ORDERS
[2025-07-12] MEDS: ONDANSETRON INJ 2 MG/ML INJ 2 ML 4 MG IVP (01:33)
[2025-07-12] MEDS: HYDROmorphone INJ 2 MG/ML VIAL 1 MG IVP ×5 (01:34→23:39)
[2025-07-12 05:48] LABS: Basophils # (Auto) 0.1 Thou/mm3 (0.0-0.2); Basophils % (Auto) 1 % (0-2.5); Eosinophils # (Auto) 0.0 Thou/mm3 (0.0-0.5); Eosinophils % (Auto) 0 % (0-10); Hematocrit 35.3 % (41.0-53.0); Hemoglobin 12.0 g/dL (13.5-16.0); Immature Granulocytes Auto 0.04 Thou/mm3 (0.00-0.00); Lymphocytes # (Auto) 2.0 Thou/mm3 (1.0-4.8); Lymphocytes % (Auto) 22 % (10-50); Mean Corpuscular HGB Conc 34.0 g/dl (31.0-37.0); Mean Corpuscular Hemoglobin 32.0 pg (25.0-35.0); Mean Corpuscular Volume 94 fL (80-100); Monocytes # (Auto) 0.6 Thou/mm3 (0.0-0.8); Monocytes % (Auto) 7 % (0-12); Neutrophils # (Auto) 6.2 Thou/mm3 (1.8-7.7); Neutrophils % (Auto) 70 % (37-80); Nucleated Red Blood Cell # 0.00 Thou/mm3 (0.00-0.00); Nucleated Red Blood Cell % 0 /100 WBC (0); Platelet Count 229 Thou/mm3 (140-440); RDW Standard Deviation 41.8 fL (35.1-43.9); Red Blood Count 3.75 Miln/mm3 (4.50-5.90); White Blood Count 8.8 Thou/mm3 (3.8-10.6)
[2025-07-12 06:00] LABS: Partial Thromboplastin Time 25.8 Seconds (22.0-36.0)
[2025-07-12 06:18] LABS: Alanine Aminotransferase 19 U/L (10-49); Albumin, Serum 4.5 gm/dL (3.5-5.0); Albumin/Globulin Ratio 1.6 (1.2-2.2); Alkaline Phosphatase 69 U/L (46-116); Anion Gap 9 (7-16); Aspartate Amino Transferase 20 U/L (0-34); BUN/Creatinine Ratio 18 Ratio (12-20); Bilirubin,Total 0.6 mg/dL (0.3-1.2); Blood Urea Nitrogen 25 mg/dL (9-23); Calcium 8.4 mg/dL (8.3-10.6); Calcium (Corrected) 8.4 mg/dL (8.5-10.1); Carbon Dioxide 27.8 mMol/L (20.0-31.0); Chloride 103 mMol/L (98-107); Creatinine (Component) 1.4 mg/dL (0.6-1.3); Estimated Creatinine Clearance 82.3 mL/min (>60); Globulin 2.9 gm/dL (2.3-3.5); Glucose 100 mg/dL (74-106); Magnesium 1.6 mg/dL (1.6-2.6); Osmolality,Calculated 283 (275-295); Phosphorous 4.7 mg/dL (2.4-5.1); Potassium 4.9 mMol/L (3.4-5.1); Sodium 140 mMol/L (136-145); Total Protein 7.4 gm/dL (5.7-8.2); eGFR > 60 See Note
[2025-07-12] MEDS: SODIUM CHLORIDE 0.9% 1000 ML 1,000 ML 999 ML IV (07:07)
--- NOTE | 2025-07-12 08:33 | PD.SURCONS ---
HPI Consult details Consult date: 07/12/25 Reason for consultation narrative: This patient is a 50-year-old morbidly obese white male who was seen because of incarcerated umbilical hernia which brought him to the emergency room. Patient said that he ate something last night and was vomiting and 8-10 times. Then he noticed a painful bulging around the umbilicus and he came to the emergency room. He has had a similar problem in the past and was diagnosed with umbilical hernia. Patient is vomiting stopped and the umbilical hernia was reduced. But because of the severe pain that he experienced he wants his hernia repaired at this time. Patient's past medical history consisted of hypertension gout and history of sigmoid diverticulitis for which she has been admitted to the hospital patient has undergone colonoscopy in the past in [place]. Patient has a history of congestive heart failure in the past for which evaluated by the pantry goods maker with an echo which was showing 50 to 55% ejection fraction. His other diagnoses consisted of alcohol use and pericarditis and pericardial effusion and chronic back pain and depression. Past Medical History Past Medical History NEUROLOGIC: Negative Neurological Disorders, Cerebrovascular Accident, Transient Ischemic Attacks (TIA), Dementia, Alzheimer's Disease, Parkinson's Disease, Brain Tumor, Meningitis, Seizures, Epilepsy, Multiple Sclerosis, Cerebral Palsy, Amyotrophic Lateral Sclerosis (ALS/Shirley Gehrig's), Guillain-Brainard Syndrome, Spina Bifida, Paralysis, Peripheral Neuropathy, Paulino's Palsy, Subdural Hematoma, Migraine, Head Trauma, Spinal Cord Injury or Traumatic Brain Injury CARDIAC: Positive Cardiac Disorders, Congestive Heart Failure and Hypertension; Negative Myocardial Infarction, Cardiac Arrhythmia, Atrial Fibrillation, Angina, Heart Murmur, Coronary Artery Disease, Atherosclerotic Heart Disease, Peripheral Vascular Disease, Hypercholesterolemia, Aneurysm, Congenital Heart Disease, Valvular Heart Disease, Rheumatic Fever, Cardiomyopathy, Edema, Pericarditis, Cellulitis, Deep Vein Thrombosis, Hypotension or Varicose Veins RESPIRATORY: Positive Asthma; Negative Respiratory Disorders, Chronic Obstructive Pulmonary Disease (COPD), Bronchitis, Emphysema, Pneumonia, Pulmonary Fibrosis, Cystic Fibrosis, Tuberculosis, Pulmonary Embolism, Pulmonary Edema or Sleep Apnea GASTROINTESTINAL: Positive Gastrointestinal Disorders, Diverticulitis, Gastroesophageal Reflux Disease and Obesity; Negative Hepatitis, Cirrhosis, Pancreatitis, Celiac Disease, Gall Bladder Disease, Gastrointestinal Bleed, Esophageal Varices, Bernal's Esophagus, Colitis, Ulcerative Colitis, Diverticulosis, Ulcer, Colorectal Cancer, Irritable Bowel, Crohn's Disease, Obstructive Bowel, Hiatal Hernia or Hemorrhoids GENITOURINARY: Negative Genitourinary Disorders, Renal Disease, Kidney Stones, Polycystic Kidney Disease, Neurogenic Bladder, Inguinal Hernia, Dialysis, Prostate Cancer or Benign Prostatic Hyperplasia REPRODUCTIVE: Negative Breast Cancer, Fibroids, Genital Herpes, Gonorrhea, Syphilis or Testicular Cancer MUSCULOSKELETAL: Positive Musculoskeletal Disorders and Gout; Negative Muscular Dystrophy, Myasthenia Gravis, Marfan's Syndrome, Bone Cancer, Arthritis, Rheumatoid Arthritis, Osteoporosis, Degenerative Disk Disease, Scoliosis, Carpal Tunnel Syndrome, Fibromyalgia, Fractures, Degenerative Joint Disease, Osteomyelitis or Poliovirus ENT: Negative Cataracts, Glaucoma, Blind, Retinal Detachment, Macular Degeneration, Ear Infection, Deafness, Head Trauma or Eye Prosthesis ENDOCRINE: Negative Endocrine Disorders, Diabetes Mellitus Type 1, Diabetes Mellitus Type 2, Hypoglycemia, Merrimac's Syndrome, Clarendon's Disease, Hyperthyroidism, Hypothyroidism, Parathyroid Disease, Pituitary Disease, Systemic Lupus Erythematosus, Syndrome of Inappropriate Antidiuretic Hormone (SIADH), Adrenal Disease or Graves' Disease HEMATOLOGIC: Negative Blood Disorders, Anemia, Leukemia, Hemophilia, Thalassemia, Sickle Cell Disease or Clotting Problems PSYCHO/SOCIAL: Positive Recreational Drug Use, Depression and Anxiety; Negative Psychiatric Problems, Schizophrenia, Bipolar Disorder, Behavior Problems, Self-Mutilation, Attention Deficit Disorder, Attention Deficit Hyperactivity Disorder, Depression, Post Traumatic Stress Disorder or Eating Disorder OTHER HISTORY: Positive Hospitalization, Chicken Pox and Measles; Negative Autoimmune Disease, Down Syndrome, Autism, Developmental Delay, Shingles, Falls, Blood Transfusions, Blood Transfusion Reaction, Anesthesia Reactions, Organ Transplant, Chemotherapy, Radiation Therapy, Hyperbaric Therapy, MRSA, VRSA, Vancomycin-Resistant Enterococci, Human Immunodeficiency Virus (HIV), Mumps, Rubella (Persian Measles), Pertussis, Clostridium Difficile, Cancer, Breast Cancer, Cervical Cancer, Colorectal Cancer, Lung Cancer, Ovarian Cancer, Prostate Cancer or Testicular Cancer Family History FAMILY HISTORY: Positive Family Cardiac Disorders and Family Gastrointestinal Problems; Negative Family Psychiatric Problems, Family Respiratory Disorders, Family Cancer, Family Surgery or Family Anesthesia Reaction Surgical History SURGICAL: Positive Tonsillectomy; Negative Cardiac Surgery, Open Heart Surgery, Coronary Artery Bypass Graft, Valve Replacement, Vascular Surgery, Coronary Stent, Cardiac Catheterization, Pacemaker, Angiogram, Auto Implanted Cardiovert Defib, Carotid Endarterectomy, Endocrine Surgery, Thyroidectomy, Ear Surgery, Tympanostomy Tube, Eye Surgery, Nose Surgery, Oral Surgery, Adenoidectomy, Cochlear Implant, Corneal Transplant, Throat Surgery, Abdominal Surgery, Tracheostomy, Gastric Bypass Surgery, Gastrostomy, Bowel Surgery, Nephrectomy, Transurethral Resection, Joint Replacement, Amputation, Open Reduction Internal Fixation, Arthroscopy, Neurologic Surgery, Brain Shunt, Mastectomy, Lumpectomy, Hysterectomy, Tubal Ligation, Section, Vasectomy or Organ Transplant Social History SMOKING STATUS: Current some day smoker SECOND HAND EXPOSURE: No SUBSTANCE USE: marijuana and methamphetamine Meds Home Medications and Allergies Home Medications ?Medication ?Instructions ?Recorded ?Confirmed ?Type carvedilol 3.125 mg tablet (Coreg) 3.125 mg PO BID 06/21/21 07/12/25 History buspirone 10 mg tablet 10 mg PO BID 01/23/22 07/12/25 History losartan 100 1 tab PO QDAY 01/23/22 07/12/25 History mg-hydrochlorothiazide 25 mg tablet allopurinol 100 mg tablet 100 mg PO DAILY 09/11/22 07/12/25 History acetaminophen 500 mg tablet 500 mg PO Q6H PRN pain 06/01/25 07/12/25 History gabapentin 600 mg tablet 600 mg PO QDAY 06/01/25 07/12/25 History hydroxyzine HCl 25 mg tablet 25 mg PO HSPRN 06/01/25 07/12/25 History indomethacin 50 mg capsule 50 mg PO QDAY PRN gout 06/01/25 07/12/25 History meclizine 25 mg chewable tablet 25 mg PO .qdayprn PRN motion 06/01/25 07/12/25 History sickness/vertigo omeprazole 40 mg capsule,delayed 40 mg PO QAMAC 06/01/25 07/12/25 History release thiamine HCl (vitamin B1) 100 mg 100 mg PO QDAY 06/01/25 07/12/25 History tablet Allergies Allergy/AdvReac Type Severity Reaction Status Date / Time No Known Allergies Allergy Verified 07/11/25 20:22 Exam Vital Signs Temp Pulse Resp BP Pulse Ox O2 Del Method 97.2 F 86 17 142/98 H 95 Room Air 07/12/25 08:00 07/12/25 08:00 07/12/25 08:00 07/12/25 08:00 07/12/25 08:00 07/12/25 08:00 Narrative Exam Physical examination revealed morbidly obese white male who is 5 feet 9 inches tall weighing 280 pounds with BMI of 41.3. His vital signs are normal Routine Respiratory Exam Comments: Clear breath sounds on auscultation Routine Cardiovascular Exam Comments: Negative for any additional heart sounds Routine Abdominal Exam Comments: Abdomen revealed an umbilical hernia which is palpated when he coughs it has been reduced last night and at the present it is not sticking out Routine Rectal Exam Comments: Deferred Routine Exam Comments: Deferred Routine Extremities Exam Comments: Within normal limits Assessment & Plan Additional Assessment Additional comments: Impression: Incarcerated umbilical hernia Morbid obesity Alcoholism Plan Plan: I advised the patient to undergo repair of the umbilical hernia with mesh. The CT scan showed a loop of bowel in the hernial sac suggesting incarceration might have occurred momentarily and got reduced in the emergency room. To prevent another herniation under emergency surgery patient will require umbilical hernia repair today. The procedure was explained to him and he is agreeable.
--- NOTE | 2025-07-12 10:31 | PC.SS ---
Addendum entered by BUCKY Sotomayor 07/12/25 14:47: Rounding: surgery today, d/c either late today or early tomorrow. Original Note: Patient is a 50 year old male patient presenting to the hospital for abdo pain, hernia. ASW made face to face contact with patient at bedside. ASW introduced self, role, and reason for visit. Patient confirmed demographic information. Patient stated that he lives at home at address on face sheet alone. Patient stated that in case he is unable to make medical decision on his own he would like his life partner to make them Kristen Fernandez [phone]. Patient stated he does not use DME, his PCP is Nicholas last appointment in May, and pharmacy is [facility]. 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 PCP: Dr. Peterson D/c: home Decision maker: Kristen Fernandez [phone].
--- NOTE | 2025-07-12 12:18 | ESOP_ITS ---
Date of Procedure 07/12/25 Pre Op Diagnosis Incarcerated umbilical hernia Post Op Diagnosis Incarcerated umbilical hernia Procedure Repair of the incarcerated umbilical hernia with 1.[address] mesh Findings Patient was found to have omentum that is incarcerated. When he was admitted loop of bowel was in the sac which was reduced before surgery but the omentum was still causing obstruction Procedure Description After the patient was brought to the operating room endotracheal anesthesia was given. Abdomen was prepped with ChloraPrep solution and draped in a sterile manner. Timeout was performed. Curved incision was made over the umbilicus and the skin was retracted. Because of the patient's morbid obesity it was difficu lt to reach the fascia. I removed the incarcerated fat because I could not reduce it. It was clamped with Lizeth clamp and suture-ligated with a 2-0 chromic. Then it was reduced and the defect easily admitted 1 finger. Since the defect was around I decided to use mesh. I used 1.[address] mesh and attach the Marlex straps to the fascial edges. Then subcutaneous tissue was closed with 3-0 plain and 3-0 chromic in 2 layers and the skin was approximated with 4-0 Monocryl subcuticular stitch after injecting local anesthesia. Anesthesia [employer] Implants Implants comments: 1.[address] mesh Pathology / specimen None IVF Infused 800 Estimated Blood Loss 30 Surgeon Souleymane Albert MD Surgical Staff Operation Date: 07/12/25 11:15 Case Staff Anesthesiologist: Raghavendra Lawson RNindustrial education instructor: Ana Patton
--- NOTE | 2025-07-12 12:43 | SUR.PHASEI ---
1231-PATIENT RECEIVED INTO [facility], REPORT RECEIVED FROM GOLD JENSEN AND DR SOUZA. PATIENT HAS NASAL TRUMP (REMOVED AT 1233). PATIENT IS AWAKE, VSS, AND DENIES ANY PAIN OR DISCOMFORT. DRESSING TO MID ABDOMEN IS CLEAN DRY AND INTACT.
--- NOTE | 2025-07-12 12:48 | SUR.PHASEI ---
1247-PATIENT TOLERATING PO FLUIDS.
[2025-07-12] MEDS: fentaNYL CIT INJ 50 mCg/ML AMP 2ML IVP (13:07)
--- NOTE | 2025-07-12 13:17 | SUR.PHASEI ---
1310- REPORT GIVEN TO ANTONINA JENSEN, PATIENT TRANSFERRED BACK TO ROOM 383 IN STABLE CONDITION BY DEON JENSEN.
[2025-07-12] MEDS: SODIUM CHLORIDE 0.9% 1000 ML 1,000 ML 125 ML IV ×2 (14:38→21:46)
--- NOTE | 2025-07-12 15:25 | ESPR_ITS ---
<Statement entered by Trent Valencia MD - 07/13/25 14:37> Patient seen and examined at bedside. I discussed and supervised with the agriculture internship physician who took care of this patient. I personally saw and examined the patient. I agree with most of the assessment and plan. Plan of care discussed with attending Dr. Meneses. Trent Valencia MD PGY-2 Documentation for date of: 07/12/25 Subjective Subjective Interval history: Patient is a 50-year-old morbidly obese male with a history of HFpEF (EF 50 to 55%) hypertension, and gout who presented to the ED on 07/11/2025 with periumbilical pain, nausea, and 10 episodes of?nonbloody?vomiting.? Patient developed an umbilical hernia, which spontaneously reduced after a short period.? CT abdomen and pelvis showed 27 mm umbilical hernia containing small bowel suspicion for early incarceration.? Patient admitted for surgical intervention, who after consultation, recommended surgical umbilical hernia repair to prevent another herniation event in the future.? Vitals remained within normal limits.?WBC 8.8, Hgb 12.0/13.6, BUN 25, and CR 1.4/1.6 elevated from baseline 1.2. Patient underwent successful surgical repair of the hernia with 1.[address] mesh on 07/12/2025. Pt recovered well after the operation. Exam Vital Signs Temp Pulse Resp BP Pulse Ox O2 Del Method O2 Flow Rate 97.5 F 85 18 117/80 92 L Room Air 2 07/12/25 13:20 07/12/25 13:20 07/12/25 13:20 07/12/25 13:20 07/12/25 13:20 07/12/25 13:20 07/12/25 12:45 Narrative Exam General: AOx3, no acute distress, able to speak full sentences HEENT: NC/AT, mucous membranes moist, bilateral sclera anicteric Cardiovascular: regular rate and rhythm, S1/S2 present, no murmurs appreciated Pulmonary: clear to auscultation bilaterally, no rales/rhonchi/wheezes Abdominal: soft, non-tender, distended likely from body habitus, no rebound/guarding, normal bowel sounds present Musculoskeletal: normal ROM, no peripheral edema Skin: warm and dry, intact, no rashes, Neuro: CN II-XII intact, no focal deficits Objective Labs 07/13/25 05:28 07/13/25 05:28 Labs: Laboratory Results - last 24 hr 07/11/25 07/11/25 07/12/25 20:53 21:00 00:53 WBC 10.2 RBC 4.27 L Hgb 13.6 Hct 39.3 L MCV 92 MCH 31.9 MCHC 34.6 RDW Std Deviation 40.3 Plt Count 281 D Neut % (Auto) 75 Lymph % (Auto) 19 [place] % (Auto) 4 Eos % (Auto) 1 Baso % (Auto) 1 Neut # (Auto) 7.6 Lymph # (Auto) 1.9 [place] # (Auto) 0.5 Eos # (Auto) 0.1 Baso # (Auto) 0.1 Immature Gran # (Auto) 0.05 H Absolute Nucleated RBC 0.00 Immature Gran % 1 H Nucleated RBC % 0 APTT Sodium 141 Potassium 4.6 Chloride 104 Carbon Dioxide 25.0 Anion Gap 12 BUN 18 Creatinine 1.6 H Estim Creat Clear Calc 72.0 eGFR 52 L BUN/Creatinine Ratio 11 L Glucose 126 H Calculated Osmolality 285 Lactic Acid 1.5 Calcium 9.5 Corrected Calcium 9.5 Phosphorus Magnesium Total Bilirubin 0.4 AST 16 ALT 26 Alkaline Phosphatase 86 Total Protein 8.3 H Albumin 5.0 Globulin 3.3 Albumin/Globulin Ratio 1.5 Lipase 58 H Ur Collection Type Clean Catch Urine Color Yellow Urine Clarity Clear Urine pH 5.5 Ur Specific [place] 1.026 Urine Protein 1+ A Urine Glucose (UA) Negative Urine Ketones Negative Urine Blood Negative Urine Nitrite Negative Urine Bilirubin Negative Urine Urobilinogen (Auto) 2.0 Ur Leukocyte Esterase Positive Urine RBC 4 H Urine WBC 14 H Ur Squamous Epith Cells 1 Urine Bacteria Rare Hyaline Casts 1 07/12/25 05:20 WBC 8.8 RBC 3.75 L Hgb 12.0 L Hct 35.3 L MCV 94 MCH 32.0 MCHC 34.0 RDW Std Deviation 41.8 Plt Count 229 D Neut % (Auto) 70 Lymph % (Auto) 22 [place] % (Auto) 7 Eos % (Auto) 0 Baso % (Auto) 1 Neut # (Auto) 6.2 Lymph # (Auto) 2.0 [place] # (Auto) 0.6 Eos # (Auto) 0.0 Baso # (Auto) 0.1 Immature Gran # (Auto) 0.04 H Absolute Nucleated RBC 0.00 Immature Gran % 1 H Nucleated RBC % 0 APTT 25.8 Sodium 140 Potassium 4.9 Chloride 103 Carbon Dioxide 27.8 Anion Gap 9 BUN 25 H Creatinine 1.4 H Estim Creat Clear Calc 82.3 eGFR > 60 BUN/Creatinine Ratio 18 Glucose 100 Calculated Osmolality 283 Lactic Acid Calcium 8.4 Corrected Calcium 8.4 L Phosphorus 4.7 Magnesium 1.6 Total Bilirubin 0.6 AST 20 ALT 19 Alkaline Phosphatase 69 Total Protein 7.4 Albumin 4.5 D Globulin 2.9 Albumin/Globulin Ratio 1.6 Lipase Ur Collection Type Urine Color Urine Clarity Urine pH Ur Specific [place] Urine Protein Urine Glucose (UA) Urine Ketones Urine Blood Urine Nitrite Urine Bilirubin Urine Urobilinogen (Auto) Ur Leukocyte Esterase Urine RBC Urine WBC Ur Squamous Epith Cells Urine Bacteria Hyaline Casts Quality Measures Quality Measures none Assessment & Plan Assessment Current Active Medications: Generic Name Dose Route Start Last Admin Trade Name Freq PRN Reason Stop Dose Admin Acetaminophen 650 mg 07/12/25 01:00 Acetaminophen 325 Mg Tablet PO 08/11/25 00:59 Q6H PRN PAIN OR FEVER > 101 Protocol Hydralazine HCl 10 mg 07/12/25 01:11 Hydralazine Inj 20 Mg/Ml Vial IV 08/11/25 01:10 Q4H PRN SBP >180 OR DBP >100 Hydromorphone HCl 1 mg 07/12/25 14:34 07/12/25 14:53 Hydromorphone Inj 2 Mg/Ml Vial IVP 07/17/25 14:33 1 mg Q4HR PRN Administration PAIN SCALE 4-10(Mod-Sev Sodium Chloride 1,000 mls @ 125 mls/hr 07/12/25 13:43 07/12/25 14:38 Ns IV 08/11/25 13:42 125 mls/hr .Q8H CONG Administration Ondansetron HCl 4 mg 07/12/25 01:00 07/12/25 01:33 Ondansetron Inj 2 Mg/Ml Inj 2 Ml IVP 08/11/25 00:59 4 mg Q6H PRN Administration NAUSEA OR VOMITING Protocol Sennosides 1 tab 07/12/25 01:05 Senna Tablet PO 08/11/25 01:04 BID PRN CONSTIPATION Protocol Plan 50-year-old male with a history of HFpEF, hypertension, and gout presents to the ED with periumbilical pain, nausea, and 10 episodes of non-bloody vomiting. Patient admitted for umbilical hernia, with concern for potential bowel incarceration (per imaging). #Incarcerated umbilical hernia s/p surgical repair 07/12/2025 #Intractable abdominal pain, nausea and vomiting, resolved #Diverticulosis Concern for bowel incarceration Periumbilical pain, nausea, and 10 episodes of non-bloody vomiting. After several vomiting episodes, he developed an umbilical hernia, which spontaneously reduced after a short period. WBC within normal range Afebrile CT abdomen/pelvis shows 27 mm umbilical hernia containing small bowel suspicious for early incarceration. ? Patient underwent successful surgical repair of the hernia with 1.[address] mesh on 07/12/2025. Plan ? General Surgery consulted, Dr. Cagle, appreciate recommendations ? N.p.o. ? Dilaudid 1 mg every 4 hours as needed ? No antibiotics indicated at this #HFpEF Last echo 01/10 showed EF 55 to 55% Patient is hypovolemic Will hydrate carefully Plan ? Day team to consider getting cardio clearance if surgery is indicated #LIA Likely pre-renal in setting of decreased po intake and fluid loss Patient given 1L of NS bolus Patient started on 100cc/hr of LR maintenece Avoid/renally dose medications #Hypertension Patient losartan 100mg po qd, Hydrochlorothiazide 25mg po qd, Carvedilol 3.125 mg po bid Plan ? Hydralazine IV as needed while NPO ? Restart home meds when no longer NPO #Alcohol use disorder History of binge drinking 12 tall beers and 1 bottle of vodka every week, last drink 2 days ago -Patient does not appear do be withdrawing. Health Maintenance: Diet: N.p.o. GI prophylaxis: None DVT prophylaxis: SCDs Antibiotics: None CODE STATUS: Full Disposition: MedSur This case was discussed with my attending physician, Dr. Meneses, and senior resident, Dr Valencia. Even though this this note was carefully revised there may still be minor errors in student life vice president due to voice recognition software. Derek Pope, DO PGY I Attending Provider Attestation/Addendum I have seen and examined the patient. I was physically present for the thompson portions of the services provided including history, physical exam, diagnosis, treatment plans and orders. I agree with assessment and plan of care as documented by residents. Even though this this note was carefully revised there may still be minor errors in student life vice president due to voice recognition software. Savita Meneses MD
[2025-07-12 16:02] LABS: Albumin, Serum 4.6 gm/dL (3.5-5.0); Anion Gap 9 (7-16); BUN/Creatinine Ratio 17 Ratio (12-20); Blood Urea Nitrogen 24 mg/dL (9-23); Calcium 8.1 mg/dL (8.3-10.6); Calcium (Corrected) 8.1 mg/dL (8.5-10.1); Carbon Dioxide 25.2 mMol/L (20.0-31.0); Chloride 104 mMol/L (98-107); Creatinine (Component) 1.4 mg/dL (0.6-1.3); Estimated Creatinine Clearance 82.3 mL/min (>60); Glucose 140 mg/dL (74-106); Osmolality,Calculated 281 (275-295); Phosphorous 3.1 mg/dL (2.4-5.1); Potassium 4.7 mMol/L (3.4-5.1); Sodium 138 mMol/L (136-145); eGFR > 60 See Note
[2025-07-12] MEDS: MELATONIN 3 MG TABLET 6 MG PO (22:26)
[2025-07-13] VITALS: BP 119/75; PULSE 89; RESP 18; TEMP 36.4; O2SAT 94
[2025-07-13 00:24] VITALS: PULSE 90; RESP 18; RESP 95
[2025-07-13] MEDS: HYDROmorphone INJ 2 MG/ML VIAL 1 MG IVP ×2 (03:39→07:51)
[2025-07-13 04:00] VITALS: BP 120/79; PULSE 88; RESP 18; TEMP 36.3; O2SAT 95
[2025-07-13] MEDS: SODIUM CHLORIDE 0.9% 1000 ML 1,000 ML 125 ML IV (05:08)
[2025-07-13 05:49] LABS: Basophils # (Auto) 0.0 Thou/mm3 (0.0-0.2); Basophils % (Auto) 0 % (0-2.5); Eosinophils # (Auto) 0.0 Thou/mm3 (0.0-0.5); Eosinophils % (Auto) 0 % (0-10); Hematocrit 33.7 % (41.0-53.0); Hemoglobin 11.7 g/dL (13.5-16.0); Immature Granulocytes Auto 0.05 Thou/mm3 (0.00-0.00); Lymphocytes # (Auto) 0.8 Thou/mm3 (1.0-4.8); Lymphocytes % (Auto) 8 % (10-50); Mean Corpuscular HGB Conc 34.7 g/dl (31.0-37.0); Mean Corpuscular Hemoglobin 33.1 pg (25.0-35.0); Mean Corpuscular Volume 95 fL (80-100); Monocytes # (Auto) 0.4 Thou/mm3 (0.0-0.8); Monocytes % (Auto) 4 % (0-12); Neutrophils # (Auto) 8.6 Thou/mm3 (1.8-7.7); Neutrophils % (Auto) 88 % (37-80); Nucleated Red Blood Cell # 0.00 Thou/mm3 (0.00-0.00); Nucleated Red Blood Cell % 0 /100 WBC (0); Platelet Count 199 Thou/mm3 (140-440); RDW Standard Deviation 41.8 fL (35.1-43.9); Red Blood Count 3.54 Miln/mm3 (4.50-5.90); White Blood Count 9.9 Thou/mm3 (3.8-10.6)
[2025-07-13 05:58] LABS: INR 1.0 (0.9-1.3); Prothrombin Time 10.5 Seconds (9.0-12.2)
[2025-07-13 06:12] LABS: Alanine Aminotransferase 19 U/L (10-49); Albumin, Serum 4.7 gm/dL (3.5-5.0); Albumin/Globulin Ratio 1.6 (1.2-2.2); Alkaline Phosphatase 66 U/L (46-116); Anion Gap 11 (7-16); Aspartate Amino Transferase 22 U/L (0-34); BUN/Creatinine Ratio 13 Ratio (12-20); Bilirubin,Total 0.7 mg/dL (0.3-1.2); Blood Urea Nitrogen 14 mg/dL (9-23); Calcium 8.3 mg/dL (8.3-10.6); Calcium (Corrected) 8.3 mg/dL (8.5-10.1); Carbon Dioxide 20.8 mMol/L (20.0-31.0); Chloride 106 mMol/L (98-107); Creatinine (Component) 1.1 mg/dL (0.6-1.3); Estimated Creatinine Clearance 104.8 mL/min (>60); Globulin 2.9 gm/dL (2.3-3.5); Glucose 133 mg/dL (74-106); Osmolality,Calculated 278 (275-295); Potassium 4.5 mMol/L (3.4-5.1); Sodium 138 mMol/L (136-145); Total Protein 7.6 gm/dL (5.7-8.2); eGFR > 60 See Note
[2025-07-13 06:44] VITALS: PULSE 86; RESP 18; RESP 97
[2025-07-13 07:30] VITALS: BP 145/96; PULSE 74; RESP 18; TEMP 36.3; O2SAT 95
--- NOTE | 2025-07-13 09:57 | PD.SURPROG ---
Documentation for date of: 07/13/25 Subjective Subjective Narrative: Patient is passing flatus and tolerating clear liquids and has been advanced to full liquids Exam Vital Signs Temp Pulse Resp BP Pulse Ox O2 Del Method O2 Flow Rate 97.3 F 74 18 145/96 H 95 Room Air 2 07/13/25 07:30 07/13/25 07:30 07/13/25 07:30 07/13/25 07:30 07/13/25 07:30 07/13/25 07:30 07/12/25 12:45 His vital signs are normal Routine Abdominal Exam Comments: Abdominal examination is negative. Suture line is intact with no hematoma Assessment & Plan Assessment Additional comments: Impression: Stable postoperative course following incarcerated umbilical hernia Plan Plan: We shall discharge the patient today and I will see him in my office in 1 week PROCEDURES: Procedures Repair of the incarcerated umbilical hernia with 1.[address] mesh
[2025-07-13 11:50] VITALS: BP 135/93; PULSE 78; RESP 18; TEMP 36.5; O2SAT 96
[2025-07-13] MEDS: HYDROcodone/APAP 5/325 TABLET 1 TAB PO (12:40)
--- NOTE | 2025-07-13 12:46 | PC.SS ---
Follow up note: Control pain. On IV pain meds. Pt will return home upon dc.
--- NOTE | 2025-07-13 15:03 | ESDS_ITS ---
<Statement entered by Julianne Mae DO - 07/14/25 08:17> I, Julianne Mae DO, attest that I was physically present for the thompson portions of the service and evaluated the patient with the resident and I reviewed and discussed the case with the resident and agree with the resident's findings and plans of care as documented above Patient seen and evaluated this AM. He states he is feeling well. Abdomen is soft and nontender. Incision above umbilicus is clean, dry and intact. Patient has been tolerating diet. He has been cleared for discharge by surgeon. Patient is stable for discharge home. <Statement entered by Trent Valencia MD - 07/13/25 16:40> Patient seen and examined at bedside. I discussed and supervised with the clinical nursing intern physician who took care of this patient. I personally saw and examined the patient. I agree with most of the assessment and plan. Plan of care discussed with attending Dr. Mea. Trent Valencia MD PGY-2 Planned Discharge Date 07/13/25 DS: Providers Provider Date of admission: 07/12/25 01:09 Primary care physician: Nicholas Fernandez MD Admitting Provider: Sujatha Porter MD Attending Provider on Admission: Julianne Mae DO Consults: 07/12/25 01:15 Consult to General Surgery Routine Comment: umbilicial hernia, concern for bowel incarceration Consulting Provider: Souleymane Albert 07/12/25 02:19 Referral [facility] Routine Comment: Attending Provider on DC: Derek Pope DO Discharging Provider: Derek Pope DO DS: Diagnosis Problem List Completed Was Problem List Reviewed/Reconciled?: Yes Hospital Course Hospital Course Hospital course: Patient is a 50-year-old morbidly obese male with a history of HFpEF (EF 50 to 55%) hypertension, and gout who presented to the ED on 07/11/2025 with periumbilical pain, nausea, and 10 episodes of?nonbloody?vomiting.? Patient developed an umbilical hernia, which spontaneously reduced after a short period.? CT abdomen and pelvis showed 27 mm umbilical hernia containing small bowel suspicion for early incarceration.? Patient admitted for surgical intervention, who after consultation, recommended surgical umbilical hernia repair to prevent another herniation event in the future.? Vitals remained within normal limits.?WBC 8.8, Hgb 12.0/13.6, BUN 25, and CR 1.4/1.6 elevated from baseline 1.2. Patient underwent successful surgical repair of the hernia with 1.[address] mesh on 07/12/2025. Pt recovered well after the operation. By the morning after patient had received 5 doses of Dilaudid 1 mg every 4 hours, pain very well-controlled. Patient reported improvement in symptoms and less need for pain medications. Able to tolerate diet that was advanced to regular, passing flatus, and having bowel movements. Patient did not develop any fevers after the operation or through the night that followed before his discharge. at the time of discharge, patient is medically stable and deemed safe to return to her previous state of living. Admission diagnosis: #Incarcerated umbilical hernia status postsurgical repair 07/12/2025 #Intractable abdominal pain, nausea and vomiting, resolved #Diverticulosis #HFpEF #LIA #Hypertension #Alcohol use disorder Discharge instructions: - Follow up with primary care physician within 1 week, avoid straining and avoid heavy lifting. May shower and leave it open per surgeon recs. - Advance her diet as tolerated - Continue all your other home medications, we have made no medication changes - Follow-up with general surgery in office within 1 week - Return to emergency department if your symptoms worsen This case was discussed with my attending physician, Dr. Mae, and senior resident, Dr Valencia. Even though this this note was carefully revised there may still be minor errors in arnp due to voice recognition software. Derek Pope, PGY I Status at Discharge Cognitive/behavioral status at discharge: Stable Functional status at discharge: independent ambulation Overall status at discharge: patient is back to baseline Time Spent with Patient Time attestation: Total time spent providing and/or coordinating discharge services: More than 50% of the patient's total hospital stay Time spent: Greater than 30 minutes Exam Vital Signs Temp Pulse Resp BP Pulse Ox O2 Del Method O2 Flow Rate 97.7 F 78 18 135/93 H 96 Room Air 2 07/13/25 11:50 07/13/25 11:50 07/13/25 11:50 07/13/25 11:50 07/13/25 11:50 07/13/25 11:50 07/12/25 12:45 Narrative Exam General: AOx3, no acute distress, able to speak full sentences HEENT: NC/AT, mucous membranes moist, bilateral sclera anicteric Cardiovascular: regular rate and rhythm, S1/S2 present, no murmurs appreciated Pulmonary: clear to auscultation bilaterally, no rales/rhonchi/wheezes Abdominal: soft, non-tender, distended likely from body habitus, no rebound/guarding, normal bowel sounds present Musculoskeletal: normal ROM, no peripheral edema Skin: warm and dry, intact, no rashes, Neuro: CN II-XII intact, no focal deficits Discharge Plan Plan Patient Disposition: HOME (Self Care) Patient condition on transfer: Stable Care Plan Goals: - Follow up with primary care physician within 1 week, avoid straining and avoid heavy lifting. May shower and leave it open per surgeon recs. - Advance her diet as tolerated - Continue all your other home medications, we have made no medication changes - Follow-up with general surgery in office within 1 week - Return to emergency department if your symptoms worsen Prescriptions/Referrals Prescriptions/Med Rec: New hydrocodone-acetaminophen 7.5-325 mg tablet 1 tab PO Q6H MDD 4 Qty: 20 0RF Continued carvedilol [Coreg] 3.125 mg tablet 3.125 mg PO BID Rx Instructions: must administer with a meal/food losartan-hydrochlorothiazide 100-25 mg tablet 1 tab PO QDAY buspirone 10 mg tablet 10 mg PO BID allopurinol 100 mg tablet 100 mg PO DAILY albuterol sulfate 90 mcg/actuation aerosol powdr breath activated 2 inh inhalation Q6H PRN (Reason: shortness of breath or wheezing) Qty: 1 0RF omeprazole 40 mg capsule,delayed release(DR/EC) 40 mg PO QAMAC thiamine HCl (vitamin B1) 100 mg tablet 100 mg PO QDAY hydroxyzine HCl 25 mg tablet 25 mg PO HSPRN meclizine 25 mg tablet,chewable 25 mg PO .qdayprn PRN (Reason: motion sickness/vertigo) gabapentin 600 mg tablet 600 mg PO QDAY acetaminophen 500 mg tablet 500 mg PO Q6H PRN (Reason: pain) indomethacin 50 mg capsule 50 mg PO QDAY PRN (Reason: gout) Referrals: Nicholas Fernandez MD [Primary Care Provider, Family Practice] Souleymane Albert MD [Physician, General Surgery] Patient/Caregiver Discharge Instructions Discharge Activity: activity as tolerated Education Materials: After Hernia Surgery Print Language: Croatian Activity Restrictions/Additional Instructions: Diet as tolerated May shower and leave it open Activities as tolerated Avoid going to work until seen in my office on July 21Sunday at [address]. Call [phone] for an appointment time Stand Alone Forms: Lia Award Info., Patient Portal Info Letter Discharge Order Discharge Orders: Discharge (Routine); Ordered 07/13/25 Ordered By: Souleymane Albert Quality Discharge Quality Measures VTE prophylaxis
== END 2025-07-13 15:02 | disposition home or self-care (01) | DRG 228 ==
LOC: SERX 07-12 00:27 → SERHOLD 07-12 01:11 → S3SX 07-12 01:49
PROVIDERS: Nurse Practitioner Family; Surgery; Admitting Provider Student in an Organized Health Care Education/Training Program; Emergency Provider Emergency Medicine; PCP Family Medicine; Visit Provider Internal Medicine
DX: K42.0 Umbilical hernia with obstruction, without gangrene (principal); E66.01 Morbid (severe) obesity due to excess calories; I50.32 Chronic diastolic (congestive) heart failure; I11.0 Hypertensive heart disease with heart failure; M10.9 Gout, unspecified; E86.1 Hypovolemia; N17.9 Acute kidney failure, unspecified; F10.20 Alcohol dependence, uncomplicated; J45.909 Unspecified asthma, uncomplicated; F17.200 Nicotine dependence, unspecified, uncomplicated; Z79.899 Other long term (current) drug therapy; Z68.41 Body mass index [BMI] 40.0-44.9, adult
CPT/HCPCS: 36415; 74176; 80053; 80069; 81001; 83605; 83690; 83735; 84100; 85025; 85610; 85730; 87081; 87635; 96361; 96372; 96374; 96375; 96376; 99283; A4649; C1781; J0131; J0330; J1100; J1171; J1200; J2270; J2371; J2405; J2598; J2704; J2710; J2765; J3010; J3490; J7030; J7050; J7120; A9270; J1596; J1805